=== PATIENT | female | born 1975 | race Caucasian/White ===

== ENCOUNTER 2016-12-14 14:17 | Emergency (ER) | payer BC ==
[~2016-12-14] VITALS: Ht 154.9 cm; Wt 99.8 kg
[~2016-12-14 14:17] MED LIST: ALBUTEROL INH; BACT800T OR; CHLORTHALIDONE PO; IBUP600T OR; IRON28TA OR; LISI20TA5 OR; PERC5TAB8 OR; PRENTAB8 PO
[2016-12-14 16:26] VITALS: BP 159/97
--- NOTE | 2016-12-15 07:51 | REP ---
ULTRASOUND LEFT BREAST: Real-time sonographic evaluation of the left breast is performed in the region of 3 -o'clock position to 5 -o'clock position where there is palpable abnormality with tenderness, for 1 day. At the 3 -o'clock region of the left breast is an oval hyperechoic nodule with small hypoechoic areas within it. It measures 1.1 x 0.5 x 1.1 cm. There is another adjacent cyst measuring 2 x 4 x 3 mm. This may represent a small hematoma or area of fat necrosis. No other sonographic abnormalities are seen. IMPRESSION: At 3 -o'clock position is an oval hyperechoic heterogeneous nodule 1.1 cm in maximum diameter. This may represent hematoma or an area of fat necrosis. IT is probably benign. ACR 3. Recommend followup ultrasound in 3 to 6 months. Signed by Chad Coughlin MD 12/15/2016 12:19 P
== END 2016-12-14 16:27 | disposition home or self-care (01) ==
LOC: M ED 14:39
DX: N63 Unspecified lump in breast (principal); I10 Essential (primary) hypertension; J45.909 Unspecified asthma, uncomplicated; Z79.899 Other long term (current) drug therapy; F17.210 Nicotine dependence, cigarettes, uncomplicated

== ENCOUNTER → 2017-01-21 | Outpatient (CLI) | payer BC ==
--- NOTE | 2017-01-21 15:56 | REP ---
BILATERAL MAMMOGRAM WITH DIAGNOSTIC MAMMOGRAM LEFT BREAST: HISTORY: Ultrasound 12/14/2016 showing a nodule at the 3-o'clock position of the left breast, hyperechoic and felt to be probably benign, possibly hematoma or area of fat necrosis. MLO and CC views of both breasts are performed. Spot compression views of the outer left breast are performed as well. The area of the palpable abnormality at 3-o'clock in the left breast is marked on the skin with a triangular marker. In that portion of the left breast, there is an oval 1 cm nodule which is smoothly marginated and well-defined. This appears to correspond to the sonographic abnormality. No other mass is seen bilaterally. No clustered microcalcifications are seen. IMPRESSION: ACR 3 probably benign. In the lateral left breast at the site of the reported palpable abnormality is an oval nodule measuring 1 cm in maximum diameter. Margins are smooth and well defined. This corresponds to the ultrasound finding of a hyperechoic nodule at that location. Again, this probably represents an area of fat necrosis or hematoma. Recommend followup ultrasound in 6 months. BI-RADS/ACR category 3 mammogram. Probably benign findings. Initial short-term followup (usually 6 month) examination. This mammogram was interpreted with the aid of an FDA-approved computer-aided detection system. The patient states she/he had a clinical breast exam in December 2016. The patient letter being requested is M3. Signed by Chad Coughlin MD 01/22/2017 05:11 P
== END ==
LOC: M RAD 14:06
PROVIDERS: ATTEND Nurse Practitioner Family
DX: N63 Unspecified lump in breast (principal)

== ENCOUNTER 2017-04-05 11:44 | Emergency (ER) | payer BC ==
[~2017-04-05] VITALS: Ht 154.9 cm; Wt 97.7 kg
[2017-04-05 11:52] VITALS: BP 145/85
[2017-04-05] MEDS ORDERED: LISI-538 PO (11:54)
[2017-04-05] MEDS ORDERED: IBUP-1022 PO (11:54)
[2017-04-05] MEDS ORDERED: PHEN200T22 PO (13:03)
[2017-04-05] MEDS ORDERED: NITR100C39 PO (13:03)
== END 2017-04-05 13:10 | disposition home or self-care (01) ==
LOC: M ED 11:44
DX: N39.0 Urinary tract infection, site not specified (principal); Z72.0 Tobacco use

== ENCOUNTER 2017-04-18 17:54 | Emergency (ER) | payer BC ==
[~2017-04-18] VITALS: Ht 154.9 cm; Wt 100.0 kg
[~2017-04-18 17:54] MED LIST changes: +IBUP-1022 PO; +LISI-538 PO; +NITR100C39 PO; +PHEN200T22 PO
[2017-04-18 17:55] VITALS: BP 149/82
[2017-04-18] MEDS ORDERED: CIPR-249 PO (18:20)
[2017-04-18] MEDS ORDERED: DIFL150T PO (18:20)
== END 2017-04-18 18:35 | disposition home or self-care (01) ==
LOC: M ED 17:54
DX: N10 Acute pyelonephritis (principal); Z79.899 Other long term (current) drug therapy

== ENCOUNTER → 2017-07-29 | Outpatient (CLI) | payer BC ==
[~2017-07-29] MED LIST changes: +CIPR-249 PO; +DIFL150T PO
[2017-07-29 08:51] LABS: BASO % 0.5 % (0.0-1.0); EOS # 0.2 10^3/uL (0.0-0.50); EOS % 2.5 % (0.0-3.0); IMMATURE GRANULOCYTE % 0.4 % (0-0); LYMPH % 40.6 % (24.0-44.0); MEAN CORPUSCULAR HGB CONC 33.6 g/dl (32.0-36.5); MEAN CORPUSCULAR VOLUME 92.3 fl (80.0-96.0); MONO # 0.4 10^3/uL (0.0-0.8); MONO % 4.8 % (0.0-5.0); NEUTROPHILS # 3.8 10^3/uL (1.8-7.7); NEUTROPHILS % 51.2 % (36.0-66.0); PLATELET COUNT, AUTOMATED 348 10^3/uL (150-450); RED CELL DISTRIBUTION WIDTH 13.2 % (11.5-14.5); WHITE BLOOD COUNT 7.3 10^3/uL (4.0-10.0)
[2017-07-29 09:33] LABS: ALBUMIN 3.8 GM/DL (3.2-5.2); ALBUMIN/GLOBULIN RATIO 1.15 (1.00-1.93); ALKALINE PHOSPHATASE 75 U/L (45-117); ALT/SGPT 23 U/L (12-78); ANION GAP 6 MEQ/L (8-16); AST/SGOT 13 U/L (7-37); BILIRUBIN,TOTAL 0.3 MG/DL (0.2-1.0); BLOOD UREA NITROGEN 12 MG/DL (7-18); CALCIUM LEVEL 8.6 MG/DL (8.5-10.1); CARBON DIOXIDE LEVEL 28 MEQ/L (21-32); CHLORIDE LEVEL 107 MEQ/L (98-107); CHOLESTEROL LEVEL 176 MG/DL (<200); CREATININE FOR GFR 0.68 MG/DL (0.55-1.02); GLOMERULAR FILTRATION RATE > 60.0 (>60); GLUCOSE, FASTING 86 MG/DL (70-105); POTASSIUM SERUM 4.6 MEQ/L (3.5-5.1); SODIUM LEVEL 141 MEQ/L (136-145); TOTAL PROTEIN 7.1 GM/DL (6.4-8.2); TRIGLYCERIDES LEVEL 146 MG/DL (<150)
--- NOTE | 2017-07-29 11:06 | REP ---
DIGITAL DIAGNOSTIC UNILATERAL LEFT BREAST MAMMOGRAPHY WITH CAD AND FOCUSED LEFT BREAST SONOGRAPHY: HISTORY: 6-month follow-up mammography and sonography for palpable nodule left breast upper outer quadrant. Comparison mammography January 21, 2017. Comparison sonography December 14, 2016 FINDINGS: Today's craniocaudad view again demonstrates a mixed density, oval-shaped, well-circumscribed 8 mm nodule projecting in the lateral aspect of the left breast. This is not well seen on either MLO or true ML views of the left breast. Focal spot compression CC view shows this nodule which appears to contain intralesional low fat. No other significant mammographic finding. SONOGRAPHIC FINDINGS: The left breast is scanned and 3-o'clock position. A slightly hyperechoic mixed echogenicity nodule is again seen measuring 8 mm x 4 x 6 mm located between 5 and 6 cm from the nipple. It is slightly less heterogeneous than previously. No suspicious features. IMPRESSION: The nodule is consistent with a small area of fat necrosis. It has intralesional fat on the focal spot compression images. BI-RADS/ACR category 2 mammogram. Benign finding(s). Routine annual screening mammography (for women over age 40). This mammogram was interpreted with the aid of an FDA-approved computer-aided detection system. The patient states she/he had a clinical breast exam in July 2017. The patient letter being requested is M2. Signed by Akil Guevara MD 07/29/2017 11:42 A
== END ==
LOC: M RAD 07:52
PROVIDERS: ATTEND Nurse Practitioner Family
DX: R92.2 Inconclusive mammogram (principal); I10 Essential (primary) hypertension; E56.9 Vitamin deficiency, unspecified; Z13.220 Encounter for screening for lipoid disorders; N63.21 Unspecified lump in the left breast, upper outer quadrant
CPT/HCPCS: 36415; 76642; 80053; 80061; 82306; 85025; G0206

== ENCOUNTER → 2018-02-12 | Outpatient (CLI) | payer BC ==
[2018-02-12 09:29] LABS: BASO % 0.7 % (0.0-1.0); EOS # 0.1 10^3/uL (0.0-0.50); EOS % 2.1 % (0.0-3.0); HEMATOCRIT 41.2 % (36.0-47.0); HEMOGLOBIN 14.2 g/dl (12.0-15.5); IMMATURE GRANULOCYTE % 0.2 % (0-3.0); LYMPH # 2.3 10^3/uL (1.5-4.5); LYMPH % 38.6 % (24.0-44.0); MEAN CORPUSCULAR HEMOGLOBIN 31.1 pg (27.0-33.0); MEAN CORPUSCULAR HGB CONC 34.5 g/dl (32.0-36.5); MEAN CORPUSCULAR VOLUME 90.4 fl (80.0-96.0); MONO # 0.5 10^3/uL (0.0-0.8); MONO % 7.6 % (0.0-5.0); NEUTROPHILS # 3.1 10^3/uL (1.8-7.7); NEUTROPHILS % 50.8 % (36.0-66.0); PLATELET COUNT, AUTOMATED 330 10^3/uL (150-450); RED BLOOD COUNT 4.56 10^6/uL (4.00-5.40); RED CELL DISTRIBUTION WIDTH 13.3 % (11.5-14.5); WHITE BLOOD COUNT 6.1 10^3/uL (4.0-10.0)
[2018-02-12 09:39] LABS: ALBUMIN 3.7 GM/DL (3.2-5.2); ALBUMIN/GLOBULIN RATIO 1.06 (1.00-1.93); ALKALINE PHOSPHATASE 90 U/L (45-117); ALT/SGPT 25 U/L (12-78); ANION GAP 9 MEQ/L (8-16); AST/SGOT 12 U/L (7-37); BILIRUBIN,TOTAL 0.3 MG/DL (0.2-1.0); BLOOD UREA NITROGEN 10 MG/DL (7-18); CALCIUM LEVEL 9.1 MG/DL (8.5-10.1); CARBON DIOXIDE LEVEL 26 MEQ/L (21-32); CHLORIDE LEVEL 106 MEQ/L (98-107); CREATININE FOR GFR 0.75 MG/DL (0.55-1.30); GLOMERULAR FILTRATION RATE > 60.0 (>58); GLUCOSE, FASTING 82 MG/DL (70-100); POTASSIUM SERUM 4.8 MEQ/L (3.5-5.1); SODIUM LEVEL 141 MEQ/L (136-145); TOTAL PROTEIN 7.2 GM/DL (6.4-8.2)
[2018-02-12 09:44] LABS: TOTAL 25(OH) VITAMIN D 39.1 NG/ML (30.0-100.0)
== END ==
LOC: M LAB 07:39
DX: K21.9 Gastro-esophageal reflux disease without esophagitis (principal); E55.9 Vitamin D deficiency, unspecified
CPT/HCPCS: 80053

== ENCOUNTER 2018-08-17 16:35 | Emergency (ER) | payer BC ==
[~2018-08-17] VITALS: Ht 154.9 cm; Wt 86.4 kg
[2018-08-17 16:36] VITALS: BP 134/86
[2018-08-17] MEDS ORDERED: PHEN-239 (16:40)
[2018-08-17] MEDS ORDERED: MACR100C43 PO (17:26)
[2018-08-17] MEDS ORDERED: PYRI1TAB5 PO (17:26)
[2018-08-17] MEDS ORDERED: DIFL150T PO (17:26)
[2018-08-17] MEDS ORDERED: NITROFURANTOIN (MACROBID) 100 MG CAP PO ONE (17:30)
== END 2018-08-17 17:40 | disposition home or self-care (01) ==
LOC: M ED 16:35
DX: R30.0 Dysuria (principal); Z79.899 Other long term (current) drug therapy

== ENCOUNTER → 2018-09-26 | Outpatient (CLI) | payer BC ==
[~2018-09-26] MED LIST changes: +MACR100C43 PO; +PHEN-239; +PYRI1TAB5 PO
[2018-09-26 08:32] LABS: BASO % 0.5 % (0.0-1.0); EOS # 0.1 10^3/uL (0.0-0.50); EOS % 1.6 % (0.0-3.0); HEMATOCRIT 40.9 % (36.0-47.0); HEMOGLOBIN 13.5 g/dl (12.0-15.5); LYMPH # 2.4 10^3/uL (1.5-4.5); LYMPH % 43.3 % (24.0-44.0); MEAN CORPUSCULAR HEMOGLOBIN 31.3 pg (27.0-33.0); MEAN CORPUSCULAR VOLUME 94.9 fl (80.0-96.0); MONO # 0.3 10^3/uL (0.0-0.8); MONO % 5.8 % (0.0-5.0); NEUTROPHILS # 2.7 10^3/uL (1.8-7.7); NEUTROPHILS % 48.4 % (36.0-66.0); PLATELET COUNT, AUTOMATED 329 10^3/uL (150-450); RED BLOOD COUNT 4.31 10^6/uL (4.00-5.40); WHITE BLOOD COUNT 5.6 10^3/uL (4.0-10.0)
[2018-09-26 08:58] LABS: ALBUMIN 3.6 GM/DL (3.2-5.2); ALT/SGPT 26 U/L (12-78); BILIRUBIN,TOTAL 0.3 MG/DL (0.2-1.0); BLOOD UREA NITROGEN 14 MG/DL (7-18); CALCIUM LEVEL 8.6 MG/DL (8.5-10.1); CARBON DIOXIDE LEVEL 28 MEQ/L (21-32); CHLORIDE LEVEL 108 MEQ/L (98-107); CHOLESTEROL LEVEL 160 MG/DL (<200); CHOLESTEROL RISK RATIO 3.636 (<5); CREATININE FOR GFR 0.62 MG/DL (0.55-1.30); GLOMERULAR FILTRATION RATE > 60.0 (>58); GLUCOSE, FASTING 84 MG/DL (70-100); HDL CHOLESTEROL 44 MG/DL (>40); LDL CHOLESTEROL 96 MG/DL (<100); NON-HDL-C 116 MG/DL; POTASSIUM SERUM 4.4 MEQ/L (3.5-5.1); SODIUM LEVEL 143 MEQ/L (136-145); TOTAL PROTEIN 6.8 GM/DL (6.4-8.2); TRIGLYCERIDES LEVEL 100 MG/DL (<150)
== END ==
LOC: M LAB 08:08
PROVIDERS: ATTEND Nurse Practitioner Family
DX: I10 Essential (primary) hypertension (principal)

== ENCOUNTER 2019-01-24 15:36 | Emergency (ER) | payer BC ==
[~2019-01-24] VITALS: Ht 154.9 cm; Wt 89.1 kg
[2019-01-24] MEDS ORDERED: IBUP-1114 PO (15:50)
--- NOTE | 2019-01-24 16:16 | REP ---
Clinical: Trauma. Comparison: None . Findings: The ventricles, sulci, and cisterns are normal in position and appearance. Coughlin-white differentiation is maintained. No acute intracranial hemorrhage, mass/mass effect, pathology or trauma/injury. No evidence for acute infarction. No extra-axial fluid collection. Calvarium is intact. Paranasal sinuses and mastoid air cells are clear. Impression: No evidence for acute intracranial pathology or trauma/injury. Electronically Signed by Murali Bajwa MD 01/24/2019 04:07 P
--- NOTE | 2019-01-24 16:17 | REP ---
Clinical: Trauma. Technique: Axial noncontrast images from the skull base to the thoracic inlet with coronal and sagittal re-formations. Findings: Straightening of normal lordosis is nonspecific. Vertebral bodies are intact and there is no evidence for acute fracture / compression injury or subluxation. Posterior elements and spinous processes are intact. Spinal canal is patent. Surrounding soft tissues are unremarkable. Impression: 1. Essentially normal age-appropriate cervical spine CT. 2. No evidence for acute trauma/injury or significant pathology. 3. Straightening of normal lordosis is nonspecific and may be secondary to positioning versus pain/spasm. Electronically Signed by Murali Bajwa MD 01/24/2019 04:08 P
[2019-01-24] MEDS ORDERED: REGL10TA6 PO (17:43)
[2019-01-24] MEDS ORDERED: METOCLOPRAMIDE 10 MG TAB PO ONE (17:45)
[2019-01-24 18:00] VITALS: BP 132/88
== END 2019-01-24 18:01 | disposition home or self-care (01) ==
LOC: M ED 15:36
DX: S06.0X0A Concussion without loss of consciousness, initial encounter (principal); S00.03XA Contusion of scalp, initial encounter; S16.1XXA Strain of muscle, fascia and tendon at neck level, initial encounter; W22.8XXA Striking against or struck by other objects, initial encounter; Y92.098 Other place in other non-institutional residence as the place of occurrence of the external cause; I10 Essential (primary) hypertension; Z79.899 Other long term (current) drug therapy

== ENCOUNTER → 2019-04-15 | Outpatient (CLI) | payer BC ==
[~2019-04-15] MED LIST changes: +IBUP-1114 PO; +REGL10TA6 PO
--- NOTE | 2019-04-15 15:32 | REP ---
BILATERAL MAMMOGRAM WITH 3D TOMOSYNTHESIS, DIAGNOSTIC MAMMOGRAM RIGHT BREAST AND RIGHT BREAST ULTRASOUND: The patient reports a palpable lump far posterior in the upper outer quadrant of the right breast. The area is marked on the skin with a triangular marker. There is no family history of breast cancer. [facility] lifetime risk of breast cancer 12.1%. MLO and CC views of both breasts performed with 3D tomosynthesis. Additional spot compression views performed of the upper outer quadrant of the right breast. There is mild scattered fibroglandular tissue again seen bilaterally. Stable intramammary lymph node is again seen in the outer left breast. There is no mammographic abnormality at the site of the palpable lump. There is no mass or clustered microcalcifications bilaterally. Normal sized lymph nodes are seen in both axillary regions. Real-time sonographic evaluation of the right breast performed at the site of the palpable lump far posterior in the upper outer quadrant. There is a focal hyperechoic area at that location measuring approximately 9 x 4 x 8 mm with echotexture consistent with a small focal fat lobule, benign. IMPRESSION: ACR 2 benign. No suspicious mass or clustered microcalcifications. No mammographic abnormality is seen at the site of the palpable lump in the upper outer quadrant of the right breast posteriorly. By ultrasound there appears to be a small fat lobule at that location with no suspicious mass sonographically. There is an intramammary lymph node in the outer left breast which is stable compared to the prior study in 2017. Recommend followup mammogram in one year. BIRADS 2: BI-RADS/ACR category 2 mammogram. Benign Findings. This mammogram was interpreted with the aid of an FDA-approved computer-aided detection system. The patient states she/he had a clinical breast exam in 07/2018. The patient letter being requested is M2. Electronically Signed by Chad Coughlin MD 04/15/2019 04:45 P
== END ==
LOC: M RAD 13:46
PROVIDERS: ATTEND Physician Assistant
DX: N63.10 Unspecified lump in the right breast, unspecified quadrant (principal); N64.4 Mastodynia
CPT/HCPCS: 76642; 77066; G0279

== ENCOUNTER → 2020-01-09 | Outpatient (CLI) | payer BC ==
[2020-01-09 14:44] LABS: BASO % 0.6 % (0.0-1.0); EOS # 0.1 10^3/uL (0.0-0.5); EOS % 0.8 % (0.0-3.0); HEMATOCRIT 39.7 % (36.0-47.0); HEMOGLOBIN 13.4 g/dl (12.0-15.5); LYMPH # 2.7 10^3/uL (1.5-5.0); LYMPH % 37.6 % (24.0-44.0); MEAN CORPUSCULAR HEMOGLOBIN 30.7 pg (27.0-33.0); MEAN CORPUSCULAR HGB CONC 33.8 g/dl (32.0-36.5); MEAN CORPUSCULAR VOLUME 91.1 fl (80.0-96.0); MONO # 0.5 10^3/uL (0.0-0.8); MONO % 6.9 % (0.0-5.0); NEUTROPHILS # 3.9 10^3/uL (1.5-8.5); PLATELET COUNT, AUTOMATED 317 10^3/uL (150-450); RED BLOOD COUNT 4.36 10^6/uL (4.00-5.40); WHITE BLOOD COUNT 7.2 10^3/uL (4.0-10.0)
[2020-01-09 15:03] LABS: ERYTHROCYTE SEDIMENTATION RATE 14 mm/hr (0-20)
[2020-01-09 15:18] LABS: ALBUMIN 3.7 GM/DL (3.2-5.2); ALT/SGPT 18 U/L (12-78); BILIRUBIN,TOTAL 0.2 MG/DL (0.2-1.0); BLOOD UREA NITROGEN 7 MG/DL (7-18); CALCIUM LEVEL 8.5 MG/DL (8.5-10.1); CARBON DIOXIDE LEVEL 23 MEQ/L (21-32); CHLORIDE LEVEL 108 MEQ/L (98-107); CREATININE FOR GFR 0.65 MG/DL (0.55-1.30); GLOMERULAR FILTRATION RATE > 60.0 (>58); GLUCOSE, FASTING 77 MG/DL (70-100); POTASSIUM SERUM 4.1 MEQ/L (3.5-5.1); RHEUMATOID FACTOR QUANT < 10.0 IU/ML (<15.0); SODIUM LEVEL 137 MEQ/L (136-145); TOTAL PROTEIN 7.1 GM/DL (6.4-8.2)
[2020-01-10 13:33] LABS: ANTINUCLEAR ANTIBODIES DIRECT Negative (Negative); SJOGREN'S ANTI SS-A <0.2 AI (0.0-0.9); SJOGREN'S ANTI SS-B <0.2 AI (0.0-0.9)
== END ==
LOC: M LAB 13:44
PROVIDERS: ATTEND Nurse Practitioner Family
DX: R21 Rash and other nonspecific skin eruption (principal)

== ENCOUNTER → 2020-01-19 | Outpatient (CLI) | payer BC ==
[2020-01-19 10:28] LABS: BASO % 0.5 % (0.0-1.0); EOS # 0.1 10^3/uL (0.0-0.5); EOS % 2.1 % (0.0-3.0); LYMPH # 2.1 10^3/uL (1.5-5.0); LYMPH % 35.9 % (24.0-44.0); MEAN CORPUSCULAR HEMOGLOBIN 30.7 pg (27.0-33.0); MEAN CORPUSCULAR HGB CONC 33.3 g/dl (32.0-36.5); MEAN CORPUSCULAR VOLUME 92.2 fl (80.0-96.0); MONO # 0.4 10^3/uL (0.0-0.8); MONO % 7.2 % (0.0-5.0); NEUTROPHILS # 3.1 10^3/uL (1.5-8.5); PLATELET COUNT, AUTOMATED 358 10^3/uL (150-450); RED BLOOD COUNT 4.23 10^6/uL (4.00-5.40); WHITE BLOOD COUNT 5.8 10^3/uL (4.0-10.0)
[2020-01-19 10:52] LABS: ALBUMIN 3.5 GM/DL (3.2-5.2); ALT/SGPT 18 U/L (12-78); BILIRUBIN,DIRECT < 0.1 MG/DL (0.0-0.2); BILIRUBIN,TOTAL 0.2 MG/DL (0.2-1.0); BLOOD UREA NITROGEN 10 MG/DL (7-18); CALCIUM LEVEL 8.6 MG/DL (8.5-10.1); CARBON DIOXIDE LEVEL 25 MEQ/L (21-32); CHLORIDE LEVEL 110 MEQ/L (98-107); CHOLESTEROL LEVEL 182 MG/DL (<200); CHOLESTEROL RISK RATIO 4.918 (<5); CREATININE FOR GFR 0.75 MG/DL (0.55-1.30); GLOMERULAR FILTRATION RATE > 60.0 (>58); GLUCOSE, FASTING 96 MG/DL (70-100); HCG, SERUM QUANTITATIVE < 1.0 MIU/ML; HDL CHOLESTEROL 37 MG/DL (>40); LDL CHOLESTEROL 109 MG/DL (<100); NON-HDL-C 145 MG/DL; POTASSIUM SERUM 4.3 MEQ/L (3.5-5.1); SODIUM LEVEL 141 MEQ/L (136-145); TOTAL PROTEIN 6.5 GM/DL (6.4-8.2); TRIGLYCERIDES LEVEL 180 MG/DL (<150)
== END ==
LOC: M LAB 08:55
PROVIDERS: ATTEND Nurse Practitioner Family
DX: Z51.81 Encounter for therapeutic drug level monitoring (principal); Z79.899 Other long term (current) drug therapy; L70.0 Acne vulgaris

== ENCOUNTER → 2020-02-21 | Outpatient (CLI) | payer BC ==
[~2020-02-21] MED LIST changes: +BIMA01SOL OP
[2020-02-21 06:46] LABS: BASO % 0.3 % (0.0-1.0); EOS # 0.1 10^3/uL (0.0-0.5); EOS % 1.4 % (0.0-3.0); HEMATOCRIT 39.6 % (36.0-47.0); LYMPH # 1.9 10^3/uL (1.5-5.0); LYMPH % 29.8 % (24.0-44.0); MEAN CORPUSCULAR HEMOGLOBIN 30.8 pg (27.0-33.0); MEAN CORPUSCULAR HGB CONC 32.8 g/dl (32.0-36.5); MEAN CORPUSCULAR VOLUME 93.8 fl (80.0-96.0); MONO # 0.4 10^3/uL (0.0-0.8); MONO % 5.7 % (0.0-5.0); NEUTROPHILS % 62.5 % (36.0-66.0); PLATELET COUNT, AUTOMATED 279 10^3/uL (150-450); RED BLOOD COUNT 4.22 10^6/uL (4.00-5.40); WHITE BLOOD COUNT 6.4 10^3/uL (4.0-10.0)
[2020-02-21 07:15] LABS: ALBUMIN 3.4 GM/DL (3.2-5.2); ALT/SGPT 17 U/L (12-78); BILIRUBIN,DIRECT < 0.1 MG/DL (0.0-0.2); BILIRUBIN,TOTAL 0.3 MG/DL (0.2-1.0); BLOOD UREA NITROGEN 9 MG/DL (7-18); CALCIUM LEVEL 8.5 MG/DL (8.5-10.1); CARBON DIOXIDE LEVEL 25 MEQ/L (21-32); CHLORIDE LEVEL 111 MEQ/L (98-107); CHOLESTEROL LEVEL 172 MG/DL (<200); CHOLESTEROL RISK RATIO 4.648 (<5); CREATININE FOR GFR 0.77 MG/DL (0.55-1.30); GLOMERULAR FILTRATION RATE > 60.0 (>58); GLUCOSE, FASTING 114 MG/DL (70-100); HCG, SERUM QUANTITATIVE < 1.0 MIU/ML; HDL CHOLESTEROL 37 MG/DL (>40); LDL CHOLESTEROL 98 MG/DL (<100); NON-HDL-C 135 MG/DL; POTASSIUM SERUM 3.8 MEQ/L (3.5-5.1); SODIUM LEVEL 139 MEQ/L (136-145); TOTAL PROTEIN 6.5 GM/DL (6.4-8.2); TRIGLYCERIDES LEVEL 187 MG/DL (<150)
== END ==
LOC: M LAB 06:16
PROVIDERS: ATTEND Nurse Practitioner Family
DX: L70.0 Acne vulgaris (principal); Z79.899 Other long term (current) drug therapy

== ENCOUNTER 2020-04-20 22:13 | Emergency (ER) | payer BC ==
[~2020-04-20] VITALS: Ht 154.9 cm; Wt 107.1 kg
[~2020-04-20 22:13] MED LIST changes: -BIMA01SOL OP
[2020-04-20] MEDS ORDERED: BIMA01SOL OP (22:25)
[2020-04-20 23:17] LABS: BASO % 0.5 % (0.0-1.0); EOS # 0.1 10^3/uL (0.0-0.5); EOS % 1.7 % (0.0-3.0); HEMOGLOBIN 12.7 g/dl (12.0-15.5); LYMPH # 2.4 10^3/uL (1.5-5.0); LYMPH % 41.7 % (24.0-44.0); MEAN CORPUSCULAR HEMOGLOBIN 30.5 pg (27.0-33.0); MEAN CORPUSCULAR HGB CONC 33.4 g/dl (32.0-36.5); MEAN CORPUSCULAR VOLUME 91.1 fl (80.0-96.0); MONO # 0.4 10^3/uL (0.0-0.8); MONO % 6.3 % (0.0-5.0); NEUTROPHILS # 2.9 10^3/uL (1.5-8.5); NEUTROPHILS % 49.6 % (36.0-66.0); PLATELET COUNT, AUTOMATED 328 10^3/uL (150-450); RED BLOOD COUNT 4.17 10^6/uL (4.00-5.40); WHITE BLOOD COUNT 5.9 10^3/uL (4.0-10.0)
[2020-04-20] MEDS ORDERED: ACETAMINOPHEN TAB 650MG DOSE (2X325MG) PO ONE (23:30)
[2020-04-20] MEDS ORDERED: ASPIRIN 81 MG CHEW TABLET PO ONE (23:30)
[2020-04-20] MEDS ORDERED: NITROGLYCERIN 0.4 MG SUBL TABLET SL PRN (23:30)
--- NOTE | 2020-04-20 23:30 | REPVR ---
PROCEDURE INFORMATION: Exam: XR Chest, 1 View Exam date and time: 04/20/2020 10:26 PM Age: 44 years old Clinical indication: Chest pain; Type not specified TECHNIQUE: Imaging protocol: XR of the chest Views: 1 view. COMPARISON: CR Chest, 2 view PA, Lat 01/28/2015 4:47 PM FINDINGS: Lungs: The lungs appear clear. Pleural space: There is no evidence of pneumothorax or pleural effusion. Heart/Mediastinum: The heart is normal in size. Bones/joints: There is no evidence of bony abnormality. IMPRESSION: Clear appearing lungs. Electronically signed by: Osei Cali On 04/20/2020 23:30:36 PM
[2020-04-20 23:44] LABS: CALCIUM LEVEL 8.4 MG/DL (8.5-10.1); CREATININE FOR GFR 1.08 MG/DL (0.55-1.30); GLOMERULAR FILTRATION RATE 59.2 (>58)
[2020-04-21 01:20] VITALS: BP 112/71
--- NOTE | 2020-04-21 12:18 | ECGEPIP ---
[facility] - ED Test Date: 2020-04-21 Pat Name: JENARO VALIENTE Department: Room: - Gender: Female Sales Operations Consultant: : 1975 Requested By: ALE Turner Order Number: [id number] Reading MD: Domenic Ren Measurements Intervals [place] Rate: 62 P: 5 [place]: 126 QRS: 14 QRSD: 86 T: 11 QT: 416 QTc: 424 Interpretive Statements SINUS RHYTHM LOW QRS VOLTAGE IN PRECORDIAL LEADS POOR R WAVE PROGRESSION NSTTW ABNORMALITIES SIMILAR TO 01/28/15 Electronically Signed on 04-21-2020 12:18:10 EDT by Domenic Ren
--- NOTE | 2020-04-21 12:19 | ECGEPIP ---
[facility] - ED Test Date: 2020-04-20 Pat Name: JENARO VALIENTE Department: Room: - Gender: Female Service Desk Manager: : 1975 Requested By: ALE Turner Order Number: [id number] Reading MD: Domenic Ren Measurements Intervals [place] Rate: 69 P: 13 [place]: 128 QRS: 5 QRSD: 73 T: 14 QT: 377 QTc: 405 Interpretive Statements SINUS RHYTHM NSTTW ABNORMALITIES SIMILAR TO 01/28/15 Electronically Signed on 04-21-2020 12:18:47 EDT by Domenic Ren
== END 2020-04-21 03:44 | disposition home or self-care (01) ==
LOC: M ED 22:13
DX: R07.9 Chest pain, unspecified (principal); I11.9 Hypertensive heart disease without heart failure; F17.200 Nicotine dependence, unspecified, uncomplicated

== ENCOUNTER → 2020-04-25 | Outpatient (CLI) | payer BC ==
[~2020-04-25] MED LIST changes: +BIMA01SOL OP
== END ==
LOC: M LABSMTC 11:54
PROVIDERS: ATTEND Family Medicine
DX: Z20.828 Contact with and (suspected) exposure to other viral communicable diseases (principal)
CPT/HCPCS: C9803; U0003

== ENCOUNTER → 2020-09-20 | Outpatient (CLI) | payer BC ==
[~2020-09-20] MED LIST changes: -LISI-538 PO; +LISI20TA33 PO
--- NOTE | 2020-09-20 07:52 | REP ---
INDICATION: PAIN IN RIGHT HIP. COMPARISON: None. TECHNIQUE: Single AP view of the pelvis FINDINGS: Osseous structures, joint spaces, and surrounding soft tissues are normal and age-appropriate. Very minimal relatively symmetric increased sclerosis to the acetabular roof with age-related changes. No acute or healed injury. Surrounding soft tissues are normal. IMPRESSION: Relatively normal age-appropriate examination. <Electronically signed by Murali Bajwa > 09/20/20 0725
--- NOTE | 2020-09-20 07:55 | REP ---
INDICATION: PAIN IN RIGHT HIP COMPARISON: None. TECHNIQUE: AP and frog-lateral views of the right hip FINDINGS: Generalized age-related changes include subtle increased sclerosis to the acetabulum with minimal joint space narrowing. No further overt osteoarthritic or significant degenerative changes are appreciated. No evidence for acute or healed injury. Surrounding soft tissues are normal. IMPRESSION: Mild generalized age-related changes. <Electronically signed by Murali Bajwa > 09/20/20 0758
== END ==
LOC: M RAD 06:10
PROVIDERS: ATTEND Physician Assistant
DX: M25.551 Pain in right hip (principal)

== ENCOUNTER 2020-10-06 19:48 | Emergency (ER) | payer BC ==
[~2020-10-06] VITALS: Ht 154.9 cm; Wt 111.2 kg
[~2020-10-06 19:48] MED LIST changes: -BIMA01SOL OP; +BIMA01SOL OU
[2020-10-06] MEDS ORDERED: METOCLOPRAMIDE INJ 10MG/2ML VIAL (J2765 PER 1) IV ONE (20:50)
[2020-10-06] MEDS ORDERED: diphenhydrAMINE 50MG/ML VIAL (J1200) IV ONE (20:50)
[2020-10-06] MEDS ORDERED: NS 1,000 ML IV ONE (20:50)
[2020-10-06] MEDS ORDERED: KETOROLAC 30 MG/ML 1ML VIAL IV ONE (20:50)
--- NOTE | 2020-10-06 21:15 | REPVR ---
PROCEDURE INFORMATION: Exam: CT Head Without Contrast Exam date and time: 10/06/2020 8:58 PM Age: 44 years old Clinical indication: Numbness / parasthesia; Left; Additional info: Left sided parethesia TECHNIQUE: Imaging protocol: Computed tomography of the head without contrast. Radiation optimization: All CT scans at this facility use at least one of these dose optimization techniques: automated exposure control; mA and/or kV adjustment per patient size (includes targeted exams where dose is matched to clinical indication); or iterative reconstruction. COMPARISON: CT Head without contrast 01/24/2019 3:50 PM FINDINGS: Brain: Normal. No hemorrhage. Unremarkable white matter. No mass effect. Cerebral ventricles: No ventriculomegaly. Bones/joints: Unremarkable. No acute fracture. Paranasal sinuses: Minimal paranasal sinus disease. Mastoid air cells: Visualized mastoid air cells are well aerated. Soft tissues: Unremarkable. IMPRESSION: No acute intracranial abnormality. Electronically signed by: Triston Natarajan On 10/06/2020 21:16:05 PM
[2020-10-06 22:01] LABS: BASO % 0.5 % (0.0-1.0); EOS # 0.2 10^3/uL (0.0-0.5); EOS % 2.1 % (0.0-3.0); HEMATOCRIT 37.7 % (36.0-47.0); HEMOGLOBIN 12.4 g/dl (12.0-15.5); LYMPH # 2.9 10^3/uL (1.5-5.0); LYMPH % 36.2 % (24.0-44.0); MEAN CORPUSCULAR HGB CONC 32.9 g/dl (32.0-36.5); MEAN CORPUSCULAR VOLUME 91.3 fl (80.0-96.0); MONO # 0.5 10^3/uL (0.0-0.8); MONO % 5.8 % (2.0-8.0); NEUTROPHILS # 4.4 10^3/uL (1.5-8.5); PLATELET COUNT, AUTOMATED 314 10^3/uL (150-450); RED BLOOD COUNT 4.13 10^6/uL (4.00-5.40); WHITE BLOOD COUNT 7.9 10^3/uL (4.0-10.0)
[2020-10-06 22:34] LABS: BLOOD UREA NITROGEN 12 MG/DL (7-18); CALCIUM LEVEL 8.9 MG/DL (8.5-10.1); CARBON DIOXIDE LEVEL 27 MEQ/L (21-32); CHLORIDE LEVEL 111 MEQ/L (98-107); CREATININE FOR GFR 0.68 MG/DL (0.55-1.30); GLOMERULAR FILTRATION RATE > 60.0 (>58); GLUCOSE, FASTING 106 MG/DL (70-100); POTASSIUM SERUM 3.9 MEQ/L (3.5-5.1); SODIUM LEVEL 143 MEQ/L (136-145)
[2020-10-06 22:54] VITALS: BP 132/77
== END 2020-10-06 23:04 | disposition home or self-care (01) ==
LOC: M ED 19:48
DX: G43.909 Migraine, unspecified, not intractable, without status migrainosus (principal); I10 Essential (primary) hypertension; Z79.899 Other long term (current) drug therapy; F17.210 Nicotine dependence, cigarettes, uncomplicated
CPT/HCPCS: 70450; 80048; 85025; 96361; 96374; 96375; 99284; J1200; J1885; J2765

== ENCOUNTER 2020-10-09 08:00 | Observation (INO) | payer BC ==
[~2020-10-09] VITALS: Ht 152.4 cm; Wt 113.2 kg
--- NOTE | 2020-10-09 08:47 | REP ---
INDICATION: CVA - Nursing interventions must not delay CT. COMPARISON: Comparison CT study of the brain is from October 06, 2020.. TECHNIQUE: Helical scanning is acquired. 5 mm axial images were reformatted. Coronal MPR images were generated. FINDINGS: Bone window settings demonstrate an intact bony calvarium. There is no evidence of skull fracture or incidental bony calvarial lesion. The visualized paranasal sinuses appear clear. No intraorbital abnormality is seen. On soft tissue window setting images; the lateral, third, and fourth ventricles are normal in size and position. Coughlin-white differentiation pattern is normal above and below the tentorium. There are is no evidence of intracranial hemorrhage. No mass, edema, infarction, or midline shift is seen. No extra-axial fluid collection is appreciated. IMPRESSION: Negative noncontrast head CT. <Electronically signed by Lorenzo Guevara > 10/09/20 [id number]
--- NOTE | 2020-10-09 09:15 | REP ---
INDICATION: CVA COMPARISON: 04/20/2020 TECHNIQUE: Portable AP view of the chest FINDINGS: The mediastinum and cardiac silhouette are stable and within normal limits for portable technique. The lung cobos are clear without acute consolidation, effusion, or pneumothorax. Skeletal structures are intact. IMPRESSION: No acute cardiopulmonary process appreciated. <Electronically signed by Murali Bajwa > 10/09/20 0901
[2020-10-09] MEDS ORDERED: METOCLOPRAMIDE INJ 10MG/2ML VIAL (J2765 PER 1) IV ONE (09:30)
[2020-10-09 09:38] LABS: BASO % 0.4 % (0.0-1.0); EOS # 0.1 10^3/uL (0.0-0.5); EOS % 1.8 % (0.0-3.0); HEMATOCRIT 39.2 % (36.0-47.0); HEMOGLOBIN 12.9 g/dl (12.0-15.5); LYMPH % 28.7 % (24.0-44.0); MEAN CORPUSCULAR HGB CONC 32.9 g/dl (32.0-36.5); MEAN CORPUSCULAR VOLUME 91.2 fl (80.0-96.0); MONO # 0.4 10^3/uL (0.0-0.8); MONO % 5.9 % (2.0-8.0); NEUTROPHILS # 4.3 10^3/uL (1.5-8.5); NEUTROPHILS % 62.8 % (36.0-66.0); PLATELET COUNT, AUTOMATED 311 10^3/uL (150-450); WHITE BLOOD COUNT 6.8 10^3/uL (4.0-10.0)
[2020-10-09 09:58] LABS: HCG, SERUM QUALITATIVE NEGATIVE (NEGATIVE)
[2020-10-09 10:01] LABS: ALBUMIN 3.5 GM/DL (3.2-5.2); ALT/SGPT 23 U/L (12-78); BILIRUBIN,DIRECT < 0.1 MG/DL (0.0-0.2); BILIRUBIN,TOTAL 0.2 MG/DL (0.2-1.0); BLOOD UREA NITROGEN 9 MG/DL (7-18); CALCIUM LEVEL 8.5 MG/DL (8.5-10.1); CARBON DIOXIDE LEVEL 25 MEQ/L (21-32); CHLORIDE LEVEL 111 MEQ/L (98-107); CK-MB VALUE MASS < 1.0 NG/ML (<3.6); CPK CREATINE PHOSPHOKINASE 56 U/L (26-192); CREATININE FOR GFR 0.65 MG/DL (0.55-1.30); GLOMERULAR FILTRATION RATE > 60.0 (>58); GLUCOSE, FASTING 90 MG/DL (70-100); MB/CK RELATIVE INDEX 1.79 (< OR =4); POTASSIUM SERUM 4.1 MEQ/L (3.5-5.1); SODIUM LEVEL 141 MEQ/L (136-145); TOTAL PROTEIN 6.8 GM/DL (6.4-8.2); TROPONIN I < 0.02 NG/ML (< 0.10)
[2020-10-09] MEDS ORDERED: ACETAMINOPHEN 500 MG TAB PO ONE (10:20)
[2020-10-09 10:39] LABS: INR 0.95; PROTHROMBIN TIME 12.9 SECONDS (12.5-14.3)
[2020-10-09 10:40] LABS: PARTIAL THROMBOPLASTIN TIME 28.3 SECONDS (24.2-38.5)
[2020-10-09] MEDS ORDERED: KETOROLAC 30 MG/ML 1ML VIAL IV ONE (11:00)
[2020-10-09] MEDS ORDERED: ASPIRIN 325 MG TAB PO ONE (11:20)
--- NOTE | 2020-10-09 12:06 | ECGEPIP ---
[facility] - ED Test Date: 2020-10-09 Pat Name: JENARO VALIENTE Department: Room: - Gender: Female Electronic Equipment Installer: renato : 1975 Requested By: JOON Mcdonald Order Number: [id number] Reading MD: Domenic Ren Measurements Intervals [place] Rate: 77 P: 10 [place]: 120 QRS: 9 QRSD: 70 T: 9 QT: 380 QTc: 430 Interpretive Statements Normal sinus rhythm Low voltage in precordial leads POOR R WAVE PROGRESSION NONSPECIFIC T WAVE ABNORMALITY(S) SIMILAR TO 04/21/20 Electronically Signed on 10-09-2020 12:06:09 EST by Domenic Ren
--- NOTE | 2020-10-09 14:01 | REP ---
INDICATION: parasthesia/ vertigo. COMPARISON: Comparison is made with CT study of the brain from earlier this date.. TECHNIQUE: Axial and sagittal imaging planes are utilized for T1 and T2-weighted scans. Sequences include spin-echo, fast spin echo, FLAIR, and diffusion weighted sequences. FINDINGS: No bony calvarial lesion is seen. Craniocervical junction and upper cervical cord are normal in appearance. There is no MR evidence of significant paranasal sinus disease. No intraorbital abnormality is seen. The lateral, third, and fourth ventricles are normal in size and position. Coughlin-white differentiation pattern is intact above and below the tentorium. There is no evidence of intracranial hemorrhage. No mass, infarction, extra-axial fluid collection or midline shift is seen. No abnormal white matter lesion is seen. IMPRESSION: Negative brain MRI study. <Electronically signed by Lorenzo Guevara > 10/09/20 [id number]
[2020-10-09 15:39] LABS: RSV AMPLIFICATION NEGATIVE (NEGATIVE)
[2020-10-09] MEDS ORDERED: IBUP-1764 PO (15:44)
--- NOTE | 2020-10-09 15:44 | HPEPDOC ---
General Date of Admission 10/09/20 Date of Service: Oct 09, 2020 Chief Complaint The patient is a 44-year-old female admitted with a reason for visit of Left Arm Pain/ Numbness On Face. Source: Patient Exam Limitations: No limitations Timing/Duration: Week(s) Severity: Mild History of Present Illness Patient is 44 years old female with past medical history of hypertension, obesity, cardiomyopathy which is resolved presented to the hospital with left-sided headache, left-sided facial numbness and left-sided body paresthesias. Patient stated that around 5-6 days she started having left-sided headache 7 out of 10, associated with left sided facial numbness and paresthesia in her left arm and left leg. Patient states that she has never had these symptoms before. She went to urgent care, CT head was done, it was negative for stroke. On the next day tingling, paresthesias resolved completely, however she continued having left-sided headache, constant, partially alleviated with pain medications. After few days headache completely resolved until today morning. In the morning patient was having the same symptoms as left-sided headache, left- sided body paresthesias, completely resolved after pain medications given in ER. Patient denied any fever, chills, nausea, diarrhea or dysuria. She denied any limbs weakness or difficulties in articulation. In ER patient was found to have elevated systolic blood pressure of 180, labs pertinent for no leukocytosis, normal hemoglobin, negative troponin. CT head and brain MRI negative for stroke or acute bleed. I talked to neurologist Dr Pablo, he recommended to admit patient for observation and hypercoagulable workup. Home Medications Scheduled Bimatoprost (Lumigan) 0.01% 2.5ML Drops, 1 DROP OU QHS, (Reported) Lisinopril (Lisinopril) 20 Mg Tab, 20 MG PO QHS, (Reported) Scheduled PRN Ibuprofen (Ibuprofen) 200 Mg Tablet, 400 MG PO QID PRN for PAIN, (Reported) Allergies Coded Allergies: No Known Allergies (Verified , 02/25/12) Past Medical History Medical History hypertension, obesity, cardiomyopathy, seasonal asthma Family History Mother from cardiomyopathy Social History * Smoker: current smoker Alcohol: Denies Drugs: denies A-FIB/CHADSVASC A-FIB History Current/History of A-Fib/PAF?: No Current PO Anticoag Therapy: No Review of Systems Constitutional: Denies: Chills, Fever Eyes: Denies: Pain ENT: Reports: Head Aches Skin: Denies: Rash, Lesions Pulmonary: Denies: Dyspnea, Cough Cardiovascular: Denies: Chest Pain Gastrointestinal: Denies: Nausea, Vomiting Genitourinary: Denies: Dysuria, Frequency Hematologic: Denies: Bruising, Bleeding Excessively Endocrine: Denies: Polydipsia Musculoskeletal: Denies: Neck Pain, Back Pain Neurological: Reports: Numbness (left facial numbness, paresthesia and tingling of left arm and left leg) Psych: Reports: Mood Normal Physical Examination General Exam: Positive: Alert, Cooperative Eye Exam: Positive: PERRLA ENT Exam: Positive: Atraumatic Neck Exam: Positive: Supple; Negative: JVD Chest Exam: Positive: Clear to auscultation Heart Exam: Positive: Rate Normal; Negative: Tachycardic Telemetry: Positive: No significant arrhythmia Abdomen Exam: Positive: Normal bowel sounds Extremity Exam: Negative: Clubbing, Cyanosis Skin Exam: Positive: Nl turgor and temperature Neuro Exam: Positive: Strength at 5/5 X4 ext Psych Exam: Positive: Mental status NL, Oriented x 3 Vital Signs Vital Signs Date Time Temp Pulse Resp B/P (MAP) Pulse Ox O2 Delivery O2 Flow Rate FiO2 10/09/20 13:44 98.0 10/09/20 10:30 79 153/95 (114) 97 10/09/20 08:01 22 Room Air Laboratory Data Labs 24H Laboratory Tests 2 10/09/20 09:22: Immature Granulocyte % (Auto) 0.4, Neutrophils (%) (Auto) 62.8, Lymphocytes (%) (Auto) 28.7, Monocytes (%) (Auto) 5.9, Eosinophils (%) (Auto) 1.8, Basophils (%) (Auto) 0.4, Neutrophils # (Auto) 4.3, Lymphocytes # (Auto) 2.0, Monocytes # (Auto) 0.4, Eosinophils # (Auto) 0.1, Basophils # (Auto) 0.0, Nucleated Red Blood Cells % (auto) 0.0, Prothrombin Time 12.9, Prothromb Time International Ratio 0.95, Activated Partial Thromboplast Time 28.3, Anion Gap 5L, Glomerular Filtration Rate > 60.0, Calcium Level 8.5, Total Bilirubin 0.2, Direct Bilirubin < 0.1, Aspartate Amino Transf (AST/SGOT) 10, Alanine Aminotransferase (ALT/SGPT) 23, Alkaline Phosphatase 73, Total Creatine Kinase 56, Creatine Kinase MB < 1.0, Creatine Kinase MB Relative Index 1.79, Troponin I < 0.02, Total Protein 6.8, Albumin 3.5, Albumin/Globulin Ratio 1.1L, Human Chorionic Gonadotropin, Qual NEGATIVE 10/09/20 14:41: CBC/BMP Laboratory Tests 10/09/20 09:22 Assessment/Plan Patient is 44 years old female with past medical history of hypertension, obesity, cardiomyopathy which is resolved presented to the hospital with left-sided headache, left-sided facial numbness and left-sided body paresthesias. Patient stated that around 5-6 days she started having left-sided headache 7 out of 10, associated with left sided facial numbness and paresthesia in her left arm and left leg. Patient states that she has never had these symptoms before. She went to urgent care, CT head was done, it was negative for stroke. On the next day tingling, paresthesias resolved completely, however she continued having left-sided headache, constant, partially alleviated with pain medications. After few days headache completely resolved until today morning. In the morning patient was having the same symptoms as left-sided headache, left- sided body paresthesias, completely resolved after pain medications given in ER. Patient denied any fever, chills, nausea, diarrhea or dysuria. She denied any limbs weakness or difficulties in articulation. In ER patient was found to have elevated systolic blood pressure of 180, labs pertinent for no leukocytosis, normal hemoglobin, negative troponin. CT head and brain MRI negative for stroke or acute bleed. I talked to neurologist Dr Pablo, he recommended to admit patient for observation and hypercoagulable workup. Problems (1) Headache Status: Acute Problem Text: Differential diagnosis includes TIA, complex migraine, hypertensive urgency. Patient has multiple risk factors for stroke including hypertension, obesity, smoking. Patient will be admitted for observation MRA brain negative, CT negative. Unlikely CVA Dr Pablo recommended hypercoagulable workup Telemetry Pain management Aspirin, statin Will check lipid profile (2) Hypertensive urgency Status: Acute Problem Text: Patient stated that she took 20 mg of lisinopril in the morning In emergency blood pressure 180/95 I will add additional 20 mg lisinopril Continue to monitor vital signs (3) Obesity Status: Chronic Problem Text: BMI 47.9 Local Delivery Driver consult in the outpatient settings Complicated care Plan / VTE VTE Prophylaxis Ordered?: Yes DAMON BAR DO Oct 09, 2020 15:44
[2020-10-09] MEDS ORDERED: ACETAMINOPHEN TAB 650MG DOSE (2X325MG) PO PRN (16:00)
[2020-10-09 16:32] LABS: INR 1.01; PROTHROMBIN TIME 13.5 SECONDS (12.5-14.3)
[2020-10-09 16:33] LABS: PARTIAL THROMBOPLASTIN TIME 22.6 SECONDS (24.2-38.5)
[2020-10-09 17:50] VITALS: BP 168/102
[2020-10-09] MEDS: ATORVASTATIN 20 MG TAB PO SCH (18:16)
[2020-10-09 18:59] VITALS: BP 170/89
[2020-10-09 20:06] VITALS: BP 136/82
[2020-10-09] MEDS ORDERED: ENOXAPARIN 40MG/0.4ML SYRINGE (J1650 PER 10MG) SC SCH (21:00)
[2020-10-09 22:00] VITALS: BP 123/68
--- NOTE | 2020-10-09 22:42 | REPVR ---
PROCEDURE INFORMATION: Exam: US Duplex Bilateral Extracranial Arteries Exam date and time: 10/09/2020 10:16 PM Age: 44 years old Clinical indication: Other: Atypical migrane; Additional info: TIA TECHNIQUE: Imaging protocol: Real-time Duplex ultrasound scan of the bilateral carotid and vertebral arteries combining khan scale, color Doppler and spectral waveform analysis. Bilateral exam. COMPARISON: CT Head without contrast 10/06/2020 8:58 PM FINDINGS: Right side: The right ICA/CCA ratio is point .7 with peak velocity of the right internal carotid artery of 70 cm/s. The right vertebral artery is antegrade. The amount of narrowing would be less than 50% Left side: The left ICA/CCA ratio is 0.8 with peak velocity of the left internal carotid artery of 104 cm/s. The left vertebral artery is antegrade. The amount of narrowing would be less than 50% IMPRESSION: No evidence of significant stenosis right or left internal carotid artery. REFERENCES: SRU CRITERIA. The degree of internal carotid artery stenosis is based on criteria defined by the Society of Radiologists in Ultrasound (SRU). Normal is no stenosis. Mild is less than 50% stenosis. Moderate is 50-69% stenosis. Severe is greater than 69% stenosis to near occlusion. Near occlusion is a markedly narrowed lumen. Total occlusion is no detectable patent lumen. Electronically signed by: Osei Cali On 10/09/2020 22:42:54 PM
[2020-10-10 06:00] VITALS: BP 126/78
[2020-10-10 06:20] LABS: HEMATOCRIT 37.9 % (36.0-47.0); HEMOGLOBIN 12.4 g/dl (12.0-15.5); MEAN CORPUSCULAR HEMOGLOBIN 29.8 pg (27.0-33.0); MEAN CORPUSCULAR HGB CONC 32.7 g/dl (32.0-36.5); MEAN CORPUSCULAR VOLUME 91.1 fl (80.0-96.0); PLATELET COUNT, AUTOMATED 285 10^3/uL (150-450); RED BLOOD COUNT 4.16 10^6/uL (4.00-5.40); WHITE BLOOD COUNT 6.5 10^3/uL (4.0-10.0)
[2020-10-10 06:45] LABS: BLOOD UREA NITROGEN 11 MG/DL (7-18); CALCIUM LEVEL 8.8 MG/DL (8.5-10.1); CARBON DIOXIDE LEVEL 25 MEQ/L (21-32); CHLORIDE LEVEL 111 MEQ/L (98-107); CREATININE FOR GFR 0.67 MG/DL (0.55-1.30); GLOMERULAR FILTRATION RATE > 60.0 (>58); GLUCOSE, FASTING 86 MG/DL (70-100); POTASSIUM SERUM 4.1 MEQ/L (3.5-5.1); SODIUM LEVEL 141 MEQ/L (136-145)
[2020-10-10] MEDS: ATORVASTATIN 20 MG TAB PO SCH (10:22)
--- NOTE | 2020-10-10 13:28 | DS.PDOC ---
Discharge Summary General Date of Admission Oct 09, 2020 at 08:01 Date of Discharge 10/10/20 Discharge Summary PROCEDURES PERFORMED DURING STAY: [None]. ADMITTING DIAGNOSES: Headache Hypertensive urgency Obesity Hypertension DISCHARGE DIAGNOSES: Headache Hypertensive urgency Obesity Hypertension COMPLICATIONS/CHIEF COMPLAINT: Atypical Migraine. HISTORY OF PRESENT ILLNESS: Patient is 44 years old female with past medical history of hypertension, obesity, cardiomyopathy which is resolved presented to the hospital with left-sided headache, left-sided facial numbness and left-sided body paresthesias. Patient stated that around 5-6 days she started having left-sided headache 7 out of 10, associated with left sided facial numbness and paresthesia in her left arm and left leg. Patient states that she has never had these symptoms before. She went to urgent care, CT head was done, it was negative for stroke. On the next day tingling, paresthesias resolved completely, however she continued having left-sided headache, constant, partially alleviated with pain medications. After few days headache completely resolved until today morning. In the morning patient was having the same symptoms as left-sided headache, left- sided body paresthesias, completely resolved after pain medications given in ER. Patient denied any fever, chills, nausea, diarrhea or dysuria. She denied any limbs weakness or difficulties in articulation. In ER patient was found to have elevated systolic blood pressure of 180, labs pertinent for no leukocytosis, normal hemoglobin, negative troponin. CT head and brain MRI negative for stroke or acute bleed. I talked to neurologist Dr Pablo, he recommended to admit patient for observation and hypercoagulable workup. HOSPITAL COURSE: During hospital stay the following issues addressed (1) Headache Differential diagnosis includes TIA, complex migraine, hypertensive urgency. Khurram barnett has multiple risk factors for stroke including hypertension, obesity, smoking. Patient will be admitted for observation MRA brain negative, CT negative. Unlikely CVA Dr Pablo recommended hypercoagulable workup Telemetry Pain management Patient received Aspirin, statin Follow-up with neurologist in the outpatient settings (2) Hypertensive urgency Patient stated that she took 20 mg of lisinopril in the morning In emergency blood pressure 180/95 After additional 20 mg lisinopril blood pressure was stabilized (3) Obesity Status: Chronic Problem Text: BMI 47.9 Tipple Supervisor consult in the outpatient settings Complicated care DISCHARGE MEDICATIONS: Please see below. ALLERGIES: Please see below. PHYSICAL EXAMINATION ON DISCHARGE: VITAL SIGNS: Please see below. Objective: GENERAL APPEARANCE: Obese female HEENT: no scleral icterus, no JVD, EOMI CARDIOVASCULAR: S1S2 LUNGS: CTA ABDOMEN: soft & not tender w palpitation MUSCULOSKELETAL: no cyanosis, no swelling INTEGUMENT: no generalized pallor NEUROLOGICAL: cranial nerve function from 2-12 intact intact, follows commands, speech not dysarthric LABORATORY DATA: Please see below. IMAGING: [facility] NAME: JEANRO VALIENTE DATE OF : 1975 AGE: 44 SEX: F REPORT #: [id number] ROOM: ED TECHNOLOGIST: [place] [id number] DOCTOR: JOON JOSE MD Ordered for Date&Time: 10/09/201311 cc: [~ rep ct ivnm] Service Date&Time: 10/09/201311 This report is in Signed status. If this report is in a DRAFT status it has not yet been reviewed by the radiologist for accuracy. Thank you for having your radiology procedures performed at [facility] RADIOLOGY REPORT Date&Time printed: [~ rep prt dt last] [~ rep prt tm last] Page 2 of [address] [id number] RADIOLOGY REPORT This report is in Signed status. If this report is in a DRAFT status it has not yet been reviewed by the radiologist for accuracy. Thank you for having your radiology procedures performed at [facility] RADIOLOGY REPORT Date&Time printed: [~ rep prt dt last] [~ rep prt tm last] Page 1 of 1 INDICATION: parasthesia/ vertigo. COMPARISON: Comparison is made with CT study of the brain from earlier this date.. TECHNIQUE: Axial and sagittal imaging planes are utilized for T1 and T2-weighted scans. Sequences include spin-echo, fast spin echo, FLAIR, and diffusion weighted sequences. FINDINGS: No bony calvarial lesion is seen. Craniocervical junction and upper cervical cord are normal in appearance. There is no MR evidence of significant paranasal sinus disease. No intraorbital abnormality is seen. The lateral, third, and fourth ventricles are normal in size and position. Coughlin-white differentiation pattern is intact above and below the tentorium. There is no evidence of intracranial hemorrhage. No mass, infarction, extra-axial fluid collection or midline shift is seen. No abnormal white matter lesion is seen. IMPRESSION: Negative brain MRI study. <Electronically signed by Lorenzo Guevara > 10/09/20 1357 DD: Akil Guevara MD 10/09/20 1355 DT: SONYA 10/09/20 1357 DS: LUCINDA 10/09/20 1355 10/09/20 1355 [~ rep ct labl] PROGNOSIS: Fair ACTIVITY: [As tolerated]. DIET: Cardiac DISPOSITION: 01 Home, Self-Care. ITEMS TO FOLLOWUP ON ON OUTPATIENT: Follow-up with neurologist in the outpatient settings DISCHARGE CONDITION: [Stable]. TIME SPENT ON DISCHARGE: 30minutes. Vital Signs/I&Os Vital Signs Date Time Temp Pulse Resp B/P (MAP) Pulse Ox O2 Delivery O2 Flow Rate FiO2 10/10/20 06:00 97.3 76 18 126/78 (94) 96 Room Air I&O- Last 24 Hours up to 6 AM 10/10/20 06:00 Intake Total 500 ml Output Total 0 ml Balance 500 ml Laboratory Data Labs 24H Laboratory Tests 2 10/09/20 14:41: Coronavirus (COVID-19)(PCR) NEGATIVE, Influenza Type A (RT-PCR) NEGATIVE, Influenza Type B (RT-PCR) NEGATIVE, Respiratory Syncytial Virus (PCR) NEGATIVE 10/09/20 15:56: Prothrombin Time 13.5, Prothromb Time International Ratio 1.01, Activated Partial Thromboplast Time 22.6L 10/10/20 05:57: Nucleated Red Blood Cells % (auto) 0.0, Anion Gap 5L, Glomerular Filtration Rate > 60.0, Calcium Level 8.8, Magnesium Level 2.0 CBC/BMP Laboratory Tests 10/10/20 05:57 Discharge Medications Scheduled Bimatoprost (Lumigan) 0.01% 2.5ML Drops, 1 DROP OU QHS, (Reported) Lisinopril (Lisinopril) 20 Mg Tab, 20 MG PO QHS, (Reported) Scheduled PRN Ibuprofen (Ibuprofen) 200 Mg Tablet, 400 MG PO QID PRN for PAIN, (Reported) Allergies Coded Allergies: No Known Allergies (Verified , 02/25/12) DAMON BAR DO Oct 10, 2020 13:27
[2020-10-11 11:03] LABS: DRVV SCREEN 35.6 SEC
[2020-10-11 11:06] LABS: PTT LUPUS TYPE ANTICOAG SCREEN 0.9 (0-1.2)
[2020-10-15 13:11] LABS: ANTINUCLEAR ANTIBODIES DIRECT Negative (Negative); CARDIOLIPIN IGA ANTIBODY <9 APL U/mL (0-11); CARDIOLIPIN IGG ANTIBODY <9 GPL U/mL (0-14); CARDIOLIPIN IGM ANTIBODY <9 MPL U/mL (0-12); HOMOCYST(E)INE SERUM 11.1 umol/L (0.0-14.5); PROTEIN C ANTIGEN 131 % (60-150); PROTEIN S ANTIGEN FREE 94 % (57-157); PROTEIN S ANTIGEN TOTAL 89 % (60-150)
== END 2020-10-10 10:50 | disposition home or self-care (01) ==
LOC: M ED 08:00 → M ED INP 08:01 → M MSPAV 17:52
PROVIDERS: ADMIT Internal Medicine; ATTEND Internal Medicine
DX: R51.9 Headache, unspecified (principal); I16.0 Hypertensive urgency; E66.9 Obesity, unspecified; I10 Essential (primary) hypertension; Z79.899 Other long term (current) drug therapy; F17.218 Nicotine dependence, cigarettes, with other nicotine-induced disorders
CPT/HCPCS: 36415; 70450; 70551; 71045; 80048; 80076; 82550; 82553; 83090; 83735; 84484; 84703; 85025; 85027; 85302; 85305; 85306; 85610; 85730; 86038; 86147; 87631; 93005; 93041; 93880; 94760; 96372; 96374; 96375; 99285; J1650; J1885; J2765

== ENCOUNTER → 2020-10-23 | Outpatient (CLI) | payer BC ==
[~2020-10-23] MED LIST changes: +ALPR0.5T3 PO; +ASPI81TA26 PO; +ATOR1TAB21 PO; +BUTA-198 PO; +IBUP-1764 PO; +IMIT50TA PO
--- NOTE | 2020-10-24 10:34 | ECHO ---
DATE OF PROCEDURE: 10/23/2020 Age: 44 Gender: Female Height: 155 cm Weight: 108 kg REFERRING PHYSICIAN: Irwin Barth PA-C INDICATION: Hypertension and dyspnea on exertion. MEASUREMENTS: IVS 0.9 cm LV 5.2 cm LVPW 0.8 cm LA 3.7 cm Aorta 2.8 cm RV 2.9 cm IVC 1.3 cm Mitral E wave velocity 108 Mitral A wave 70 E prime septal 7.7 E prime lateral 10.0 FINDINGS: This study is of good technical quality. The patient is in sinus rhythm. Normal LV size with normal LV systolic function, estimated LVEF approximately 60% to 65%. Right ventricle also appears to have normal contractility. Both atria appear normal. The aortic, mitral, and tricuspid valves were all reasonably well seen and appear normal. No pericardial effusion is noted. Inferior vena cava is normal size and appropriately collapses with inspiration. Aortic root, aortic arch, and visualized segment of the abdominal aorta all appear normal. Doppler interrogation of the aortic valve reveals no stenosis or insufficiency. There is mild mitral and mild tricuspid insufficiency. Calculated pulmonary artery pressure is within normal limits. Mitral inflow pattern and tissue Doppler imaging of the mitral annulus revealed likely normal diastolic function, even though septal tissue Doppler velocity of the mitral annulus is mildly reduced. CONCLUSIONS: 1. Study is of acceptable technical quality, underlying sinus rhythm. 2. Normal left ventricle (LV) size, systolic, and diastolic function. 3. No significant valvular disease. 4. Normal central venous pressure and likely normal pulmonary artery pressure. 5. Essentially normal echocardiogram. [facility]
== END ==
LOC: M CARPUL 08:58
PROVIDERS: ATTEND Physician Assistant
DX: I10 Essential (primary) hypertension (principal)

== ENCOUNTER 2020-10-26 18:30 | Emergency (ER) | payer BC ==
[~2020-10-26] VITALS: Ht 154.9 cm; Wt 109.1 kg
[~2020-10-26 18:30] MED LIST changes: -ALPR0.5T3 PO; -ASPI81TA26 PO; -ATOR1TAB21 PO; -BUTA-198 PO; -IMIT50TA PO
[2020-10-26] MEDS ORDERED: BUTA-198 PO (19:01)
[2020-10-26] MEDS ORDERED: ALPR0.5T3 PO (19:01)
[2020-10-26] MEDS ORDERED: ASPI81TA26 PO (19:01)
[2020-10-26] MEDS ORDERED: ATOR1TAB21 PO (19:01)
[2020-10-26] MEDS ORDERED: diphenhydrAMINE 50MG/ML VIAL (J1200) IV STA (19:16)
[2020-10-26] MEDS ORDERED: PROCHLORPERAZINE 10MG/2ML VIAL (J0780 PER 1) IV STA (19:16)
[2020-10-26] MEDS ORDERED: KETOROLAC 30 MG/ML 1ML VIAL IV ONE (19:20)
[2020-10-26] MEDS ORDERED: NS 1,000 ML IV ONE (19:20)
--- NOTE | 2020-10-26 19:38 | REPVR ---
PROCEDURE INFORMATION: Exam: CT Head Without Contrast Exam date and time: 10/26/2020 6:40 PM Age: 44 years old Clinical indication: Weakness, facial; Additional info: Facial numbness TECHNIQUE: Imaging protocol: Computed tomography of the head without contrast. Radiation optimization: All CT scans at this facility use at least one of these dose optimization techniques: automated exposure control; mA and/or kV adjustment per patient size (includes targeted exams where dose is matched to clinical indication); or iterative reconstruction. COMPARISON: CT Head without contrast 10/09/2020 8:36 AM FINDINGS: Brain: No acute intracerebral abnormality or injury. No acute infarct or intracerebral bleed. Normal brain. No significant interval change since the previous head CT from 10/09/2020. [place] Stroke Program Early CT Score (ASPECTS score) = 10. Cerebral ventricles: No ventriculomegaly. Bones/joints: Unremarkable. No acute fracture. Paranasal sinuses: Mild mucosal thickening is present in the right sphenoid sinus. Mastoid air cells: Visualized mastoid air cells are well aerated. Soft tissues: Unremarkable. IMPRESSION: 1. No acute intracerebral abnormality or injury. No acute infarct or intracerebral bleed. 2. Normal brain. No significant interval change since the previous head CT from 10/09/2020. 3. [place] Stroke Program Early CT Score (ASPECTS score) = 10. 4. Mild mucosal thickening is present in the right sphenoid sinus. Electronically signed by: Freddy Del Toro On 10/26/2020 19:38:08 PM
[2020-10-26] MEDS ORDERED: IMIT50TA PO (21:06)
[2020-10-26 21:37] VITALS: BP 136/77
== END 2020-10-26 21:39 | disposition home or self-care (01) ==
LOC: M ED 18:30
DX: G43.909 Migraine, unspecified, not intractable, without status migrainosus (principal); I10 Essential (primary) hypertension; Z79.899 Other long term (current) drug therapy; Z79.82 Long term (current) use of aspirin
CPT/HCPCS: 70450; 96361; 96374; 96375; 99284; J0780; J1200; J1885

== ENCOUNTER → 2020-10-31 | Outpatient (REF) | payer BC ==
[~2020-10-31] MED LIST changes: +ALPR0.5T3 PO; +ASPI81TA26 PO; +ATOR1TAB21 PO; +BUTA-198 PO; +IMIT50TA PO; +KETO10TAB; +NEXI20CA PO; +RIME75TA PO; +VERA40TA PO
== END ==
LOC: M LAB REF 16:50
PROVIDERS: ATTEND Physician Assistant
DX: R10.32 Left lower quadrant pain (principal)

== ENCOUNTER 2020-11-01 09:51 | Emergency (ER) | payer BC ==
[~2020-11-01] VITALS: Ht 154.9 cm; Wt 112.8 kg
[~2020-11-01 09:51] MED LIST changes: -KETO10TAB; -NEXI20CA PO; -RIME75TA PO; -VERA40TA PO
[2020-11-01] MEDS ORDERED: NEXI20CA PO (10:03)
[2020-11-01] MEDS ORDERED: RIME75TA PO (10:03)
[2020-11-01] MEDS ORDERED: NS 1,000 ML IV ONE (10:40)
--- NOTE | 2020-11-01 11:04 | REP ---
INDICATION: l cva/flank pain, also LLQ pain COMPARISON: 03/27/2012 TECHNIQUE: Axial noncontrast images from the lung bases to the pubic symphysis with coronal and sagittal reformations. This CT examination was performed using the following dose reduction techniques: Automated exposure control, adjustment of mA and/or kv according to the patient's size, and use of iterative reconstruction technique. FINDINGS: Trace right basilar atelectasis suggested. Liver, spleen, pancreas, gallbladder, bilateral adrenal glands and kidneys are normal. No evidence for perinephric stranding, hydroureteronephrosis, intrarenal or obstructing ureteral calculi. The enteric system is unremarkable and without obstruction or acute inflammatory process. Normal terminal ileum and appendix identified in the right lower quadrant. Pelvis demonstrates normal bladder and age-appropriate uterus/adnexa. Calcifications in the pelvis consistent with phleboliths. No ascites. No free air. No adenopathy. No focal inflammatory stranding. Abdominal aorta without aneurysm. Musculoskeletal structures are intact and without acute osseous abnormality. IMPRESSION: No acute abdominopelvic pathology appreciated. Normal urinary tract system. No ascites, focal inflammatory stranding, adenopathy, or free air. <Electronically signed by Murali Bajwa > 11/01/20 1100
[2020-11-01 12:14] LABS: BASO % 0.2 % (0.0-1.0); EOS # 0.2 10^3/uL (0.0-0.5); EOS % 1.5 % (0.0-3.0); HEMATOCRIT 41.2 % (36.0-47.0); HEMOGLOBIN 13.1 g/dl (12.0-15.5); LYMPH % 19.1 % (24.0-44.0); MEAN CORPUSCULAR HGB CONC 31.8 g/dl (32.0-36.5); MEAN CORPUSCULAR VOLUME 94.5 fl (80.0-96.0); MONO # 0.6 10^3/uL (0.0-0.8); NEUTROPHILS # 7.6 10^3/uL (1.5-8.5); NEUTROPHILS % 72.9 % (36.0-66.0); PLATELET COUNT, AUTOMATED 313 10^3/uL (150-450); RED BLOOD COUNT 4.36 10^6/uL (4.00-5.40); WHITE BLOOD COUNT 10.4 10^3/uL (4.0-10.0)
[2020-11-01 12:45] LABS: ALBUMIN 3.5 GM/DL (3.2-5.2); ALT/SGPT 24 U/L (12-78); BILIRUBIN,DIRECT < 0.1 MG/DL (0.0-0.2); BILIRUBIN,TOTAL 0.2 MG/DL (0.2-1.0); LIPASE 121 U/L (73-393); TOTAL PROTEIN 6.7 GM/DL (6.4-8.2)
[2020-11-01 13:05] VITALS: BP 147/88
== END 2020-11-01 13:07 | disposition home or self-care (01) ==
LOC: M ED 09:51
DX: R10.9 Unspecified abdominal pain (principal); R30.0 Dysuria; I11.9 Hypertensive heart disease without heart failure; K21.9 Gastro-esophageal reflux disease without esophagitis; F17.200 Nicotine dependence, unspecified, uncomplicated; J45.909 Unspecified asthma, uncomplicated; Z79.82 Long term (current) use of aspirin; Z79.899 Other long term (current) drug therapy

== ENCOUNTER 2020-11-01 22:05 | Emergency (ER) | payer BC ==
[~2020-11-01] VITALS: Ht 154.9 cm; Wt 112.9 kg
[~2020-11-01 22:05] MED LIST changes: +NEXI20CA PO; +RIME75TA PO
[2020-11-01] MEDS ORDERED: KETOROLAC 30 MG/ML 1ML VIAL IV ONE (23:00)
--- NOTE | 2020-11-02 00:09 | REPVR ---
PROCEDURE INFORMATION: Exam: US Retroperitoneal; Complete; Kidneys and Bladder Exam date and time: 11/01/2020 11:51 PM Age: 44 years old Clinical indication: Abdominal pain; Flank; Other: Bilat, left>right; Additional info: R/O left hn/hu TECHNIQUE: Imaging protocol: Real-time ultrasound of the retroperitoneum with image documentation. Complete exam focused on the kidneys and bladder. COMPARISON: CT ABD PELVIS W/O CONTRAST 11/01/2020 10:49 AM FINDINGS: Right kidney: 12 cm in length. No stones. No hydronephrosis. Left kidney: 11.1 cm in length. No stones. No hydronephrosis. Urinary bladder: Grossly unremarkable. IMPRESSION: No acute sonographic findings. Electronically signed by: Irwin Juarez On 11/02/2020 00:09:39 AM
[2020-11-02] MEDS ORDERED: NORCO 5/325MG TABLET (BULK FOR ED) PO ONE (01:10)
[2020-11-02 01:29] VITALS: BP 132/72
== END 2020-11-02 01:34 | disposition home or self-care (01) ==
LOC: M ED 22:05
DX: S76.211A Strain of adductor muscle, fascia and tendon of right thigh, initial encounter (principal); I10 Essential (primary) hypertension; Y92.9 Unspecified place or not applicable; Y93.9 Activity, unspecified; Y99.9 Unspecified external cause status; Z87.442 Personal history of urinary calculi
CPT/HCPCS: 76775; 96374; 99284; J1885

== ENCOUNTER 2020-11-05 09:20 | Emergency (ER) | payer BC ==
[~2020-11-05] VITALS: Ht 154.9 cm; Wt 109.1 kg
[2020-11-05] MEDS ORDERED: VERA40TA PO (09:30)
[2020-11-05] MEDS ORDERED: KETO10TAB (09:30)
[2020-11-05 10:00] VITALS: BP 125/69
[2020-11-05] MEDS ORDERED: METOCLOPRAMIDE INJ 10MG/2ML VIAL (J2765 PER 1) IV ONE (10:05)
[2020-11-05] MEDS ORDERED: KETOROLAC 30 MG/ML 1ML VIAL IV ONE (10:05)
== END 2020-11-05 11:23 | disposition home or self-care (01) ==
LOC: M ED 09:20
DX: G43.109 Migraine with aura, not intractable, without status migrainosus (principal); E66.9 Obesity, unspecified; F41.9 Anxiety disorder, unspecified; Z87.442 Personal history of urinary calculi; Z79.82 Long term (current) use of aspirin; Z79.899 Other long term (current) drug therapy
CPT/HCPCS: 96374; 96375; 99284; J1885; J2765

== ENCOUNTER → 2020-12-12 | Outpatient (CLI) | payer BC ==
[~2020-12-12] MED LIST changes: +KETO10TAB; +VERA40TA PO
--- NOTE | 2020-12-12 11:29 | REPMRS ---
Patient History The patient states she has not had a clinical breast exam in over a year. No known family history of cancer. Patient states no breast complaints today. Patient has signed MRS History Sheet. Digital Woman Screen Mammo: December 12, 2020 - Exam #: [id number] Bilateral CC and MLO view(s) were taken. Technologist: Kathe France, [employer] Prior study comparison: April 15, 2019, digital mammo diagnostic bilateral, performed at [facility]. July 29, 2017, left breast digital mammo diagnostic unilateral, performed at [facility]. FINDINGS: There are scattered fibroglandular densities. Screening. Digital screening (2D) mammography was performed bilaterally in the CC and MLO projections. Additionally, breast tomosynthesis (3D mammography) was performed bilaterally in the CC and MLO projections. Todays exam was compared to the prior exams. By history, the patient has no complaints of a palpable breast abnormality or other significant breast complaints. The breasts are unchanged in size and shape. There are no amalia-soft tissue densities or spiculated masses. There is no internal architectural distortion. Once again, stable benign appearing calcifications are seen.There are no suspicious amalia-calcific clusters. Skin thickening or nipple retraction is not present. IMPRESSION: BI-RADS Category 2- Benign Findings. There is no evidence of malignant alteration of the breasts. Followup examination recommended in one year. The Volpara volumetric breast density category is B, there are scattered areas of fibroglandular density. This mammogram was read with the assistance of Kiwi,an FDA approved computer aided detection system for mammography. The lifetime Tyrer-Cuzick score is 12 % Negative x-ray reports should not delay surgical consultation if a dominant or clinically suspicious mass is present. Not all breast cancers can be identified by mammography. Therefore, we recommend that you continue to perform regular breast self-examination and physical examination and then promptly contact your physician of any concerns or changes. Adenosis and dense breasts may obscure an underlying neoplasm. Assessment: BI-RADS/ACR category 2 mammogram. Benign Findings. Recommendation Routine screening mammogram of both breasts in 1 year. Electronically Signed By: Kael Rene DO 12/12/20 1126
== END ==
LOC: M WHC 07:42
PROVIDERS: ATTEND Physician Assistant
DX: Z12.31 Encounter for screening mammogram for malignant neoplasm of breast (principal); R92.1 Mammographic calcification found on diagnostic imaging of breast

== ENCOUNTER → 2021-03-02 | Outpatient (CLI) | payer BC ==
[2021-03-02 09:16] LABS: BASO % 0.5 % (0.0-1.0); EOS # 0.1 10^3/uL (0.0-0.5); EOS % 2.3 % (0.0-3.0); HEMATOCRIT 39.5 % (36.0-47.0); HEMOGLOBIN 13.3 g/dl (12.0-15.5); LYMPH # 2.4 10^3/uL (1.5-5.0); LYMPH % 39.4 % (24.0-44.0); MEAN CORPUSCULAR HEMOGLOBIN 30.7 pg (27.0-33.0); MEAN CORPUSCULAR HGB CONC 33.7 g/dl (32.0-36.5); MEAN CORPUSCULAR VOLUME 91.2 fl (80.0-96.0); MONO # 0.3 10^3/uL (0.0-0.8); MONO % 4.9 % (2.0-8.0); NEUTROPHILS # 3.2 10^3/uL (1.5-8.5); NEUTROPHILS % 52.6 % (36.0-66.0); PLATELET COUNT, AUTOMATED 332 10^3/uL (150-450); RED BLOOD COUNT 4.33 10^6/uL (4.00-5.40); WHITE BLOOD COUNT 6.1 10^3/uL (4.0-10.0)
[2021-03-02 09:34] LABS: ALBUMIN 3.5 GM/DL (3.2-5.2); ALT/SGPT 22 U/L (12-78); BILIRUBIN,TOTAL 0.4 MG/DL (0.2-1.0); BLOOD UREA NITROGEN 9 MG/DL (7-18); CALCIUM LEVEL 8.7 MG/DL (8.5-10.1); CARBON DIOXIDE LEVEL 29 MEQ/L (21-32); CHLORIDE LEVEL 112 MEQ/L (98-107); CHOLESTEROL LEVEL 103 MG/DL (<200); CHOLESTEROL RISK RATIO 2.641 (<5); CREATININE FOR GFR 0.69 MG/DL (0.55-1.30); FREE T4 0.99 NG/DL (0.76-1.46); GLOMERULAR FILTRATION RATE > 60.0 (>58); GLUCOSE, FASTING 83 MG/DL (70-100); HDL CHOLESTEROL 39 MG/DL (>40); LDL CHOLESTEROL 42 MG/DL (<100); NON-HDL-C 64 MG/DL; POTASSIUM SERUM 4.4 MEQ/L (3.5-5.1); SODIUM LEVEL 143 MEQ/L (136-145); TOTAL PROTEIN 6.7 GM/DL (6.4-8.2); TRIGLYCERIDES LEVEL 112 MG/DL (<150)
== END ==
LOC: M LAB 08:22
PROVIDERS: ATTEND Family Medicine
DX: J45.20 Mild intermittent asthma, uncomplicated (principal); I10 Essential (primary) hypertension; E78.5 Hyperlipidemia, unspecified

== ENCOUNTER → 2021-04-20 | Outpatient (CLI) | payer BC ==
[2021-04-20 10:42] LABS: HEMOGLOBIN A1c 5.9 %
[2021-04-20 10:44] LABS: ALBUMIN 3.6 GM/DL (3.2-5.2); ALT/SGPT 20 U/L (12-78); BILIRUBIN,TOTAL 0.4 MG/DL (0.2-1.0); BLOOD UREA NITROGEN 13 MG/DL (7-18); CALCIUM LEVEL 9.1 MG/DL (8.5-10.1); CARBON DIOXIDE LEVEL 28 MEQ/L (21-32); CHLORIDE LEVEL 105 MEQ/L (98-107); CHOLESTEROL LEVEL 107 MG/DL (<200); CHOLESTEROL RISK RATIO 2.609 (<5); CREATININE FOR GFR 0.63 MG/DL (0.55-1.30); GLOMERULAR FILTRATION RATE > 60.0 (>58); GLUCOSE, FASTING 80 MG/DL (70-100); HDL CHOLESTEROL 41 MG/DL (>40); LDL CHOLESTEROL 48 MG/DL (<100); NON-HDL-C 66 MG/DL; SODIUM LEVEL 140 MEQ/L (136-145); TOTAL PROTEIN 6.9 GM/DL (6.4-8.2); TRIGLYCERIDES LEVEL 90 MG/DL (<150)
== END ==
LOC: M LAB 08:26
PROVIDERS: ATTEND Family Medicine
DX: E88.81 Metabolic syndrome and other insulin resistance (principal)

== ENCOUNTER 2021-06-01 13:04 | Emergency (ER) | payer BC ==
[~2021-06-01] VITALS: Ht 154.9 cm; Wt 106.8 kg
[2021-06-01 13:04] VITALS: BP 153/89
--- OUTSIDE RECORDS SUMMARY | 2021-06-01 13:11 | CCD | Continuity of Care Document ---
Author Author Rossi MATHEWS D.O. Organization Unknown Address [address] [place] [address] Phone [phone] Care Team Providers Care Slitter Scorer Name Role Phone Leena Mathews D.O. AUTM Dominic Thornton MD AUTM [phone] Niharika Quiles NP AUTM [phone] [facility] AUTM [phone] Theodore Dorsey M.D. AUTM [phone] Problems Active Problems Provider Date Essential hypertension VADIM Cabrera Onset: 04/12/2019 Mild intermittent asthma VADIM Cabrera Onset: 04/12/20 19 Low tension glaucoma VADIM Cabrera Onset: 04/12/2019 Hyperlipidemia Leena Mathews D.O. Onset: 2020 Social History Type Date Description Comments Sex Unknown Tobacco Use Start: Unknown Light tobacco smoker (10 or fewe r cigarettes/day) Smoking Status Reviewed: 05/06/21 Light tobacco smoker (10 or fewer cigarettes/day) ETOH Use Denies alcohol use Tobacco Use Start: Unknown Light tobacco smoker (10 or fewe r cigarettes/day) Recreational Drug Use Denies Drug Use Exercise Type/Frequency Walks 3 times a week Sun Exposure Uses sunscreen Seat Belt/Car Seat Always uses seat belt Allergies, Adverse Reactions, Alerts Description No Known Drug Allergies Medications Active Medications SIG Qnty Indications Ordering Provide r Date Vitamin B-12 Natural 500mcg Tablets 1 by mouth every day 90tabs Leena Mathews D.O. 05/06/2021 Naproxen 500mg Tablets Take One Tablet By Mouth Twice A Day With Food as Needed 180tabs Jun LiOSolomon 03/24/2021 Aspirin 81mg Chewtabs 1 by mouth every day 90units G43.409 Jun TenaOSolomon 03/12 Metformin HCL ER 500mg Tablets ER 24HR 2 tablets by mouth twice daily with meals 180tabs E88.81 Jun TenaOSolomon 02/07/2021 Verapamil HCL 40mg Tablets 1/2 tablets by mouth every 12 hours 90tabs G43.409 Jun TenaOSolomon 12/03/2020 Esomeprazole Magnesium 20mg Capsul es DR 1 by mouth every day 90caps Jun TenaOSolomon Lisinopril 40mg Tablets 1 by mouth every day 90tabs I10 Jun TenaOSolomon 11/19 Nurtec 75mg Tablets Dispers one tablet by mouth once every 24 hours as needed 8tabs Jun MaysOSolomon 10/31/2020 Atorvastatin Calcium 20mg Tablets 1 by mouth every night 90tabs G43.409 Jun TenaOSolomon Alprazolam 0.5mg Tablets take one tablet by mouth every 12 hours as needed istop: [id number] 45tabs Jun SilvaOSolomon 10/11/2020 Albuterol Sulfate HFA 108(90Base) mcg/Act Aerosol 1-2 puffs every 4-6 hours as needed for shortness of breath Unknown Lumigan 0.01% Solution instill 1 drop in each eye once at night Unknown 0 Multi Vitamin Daily Tablets 1 by mouth every day Unknown History Medications Hydrochlorothiazide 12.5mg Capsule s 1 by mouth as needed for swelling 90caps R60.0 Jun HernandezO. 02/07/2021 - 03/12/2021 Medications Administered in Office Medication SIG Qnty Indications Ordering Provider Date Injection Ketorolac Tromethamine Per 15 MG (Toradol) Injection VADIM Wilson 10/31/2020 Injection Ketorolac Tromethamine Per 15 MG (Toradol) Injection VADIM Wilson 09/19/2020 Immunizations Description No Information Available Vital Signs Date Vital Result Comment 05/06/2021 8:26am BP Systolic 126 mmHg BP Diastolic 76 mmHg Height 60 inches 5'0" Weight 237.12 lb BMI (Body Mass Index) 46.3 kg/m2 Heart Rate 93 /min Respiratory Rate 18 /min Body Temperature 98.9 F O2 % BldC Oximetry 98 % [place] Body Weight 100 lb 03/12/2021 8:14am BP Systolic 132 mmHg BP Diastolic 88 mmHg Height 60 inches 5'0" Weight 244.00 lb BMI (Body Mass Index) 47.6 kg/m2 Heart Rate 90 /min Respiratory Rate 18 /min Body Temperature 98.6 F O2 % BldC Oximetry 96 % [place] Body Weight 100 lb Results Test Acquired Date Facility Test Result H/L Range Note Laboratory test finding 04/20/[address] [id number] [phone] Insulin Level 0.8 uIU/mL Low 2.6-24.9 1 Hemoglobin A1c 04/20/2021 [facility] [address] [address] [place] [address] [phone] Hemoglobin A1c 5.9 % Normal 2 Estimated Average Glucose 123 mg/dL High 60-110 Comprehensive Metabolic Profil 04/20/[address] [id number] [phone] Glucose, Fasting 80 mg/dL Normal 70-100 Blood Urea Nitrogen 13 mg/dL Normal 7-18 Creatinine For GFR 0.63 mg/dL Normal 0.55-1.30 Glomerular Filtration Rate > 60.0 Normal >58 3 Sodium Level 140 mEq/L Normal 136-145 Potassium Serum 4.0 mEq/L Normal 3.5-5.1 Chloride Level 105 mEq/L Normal 98-107 Carbon Dioxide Level 28 mEq/L Normal 21-32 Anion Gap 7 mEq/L Low 8-16 Calcium Level 9.1 mg/dL Normal 8.5-10.1 Ast/Sgot 12 U/L Normal 7-37 Alt/SGPT 20 U/L Normal 12-78 Alkaline Phosphatase 82 U/L Normal 45-117 Bilirubin,Total 0.4 mg/dL Normal 0.2-1.0 Total Protein 6.9 GM/DL Normal 6.4-8.2 Albumin 3.6 GM/DL Normal 3.2-5.2 Albumin/Globulin Ratio 1.1 Low 1.2-2.2 Lipid Panel 04/20/2021 [facility] [address] [address] [place] [phone] Triglycerides Level 90 mg/dL Normal <150 Cholesterol Level 107 mg/dL Normal <200 HDL Cholesterol 41 mg/dL Normal >40 LDL Cholesterol 48 mg/dL Normal <100 Non-HDL-C 66 mg/dL Normal Cholesterol Risk Ratio 2.609 Normal <5 Comprehensive Metabolic Profil 03/02/[address] [address] [phone] Glucose, Fasting 83 mg/dL Normal 70-100 Blood Urea Nitrogen 9 mg/dL Normal 7-18 Creatinine For GFR 0.69 mg/dL Normal 0.55-1.30 Glomerular Filtration Rate > 60.0 Normal >58 4 Sodium Level 143 mEq/L Normal 136-145 Potassium Serum 4.4 mEq/L Normal 3.5-5.1 Chloride Level 112 mEq/L High 98-107 Carbon Dioxide Level 29 mEq/L Normal 21-32 Anion Gap 2 mEq/L Low 8-16 Calcium Level 8.7 mg/dL Normal 8.5-10.1 Ast/Sgot 11 U/L Normal 7-37 Alt/SGPT 22 U/L Normal 12-78 Alkaline Phosphatase 83 U/L Normal 45-117 Bilirubin,Total 0.4 mg/dL Normal 0.2-1.0 Total Protein 6.7 GM/DL Normal 6.4-8.2 Albumin 3.5 GM/DL Normal 3.2-5.2 Albumin/Globulin Ratio 1.1 Low 1.2-2.2 CBC With Differential 03/02/[address] [address] [phone] White Blood Count 6.1 10 Normal 4.0-10.0 Red Blood Count 4.33 10 Normal 4.00-5.40 Hemoglobin 13.3 g/dL Normal 12.0-15.5 Hematocrit 39.5 % Normal 36.0-47.0 Mean Corpuscular Volume 91.2 fl Normal 80.0-96.0 Mean Corpuscular Hemoglobin 30.7 pg Normal 27.0-33.0 Mean Corpuscular HGB Conc 33.7 g/dL Normal 32.0-36.5 Red Cell Distribution Width 13.4 % Normal 11.5-14.5 Platelet Count, Automated 332 10 Normal 150-450 Neutrophils % 52.6 % Normal 36.0-66.0 Lymph % 39.4 % Normal 24.0-44.0 Scurry % 4.9 % Normal 2.0-8.0 Eos % 2.3 % Normal 0.0-3.0 Baso % 0.5 % Normal 0.0-1.0 Immature Granulocyte % 0.3 % Normal 0-3.0 Nucleated Red Blood Cell % 0.0 % Normal 0-0 Neutrophils # 3.2 10 Normal 1.5-8.5 Lymph # 2.4 10 Normal 1.5-5.0 Scurry # 0.3 10 Normal 0.0-0.8 Eos # 0.1 10 Normal 0.0-0.5 Baso # 0.0 10 Normal 0.0-0.2 Lipid Panel 03/02/[address] [address] [phone] Triglycerides Level 112 mg/dL Normal <150 Cholesterol Level 103 mg/dL Normal <200 HDL Cholesterol 39 mg/dL Low >40 LDL Cholesterol 42 mg/dL Normal <100 Non-HDL-C 64 mg/dL Normal Cholesterol Risk Ratio 2.641 Normal <5 FT4&TSH Panel 03/02/[address] [address] [phone] Thyroid Stimulating Hormone 2.040 uIU/ML Normal 0. 358-3.740 Free T4 0.99 ng/dL Normal 0.76-1.46 1 Performed at: [facility] [address] [id number] [employer] Designer: Angeles Torres MD, Phone: [phone] REFERENCE RANGES: <=5.6% NORMAL 5.7-6.4% SUGGESTS IMPAIRED GLUCOSE META BOLISM/PREDIABETIC >= 6.5% ABNORMAL 3 Units are mL/min/1.73 m2 Chronic Kidney Disease Staging per NKF: Stage I & II GFR >=60 Normal to Mildly Decreased Stage III GFR 30-59 Moderately Decreased Stage IV GFR 15-29 Severely Decreased Stage V GFR <15 Very Little GFR Left ESRD GFR <15 on [employer] 4 Units are mL/min/1.73 m2 Chronic Kidney Disease Staging per NKF: Stage I & II GFR >=60 Normal to Mildly Decreased Stage III GFR 30-59 Moderately Decreased Stage IV GFR 15-29 Severely Decreased Stage V GFR <15 Very Little GFR Left ESRD GFR <15 on [employer] Procedures Date Code Description Status 05/06/2021 23384 Office/Outpatient Established Mo d MDM 30-39 Min Completed 03/12/2021 62650 Office/Outpatient Established Mo d MDM 30-39 Min Completed 02/07/2021 71448 Preventive Visit Est 40-64 Yrs C ompleted 02/07/2021 56841 Office/Outpatient Established Lo w MDM 20-29 Min Completed 12/12/2020 [id number] Mammogram Completed 12/03/2020 97575 Office/Outpatient Established Mo d MDM 30-39 Min Completed 11/19/2020 69700 Office/Outpatient Established Mo d MDM 30-39 Min Completed Medical Devices Description No Information Available Encounters Type Date Location Provider Dx Diagnosis Office Visit 05/06/2021 8:30a [facility] Leena Mathews, D.O. E88.81 Metabolic syndrome I10 Essential (primary) hyperten sergio J45.20 Mild intermittent asthma, un complicated F17.210 Nicotine dependence, cigaret [place], uncomplicated E78.5 Hyperlipidemia, unspecified H40.1231 Low-tension glaucoma, bilate ral, mild stage Z79.899 Other longwall foreman (current) dr heath therapy R60.0 Localized edema F41.1 Generalized anxiety disorder K21.9 Gastro-esophageal reflux dis ease without esophagitis Office Visit 03/12/2021 8:20a [facility] Leena Mathews D.O. E88.81 Metabolic syndrome I10 Essential (primary) hyperten sergio J45.20 Mild intermittent asthma, un complicated F17.210 Nicotine dependence, cigaret [place], uncomplicated E78.5 Hyperlipidemia, unspecified Office Visit 02/07/2021 9:40a [facility] Leena Mathews D.OSolomon 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 Low-tension glaucoma, bilate ral, mild stage Z79.899 Other care home (current) dr kumar therapy E78.5 Hyperlipidemia, unspecified R60.0 Localized edema E88.81 Metabolic syndrome Office Visit 12/03/2020 10:20a [facility] VADIM Cabrera I10 Essential (primary) hyperten sergio G43.409 Hemiplegic migraine, not int ractable, w/o status migrainosus J45.20 Mild intermittent asthma, un complicated F41.1 Generalized anxiety disorder Z12.31 Encntr screen mammogram for malignant neoplasm of breast Office Visit 11/19/2020 1:00p [facility] VADIM Cabrera I10 Essential (primary) hyperten sergio G43.409 Hemiplegic migraine, not int ractable, 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 05/06/2021 I10 Essential (primary) hypertension Leena Mathews, D.O. 05/06/2021 J45.20 Mild intermittent asthma, uncomp licated Leena Mathews, D.O. 05/06/2021 F17.210 Nicotine dependence, cigarettes, uncomplicated Leena Yarbrough, D.O. 05/06/2021 E78.5 Hyperlipidemia, unspecified Leena Mathews, D.O. 05/06/2021 H40.1231 Low-tension glaucoma, bilateral, mild stage Leena Yarbrough D.O. 05/06/2021 Z79.899 Other longwall foreman (current) drug t herapy Leena Danny-Zenon, D.O. 05/06/2021 R60.0 Localized edema Leena Danny-Moe rber, D.O. 05/06/2021 F41.1 Generalized anxiety disorder Yeny l Danny-Zenon, D.O. 05/06/2021 K21.9 Gastro-esophageal reflux disease without esophagitis Leena Danny-Zenon, D.O. 03/12/2021 E88.81 Metabolic syndrome Leena Danny -Zenon, D.O. 03/12/2021 I10 Essential (primary) hypertension Leena Danny-Zenon, D.O. 03/12/2021 J45.20 Mild intermittent asthma, uncomp licated Leena Danny-Zenon, D.O. 03/12/2021 F17.210 Nicotine dependence, cigarettes, uncomplicated Leena Danny- Zenon, D.O. 03/12/2021 E78.5 Hyperlipidemia, unspecified Leena Danny-Zenon, D.O. 02/07/2021 Z00.01 Encounter for genera l adult medical examination with abnormal findings Leena Buttseano-Zenon, D.O. 02/07/2021 I10 Essential (primary) hypertension Leena Danny-Zenon, D.O. 02/07/2021 J45.20 Mild intermittent asthma, uncomp licated Leena Danny-Zenon, D.O. 02/07/2021 F17.210 Nicotine dependence, cigarettes, uncomplicated Leena Danny- Zenon, D.O. 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 02/07/2021 Z79.899 Other care home (current) drug t herapy Leena Danny-Zenon, D.O. 02/07/2021 E78.5 Hyperlipidemia, unspecified Leena Danny-Zenon, D.O. 02/07/2021 R60.0 Localized edema Leena Danny-Moe rber, D.O. 02/07/2021 E88.81 Metabolic syndrome Leena Danny -Zenon, D.O. 12/03/2020 I10 Essential (primary) hypertension VADIM Cabrera 12/03/2020 G43.409 Hemiplegic migraine, not intractable, without status migrainosus VADIM Cabrera 12/03/2020 J45.20 Mild intermittent asthma, uncomp licated VADIM Cabrera 12/03/2020 F41.1 Generalized anxiety disorder VADIM Mcgovern 12/03/2020 Z12.31 Encounter for screen ing mammogram for malignant neoplasm of breast VADIM Cabrera 11/19/2020 I10 Essential (primary) hypertension VADIM Cabrera 11/19/2020 G43.409 Hemiplegic migraine, not intractable, without status migrainosus VADIM Cabrera 11/19/2020 J45.20 Mild intermittent asthma, uncomp licated VADIM Cabrera 11/19/2020 F41.1 Generalized anxiety disorder VADIM Mcgovern Plan of Treatment Future Appointment(s):* 08/06/2021 8:30 am - VADIM Cabrera at [facility] Functional Status Description No Information Available Mental Status Description No Information Available Referrals Refer to Reason for Referral Status Appt Date Caleb Rowland MD This is a 45 year old female with breakthrough reflux despite daily nexium. She is making diet changes and losing weight but the reflux persists. Please evaluate and treat. Created [address] [place] [address] [phone]
--- OUTSIDE RECORDS SUMMARY | 2021-06-01 13:11 | CCD | Continuity of Care Document ---
Author Author Rossi EDWARDS Organization Unknown Address [address] [place] [address] Phone [phone] Care Team Providers Care Shoe Laster Name Role Phone [facility] AUTM [phone] Tommy Reyes MD AUTM [phone] Problems Active Problems Provider Date Low back pain Nabil Og, P.ASolomon Onset: 2010 Social History Type Date Description Comments Sex Unknown ETOH Use Denies alcohol use Tobacco Use Start: Unknown Patient is a current smoker, smo kes every day 1/2 ppd Allergies, Adverse Reactions, Alerts Description No Known Drug Allergies Medications Active Medications SIG Qnty Indications Ordering Provide r Date Astelin 137mcg/[place] Solution 2 spray twice a day as needed 1units Yan Atkinson JR. 08/28/2014 Lisinopril 20mg Tablets 1 po qd 90tabs Unknown Immunizations Description No Information Available Vital Signs Date Vital Result Comment 08/28/2014 12:36pm BP Systolic 136 mmHg standing BP Diastolic 92 mmHg standing Heart Rate 92 /min 08/28/2014 12:31pm BP Systolic 138 mmHg laying BP Diastolic 87 mmHg laying Heart Rate 83 /min Results Description No Information Available Procedures Description No Information Available Medical Devices Description No Information Available Encounters Description No Information Available Assessments Date Code Description Provider 03/18/2021 Z20.828 Contact with and (baeza spected) exposure to other viral communicable diseases VADIM Beck Plan of Treatment No Information Available Functional Status Description No Information Available Mental Status Description No Information Available Referrals Description No Information Available
--- OUTSIDE RECORDS SUMMARY | 2021-06-01 13:11 | CCD ---
Continuity of Care Document (CCD) Created on: 03/13/2021 Holger Rossi External Reference #: [id number] : 1975 Sex: Female Author Author Rossi MATHEWS D.O. Organization Unknown Address [address] [place] [address] Phone [phone] Care Team Providers Care Graduation Coach Name Role Phone Leena Mathews D.O. AUTM Dominic Thornton MD AUTM [phone] Niharika Quiles NP AUTM [phone] [facility] AUTM [phone] Theodore Dorsey M.D. AUTM [phone] Problems Active Problems Provider Date Essential hypertension VADIM Cabrera Onset: 04/12/2019 Mild intermittent asthma VADIM Cabrera Onset: 04/12/20 19 Low tension glaucoma VADIM Cabrera Onset: 04/12/2019 Hyperlipidemia Leena Mathews D.O. Onset: 2020 Social History Type Date Description Comments Sex Unknown Tobacco Use Start: Unknown Light tobacco smoker (10 or fewe r cigarettes/day) Smoking Status Reviewed: 03/12/21 Light tobacco smoker (10 or fewer cigarettes/day) [...] SIG Qnty Indications Ordering Provide r Date Aspirin 81mg Chewtabs 1 by mouth every day 90units G43.409 Leena Mathews D.O. 03/12 Metformin HCL ER 500mg Tablets ER 24HR 2 tablets by mouth twice daily with meals 180tabs E88.81 Leena Mathews D.O. 02/07/2021 Verapamil HCL 40mg Tablets 1/2 tablets by mouth every 12 hours 90tabs G43.409 Jun TenaOSolomon 12/03/2020 Esomeprazole Magnesium 20mg Capsul es DR 1 by mouth every day 90caps Jun TenaOSolomon Lisinopril 40mg Tablets 1 by mouth every day 90tabs I10 Jun TenaOSolomon 11/19 Nurtec 75mg Tablets Dispers one tablet by mouth once every 24 hours as needed 8tabs Leena Shaffer D.O. 10/31/2020 Atorvastatin Calcium 20mg Tablets 1 by mouth every night 90tabs G43.409 Jun TenaOSolomon Alprazolam 0.5mg Tablets take one tablet by mouth every 12 hours as needed istop: [id number] 45tabs Leena Yarbrough D.O. 10/11/2020 Albuterol Sulfate HFA 108(90Base) mcg/Act Aerosol 1-2 puffs every 4-6 hours as needed for shortness of breath Unknown Lumigan 0.01% Solution instill 1 drop in each eye once at night Unknown 0000 0 Multi Vitamin Daily Tablets 1 by mouth every day Unknown History Medications Hydrochlorothiazide 12.5mg Capsule s 1 by mouth as needed for swelling 90caps R60.0 Jun HernandezO. 02/07/2021 - 03/12/2021 Ketorolac Tromethamine 10mg Tablet s take one tablet by mouth every 8 hours with food by mouth. for max of five days. 15tabs R10.32 Jun TenaO. 10/31/2020 - 11/19/2020 Nicotine Step 2 14mg/24HR Patches 24HR apply one patch on skin once a day, alternate sites 30units Jun SilvaOSolomon 10/15/2020 - 10/15/2020 Nicotine 14mg/24HR Patches 24HR apply one patch on skin once a day, alternate sites 30units Jun EcheverriaOSolomon 10/15/2020 - 02/07/2021 Butalbital/Acetaminophen/Caffeine 50-325-40mg Tablets take one tablet every 8 hours as needed for headaches. 60tab s G43.409 Jun TenaOSolomon 10/15/2020 - 10/31/[address] 1 by mouth every day 90tabs G43.409 Leena Mathews D.O. 10/15 - 03/12/2021 Echocardiogram Symptom: dyspnea on exertion, hx of HTN 1units I10 Leena Yarbrough D.O. 10/15/2020 - 10/31/[address] take one tab with food twice a day as needed 180tabs M25.551 Jun ArangoOSolomon 09/19/2020 - 09/19/2020 Prednisone 20mg Tablets take two tablets once a day by mouth for five days 10tabs M25.551 Jun SilvaOSolomon 09/19/2020 - 10/15/2020 Hydrocodone-Acetaminophen 5-325mg Tablets 1 tablet by mouth every 6 hours as needed for pain 28tabs M25.551 Leena Yarbrough D.O. 09/19/2020 - 10/15/2020 Naproxen 500mg Tablets take one tab with food twice a day as needed 180tabs M25.551 Jun TenaOSolomon 09/19/2020 - 10/15/2020 Medications Administered in Office Medication SIG Qnty Indications Ordering Provider Date Injection Ketorolac Tromethamine Per 15 MG (Toradol) Injection VADIM Wilson 10/31/2020 Injection Ketorolac Tromethamine Per 15 MG (Toradol) Injection VADIM Wilson 09/19/2020 Immunizations Description No Information Available Vital Signs Date Vital Result Comment 03/12/2021 8:14am BP Systolic 132 mmHg BP Diastolic 88 mmHg Height 60 inches 5'0" Weight 244.00 lb BMI (Body Mass Index) 47.6 kg/m2 Heart Rate 90 /min Respiratory Rate 18 /min Body Temperature 98.6 F O2 % BldC Oximetry 96 % [place] Body Weight 100 lb 02/07/2021 9:22am BP Systolic 148 mmHg BP Diastolic 86 mmHg Height 60 inches 5'0" Weight 246.00 lb BMI (Body Mass Index) 48.0 kg/m2 Heart Rate 74 /min Respiratory Rate 18 /min Body Temperature 97.9 F O2 % BldC Oximetry 97 % [place] Body Weight 100 lb Results Test Acquired Date Facility Test Result H/L Range Note CBC With Differential 03/02/[address] [address] [phone] White Blood Count 6.1 10 Normal 4.0-10.0 [...] 36.0-66.0 Lymph % 39.4 % Normal 24.0-44.0 Kerr % 4.9 % Normal 2.0-8.0 Eos % 2.3 % Normal 0.0-3.0 Baso % 0.5 % Normal 0.0-1.0 Immature Granulocyte % 0.3 % Normal 0-3.0 Nucleated Red Blood Cell % 0.0 % Normal 0-0 Neutrophils # 3.2 10 Normal 1.5-8.5 Lymph # 2.4 10 Normal 1.5-5.0 Kerr # 0.3 10 Normal 0.0-0.8 Eos # 0.1 10 Normal 0.0-0.5 Baso # 0.0 10 Normal 0.0-0.2 Lipid Panel 03/02/2021 [facility] [address] [place] [address] [phone] Triglycerides Level 112 mg/dL Normal <150 Cholesterol Level 103 mg/dL Normal <200 HDL Cholesterol 39 mg/dL Low >40 LDL Cholesterol 42 mg/dL Normal <100 Non-HDL-C 64 mg/dL Normal Cholesterol Risk Ratio 2.641 Normal <5 FT4&TSH Panel 03/02/2021 [facility] nter [address] [place] [address] [phone] Thyroid Stimulating Hormone 2.040 uIU/ML Normal 0. 358-3.740 Free T4 0.99 ng/dL Normal 0.76-1.46 Comprehensive Metabolic Profil 03/02/[address] [address] [phone] Glucose, Fasting 83 mg/dL Normal 70-100 Blood Urea Nitrogen 9 mg/dL Normal 7-18 Creatinine For GFR 0.69 mg/dL Normal 0.55-1.30 Glomerular Filtration Rate > 60.0 Normal >58 1 Sodium Level 143 mEq/L Normal 136-145 Potassium [...] Normal 3.2-5.2 Albumin/Globulin Ratio 1.1 Low 1.2-2.2 Istat Chem8+ Panel 11/01/2020 [facility] Outpatient Testi ng (Registration) [address] [place] [address] [phone] iSTAT HCT 39.0 % Normal 38.0-51.0 iSTAT Glucose 71 mg/dL Normal 70-105 iSTAT Sodium 141 mEq/L Normal 136-145 iSTAT Potassium 4.5 mEq/L Normal 3.5-5.1 iSTAT CA++ 4.7 mg/dL Normal 4.5-5.3 iSTAT Chloride 109 mEq/L Normal 98-109 iSTAT Co2 27.0 MM/L Normal 23.0-27.0 iSTAT BUN 7 mg/dL Low 8-26 iSTAT Creatinine 0.6 mg/dL Normal 0.6-1.3 CBC With Differential 11/01/2020 [facility] Outpatient [place] ting (Registration) [address] [place] [address] [phone] White Blood Count 10.4 10 High 4.0-10.0 Red Blood Count 4.36 10 Normal 4.00-5.40 Hemoglobin 13.1 g/dL Normal 12.0-15.5 Hematocrit 41.2 % Normal 36.0-47.0 Mean Corpuscular Volume 94.5 fl Normal 80.0-96.0 Mean Corpuscular Hemoglobin 30.0 pg Normal 27.0-33.0 Mean Corpuscular HGB Conc 31.8 g/dL Low 32.0-36.5 Red Cell Distribution Width 13.7 % Normal 11.5-14.5 Platelet Count, Automated 313 10 Normal 150-450 Neutrophils % 72.9 % High 36.0-66.0 Lymph % 19.1 % Low 24.0-44.0 Kerr % 6.0 % Normal 2.0-8.0 Eos % 1.5 % Normal 0.0-3.0 Baso % 0.2 % Normal 0.0-1.0 Immature Granulocyte % 0.3 % Normal 0-3.0 Nucleated Red Blood Cell % 0.0 % Normal 0-0 Neutrophils # 7.6 10 Normal 1.5-8.5 Lymph # 2.0 10 Normal 1.5-5.0 Kerr # 0.6 10 Normal 0.0-0.8 Eos # 0.2 10 Normal 0.0-0.5 Baso # 0.0 10 Normal 0.0-0.2 Liver Profile 11/01/2020 [facility] Outpatient Testi ng (Registration) [address] [place] [address] [phone] Ast/Sgot 29 U/L Normal 7-37 Alt/SGPT 24 U/L Normal 12-78 Alkaline Phosphatase 83 U/L Normal 45-117 Bilirubin,Total 0.2 mg/dL Normal 0.2-1.0 Bilirubin,Direct < 0.1 mg/dL Normal 0.0-0.2 Total Protein 6.7 GM/DL Normal 6.4-8.2 Albumin 3.5 GM/DL Normal 3.2-5.2 Albumin/Globulin Ratio 1.1 Low 1.2-2.2 Laboratory test finding 11/01/2020 [facility] Outpatient T elvia (Registration) [address] [place] [address] [phone] Lipase 121 U/L Normal 73-393 Inhouse Ua 10/31/2020 Inhouse Inhouse Leukocytes trace Inhouse Nitrite neg Inhouse Urobilinogen neg Inhouse Protein neg Inhouse PH 7 Inhouse Hemoglobin neg Inhouse Specific [place] 1.010 Inhouse Ketones neg Inhouse Bilirubin neg Inhouse Glucose neg Laboratory test finding 10/31/[address] [address] [phone] Urine Culture FULL REPORT IN L <SEE NOTE> Normal 2 CBC With Differential 10/09/2020 [facility] Outpatient [place] pre[place] (Registration) [address] [place] [address] [phone] White Blood Count 6.8 10 Normal 4.0-10.0 Red Blood Count 4.30 10 Normal 4.00-5.40 Hemoglobin 12.9 g/dL Normal 12.0-15.5 Hematocrit 39.2 % Normal 36.0-47.0 Mean Corpuscular Volume 91.2 fl Normal 80.0-96.0 Mean Corpuscular Hemoglobin 30.0 pg Normal 27.0-33.0 Mean Corpuscular HGB Conc 32.9 g/dL Normal 32.0-36.5 Red Cell Distribution Width 13.4 % Normal 11.5-14.5 Platelet Count, Automated 311 10 Normal 150-450 Neutrophils % 62.8 % Normal 36.0-66.0 Lymph % 28.7 % Normal 24.0-44.0 Kerr % 5.9 % Normal 2.0-8.0 Eos % 1.8 % Normal 0.0-3.0 Baso % 0.4 % Normal 0.0-1.0 Immature Granulocyte % 0.4 % Normal 0-3.0 Nucleated Red Blood Cell % 0.0 % Normal 0-0 Neutrophils # 4.3 10 Normal 1.5-8.5 Lymph # 2.0 10 Normal 1.5-5.0 Kerr # 0.4 10 Normal 0.0-0.8 Eos # 0.1 10 Normal 0.0-0.5 Baso # 0.0 10 Normal 0.0-0.2 Laboratory test finding 10/09/2020 [facility] Outpatient T esting (Registration) [address] [place] [address] [phone] Partial Thromboplastin Time 28.3 seconds Normal 24 .2-38.5 Prothrombin Time/Inr 10/09/2020 [facility] Outpatient Test ing (Registration) [address] [place], [place] [address] [phone] Prothrombin Time 12.9 seconds Normal 12.5-14.3 Inr 0.95 Normal 3 Laboratory test finding 10/09/2020 [facility] Outpatient T esting (Registration) [address] [place] [address] [phone] HCG Serum Qualitative NEGATIVE Normal Negative Basic Metabolic Profile 10/09/2020 [facility] Outpatient T esting (Registration) [address] [place] [address] [phone] Glucose, Fasting 90 mg/dL Normal 70-100 Blood Urea Nitrogen 9 mg/dL Normal 7-18 Creatinine For GFR 0.65 mg/dL Normal 0.55-1.30 Glomerular Filtration Rate > 60.0 Normal >58 4 Sodium Level 141 mEq/L Normal 136-145 Potassium Serum 4.1 mEq/L Normal 3.5-5.1 Chloride Level 111 mEq/L High 98-107 Carbon Dioxide Level 25 mEq/L Normal 21-32 Anion Gap 5 mEq/L Low 8-16 Calcium Level 8.5 mg/dL Normal 8.5-10.1 Liver Profile 10/09/2020 [facility] Outpatient Testi ng (Registration) [address] [place] [address] [phone] Ast/Sgot 10 U/L Normal 7-37 Alt/SGPT 23 U/L Normal 12-78 Alkaline Phosphatase 73 U/L Normal 45-117 Bilirubin,Total 0.2 mg/dL Normal 0.2-1.0 Bilirubin,Direct < 0.1 mg/dL Normal 0.0-0.2 Total Protein 6.8 GM/DL Normal 6.4-8.2 Albumin 3.5 GM/DL Normal 3.2-5.2 Albumin/Globulin Ratio 1.1 Low 1.2-2.2 Cardiac Marker Panel 10/09/2020 [facility] Outpatient Test ing (Registration) [address] [place] [address] [phone] CPK Creatine Phosphokinase 56 U/L Normal 26-19 2 CK-MB Value Mass < 1.0 NG/ML Normal <3.6 MB/CK Relative Index 1.79 Normal < Or =4 5 Troponin I < 0.02 NG/ML Normal < 0.10 6 CBC With Differential 10/06/2020 [facility] Outpatient [place] ting (Registration) [address] [place] [address] [phone] White Blood Count 7.9 10 Normal 4.0-10.0 Red Blood Count 4.13 10 Normal 4.00-5.40 Hemoglobin 12.4 g/dL Normal 12.0-15.5 Hematocrit 37.7 % Normal 36.0-47.0 Mean Corpuscular Volume 91.3 fl Normal 80.0-96.0 Mean Corpuscular Hemoglobin 30.0 pg Normal 27.0-33.0 Mean Corpuscular HGB Conc 32.9 g/dL Normal 32.0-36.5 Red Cell Distribution Width 13.6 % Normal 11.5-14.5 Platelet Count, Automated 314 10 Normal 150-450 Neutrophils % 55.0 % Normal 36.0-66.0 Lymph % 36.2 % Normal 24.0-44.0 Kerr % 5.8 % Normal 2.0-8.0 Eos % 2.1 % Normal 0.0-3.0 Baso % 0.5 % Normal 0.0-1.0 Immature Granulocyte % 0.4 % Normal 0-3.0 Nucleated Red Blood Cell % 0.0 % Normal 0-0 Neutrophils # 4.4 10 Normal 1.5-8.5 Lymph # 2.9 10 Normal 1.5-5.0 Kerr # 0.5 10 Normal 0.0-0.8 Eos # 0.2 10 Normal 0.0-0.5 Baso # 0.0 10 Normal 0.0-0.2 Basic Metabolic Profile 10/06/2020 [facility] Outpatient T elvia (Registration) [address] [place] [address] [phone] Glucose, Fasting 106 mg/dL High 70-100 Blood Urea Nitrogen 12 mg/dL Normal 7-18 Creatinine For GFR 0.68 mg/dL Normal 0.55-1.30 Glomerular Filtration Rate > 60.0 Normal >58 7 Sodium Level 143 mEq/L Normal 136-145 Potassium Serum 3.9 mEq/L Normal 3.5-5.1 Chloride Level 111 mEq/L High 98-107 Carbon Dioxide Level 27 mEq/L Normal 21-32 Anion Gap 5 mEq/L Low 8-16 Calcium Level 8.9 mg/dL Normal 8.5-10.1 1 Units are mL/min/1.73 m2 Chronic Kidney Disease Staging per NKF: Stage I & II GFR >=60 Normal to Mildly Decreased Stage III GFR 30-59 Moderately Decreased Stage IV GFR 15-29 Severely Decreased Stage V GFR <15 Very Little GFR Left ESRD GFR <15 on ONLINE EDUCATION MANAGER 2 FULL REPORT IN LAB NOTES (eC W and Med[facility]). SPECIMEN APPEARS CONTAMINATED 3 THERAPUTIC HUMAN INR VALUES INDICATIONS NORMAL RANGES PROPHYLAXIS/TREATMENT OF: VENOUS THROMBOSIS 2.0-3.0 PULMONARY EMBOLISM 2.0-3.0 PREVENTION OF SYSTEMIC EMBOLISM FROM: TISSUE HEART VALVES 2.0-3.0 ACUTE MYOCARDIAL INFARCTION 2.0-3.0 VALVULAR HEART DISEASE 2.0-3.0 ATRIAL FIBRILLATION 2.0-3.0 MECHANICAL VALVES(HIGH RISK) 2.5-3.5 RECURRENT MYOCARDIAL INFARCTION 2.5-3.5 4 Units are mL/min/1.73 m2 Chronic Kidney Disease Staging per NKF: Stage I & II GFR >=60 Normal to Mildly Decreased Stage III GFR 30-59 Moderately Decreased Stage IV GFR 15-29 Severely Decreased Stage V GFR <15 Very Little GFR Left ESRD GFR <15 on ONLINE EDUCATION MANAGER 5 DIAGNOSIS CRITERIA MMB ng/ml Relative Index (RI) NON-AMI < or = 5 N/A ADAMS ZONE > 5 < or = 4 AMI > 5 > 4 6 Troponin I Reference Interva l for [employer] LOCI: 99th Percentile= 0.00-0.045 ng/ml Risk Stratification: <= 0.10 ng/ml Decreased Risk for Adverse Clinical Events. 0.10-1.50 ng/ml Increased Risk for Adv erse Clinical Events. Evaluation of additional criterion and/or repeat testing in 2-6 hours is suggested to rule out myocardial damage. >= 1.50 ng/ml Indicative of Myocardial Injury. 7 Units are mL/min/1.73 m2 Chronic Kidney Disease Staging per NKF: Stage I & II GFR >=60 Normal to Mildly Decreased Stage III GFR 30-59 Moderately Decreased Stage IV GFR 15-29 Severely Decreased Stage V GFR <15 Very Little GFR Left ESRD GFR <15 on ONLINE EDUCATION MANAGER Procedures Date Code Description Status 03/12/2021 06470 Office/Outpatient Established Mo d MDM 30-39 Min Completed 02/07/2021 14728 Preventive Visit Est 40-64 Yrs C ompleted 02/07/2021 23873 Office/Outpatient Established Lo w MDM 20-29 Min Completed 12/12/2020 [id number] Mammogram Completed 12/03/2020 33129 Office/Outpatient Established Mo d MDM 30-39 Min Completed 11/19/2020 30587 Office/Outpatient Established Mo d MDM 30-39 Min Completed 10/31/2020 42627 Office/Outpatient Established Mo d MDM 30-39 Min Completed 10/15/2020 48389 Garza Cre W/I 7 Days Of DC, Comm W/I 2 Dys Completed 10/15/2020 66047 Smoking & Tobacco Ce ssation Counseling Visit Intermediate 3-10Min Completed 09/19/2020 42715 Office/Outpatient Established Lo w MDM 20-29 Min Completed Medical Devices Description No Information Available Encounters Type Date Location Provider Dx Diagnosis Office Visit 03/12/2021 8:20a [facility] Johnny Jeffery.O. E88.81 Metabolic syndrome I10 Essential (primary) hyperten sergio J45.20 Mild intermittent asthma, un complicated F17.210 Nicotine dependence, cigaret [place], uncomplicated E78.5 Hyperlipidemia, unspecified Office Visit 02/07/2021 9:40a [facility] Jun JefferyO. 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 Low-tension glaucoma, bilate ral, mild stage Z79.899 Other assisted (current) dr kumar england E78.5 Hyperlipidemia, unspecified R60.0 Localized edema E88.81 Metabolic syndrome Office Visit 12/03/2020 10:20a [facility] VADIM Richards I10 Essential (primary) hyperten sergio G43.409 Hemiplegic migraine, not int ractable, w/o status migrainosus J45.20 Mild intermittent asthma, un complicated F41.1 Generalized anxiety disorder Z12.31 Encntr screen mammogram for malignant neoplasm of breast Office Visit 11/19/2020 1:00p [facility] VADIM Cabrera I10 Essential (primary) hyperten sergio G43.409 Hemiplegic migraine, not int ractable, w/o status migrainosus J45.20 Mild intermittent asthma, un complicated F41.1 Generalized anxiety disorder Office Visit 10/31/2020 9:40a [facility] VADIM Cabrera G43.409 Hemiplegic migraine, not int ractable, w/o status migrainosus I10 Essential (primary) hyperten sergio R10.32 Left lower quadrant pain Office Visit 10/15/2020 8:45a [facility] VADIM Cabrera G43.409 Hemiplegic migraine, not int ractable, w/o status migrainosus I10 Essential (primary) hyperten sergio F17.210 Nicotine dependence, cigaret [place], uncomplicated Office Visit 09/19/2020 1:00p [facility] VADIM Cabrera M25.551 Pain in right hip Assessments Date Code Description Provider 03/12/2021 E88.81 Metabolic syndrome Johnny Brock.OSolomon 03/12/2021 I10 Essential (primary) hypertension Johnny Tena.OSolomon 03/12/2021 J45.20 Mild intermittent asthma, uncomp licated Johnny Tena.OSolomon 03/12/2021 F17.210 Nicotine dependence, cigarettes, uncomplicated Leena Yarbrough D.OSolomon 03/12/2021 E78.5 Hyperlipidemia, unspecified Leena Danny-Zenon, D.O. 02/07/2021 Z00.01 Encounter for genera l adult medical examination with abnormal findings Leena Mathews D.O. 02/07/2021 I10 Essential (primary) hypertension Leena Mathews, D.O. 02/07/2021 J45.20 Mild intermittent asthma, uncomp licated Leena Mathews, D.O. 02/07/2021 F17.210 Nicotine dependence, cigarettes, uncomplicated Leena Yarbrough, D.O. 02/07/2021 H40.1231 Low-tension glaucoma, bilateral, mild stage Leena Yarbrough, D.O. 02/07/2021 Z79.899 Other assisted (current) drug t herapy Leena Mathews, D.O. 02/07/2021 E78.5 Hyperlipidemia, unspecified Leena Mathews, D.O. 02/07/2021 R60.0 Localized edema Leena echeverria, D.O. 02/07/2021 E88.81 Metabolic syndrome Leena Cabrera, D.O. 12/03/2020 I10 Essential (primary) hypertension VADIM [...] 11/19/2020 F41.1 Generalized anxiety disorder VADIM Mcgovern 10/31/2020 G43.409 Hemiplegic migraine, not intractable, without status migrainosus VADIM Cabrera 10/31/2020 I10 Essential (primary) hypertension VADIM Cabrera 10/31/2020 R10.32 Left lower quadrant pain VADIM Cabrera 10/15/2020 G43.409 Hemiplegic migraine, not intractable, without status migrainosus VADIM Cabrera 10/15/2020 I10 Essential (primary) hypertension VADIM Cabrera 10/15/2020 F17.210 Nicotine dependence, cigarettes, uncomplicated VADIM Cabrera 09/19/2020 M25.551 Pain in right hip VADIM Christianson Plan of Treatment Future Appointment(s):* 05/06/2021 8:30 am - Leena Mathews D.O. at [facility] Functional Status Description No Information Available Mental Status Description No Information Available Referrals Refer to Dr Reason for Referral Status Appt Theodore Cross M.D. Hemiplegic migraines which r equired observation admission in the hospital due to concern about possible TIA. Please evaluate and treat. has a history of HTN which we are currently treating. Closed 09/2020 [facility] [address] [place], [place] [address] [phone] [facility] right hip and groin pain wit h pain radiating down right lower extremity [address] [place] [address] [phone]
--- OUTSIDE RECORDS SUMMARY | 2021-06-01 13:11 | CCD ---
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 s Both Eyes 05/31/2020 - 12:00AM Dominic Thornton MD, SARI Active Borderline Glaucoma Ocular Hypertension Both Eyes 01/11/2019 - 1 2:00AM Dominic Thornton MD, SARI Inactive Blepharitis Squamous 01/11/2019 - 12:00AM Dominic Drummond MD, SARI Active Squamous blepharitis right lower eyelid 01/11/2019 - 12:00AM Dominic Mcdowell MD, SARI Active Squamous blepharitis left upper eyelid 01/11/2019 - 12:00AM Dominic Mcdowell MD, SARI Active Squamous blepharitis left lower eyelid 01/11/2019 - 12:00AM Dominic Mcdowell MD, SARI Active Vitreous Disorders Degeneration 01/11/2019 - 12:00AM Dominic Thornton MD, FACS Active Plan of Treatment Findings Encounter Date Ordered intervention and counseling on cessation of to bacco use, 3-10 minutes IOP CHECK with Dominic Thornton MD, FACS 02/18/2019 Ordered intervention and counseling on cessation of to bacco use, 3-10 minutes NEW PATIENT WITH REFERRAL with Dominic Thornton MD, FACS 01/11/2019 Assessments Includes: Assessments for all patient encounters Findings Encounter Date Open angle borderline glaucoma in both eyes TESTING - VISUAL FIELD & OCT with Dominic Thornton MD, FACS 05/23/2020 Borderline glaucoma ocular hypertension in both eyes I OP CHECK with Dominic Thornton MD, FACS 09/01/2019 Borderline glaucoma ocular hypertension in both eyes I OP CHECK with Dominic Thornton MD, FACS 04/18/2019 Borderline glaucoma ocular hypertension in both eyes I OP CHECK with Dominic Thornton MD, FACS 02/18/2019 Borderline glaucoma ocular hypertension in both eyes T ESTING - VISUAL FIELD & OCT with Dominic Thornton MD, FACS 01/24/2019 Borderline glaucoma ocular hypertension in both eyes N EW PATIENT WITH REFERRAL with Dominic Thornton MD, FACS 01/11/2019 Squamous blepharitis right upper eyelid , right lower eyelid, left upper eyelid, left lower eyelid NEW PATIENT WITH REFERRAL with Dominic Thornton MD, [facility] 01/11/2019 Vitreous degeneration NEW PATIENT WITH REFERRAL [facility] Dominic Thornton MD, [facility] 01/11/2019 Instructions Instructions not supported for this document typeNo Instructions Recorded Medical Equipment - Implanted Devices Includes: Current and historical DevicesNo Medical Equipment Recorded Medications Includes: Current and historical Medications Current Medications (continue as prescribed) Lumigan 0.01% Ophthalmic Solution 02/18/2019 Provid er: Dominic Thornton MD, [facility] Diagnosis: Ocular hypertension, bilateral One drop in each eye at night time. Lisinopril 20MG Oral Tablet 01/11/2019 Provider: Diagnosis: Vitamin D Oral Tablet 01/11/2019 Provider: Diagnosis: Phentermine HCl 37.5MG Oral Tablet 01/11/2019 Provi leigh: Diagnosis: Medications Administered Includes: Administered Medications in patient's chartNo Administered Medications Recorded Vital Signs Includes: Vital Signs from 05/02/2020 through 05/02/2021No Vital Signs Recorded For Specified Dates Results Includes: Results from 05/02/2020 through 05/02/2021No Results Recorded For Specified Dates History of Present Illness History of Present Illness not supported for this document typeNo History of Present Illness Recorded Social History Description Last Updated Current smoker 09/01/2019 Current every day smoker 09/01/2019 Not using alcohol 09/01/2019 Not using drugs 09/01/2019 Smoking status : Current everyday smoker 09/01/2019 Tobacco use 09/01/2019 Procedures and Surgical History Includes: Procedures from 05/02/2020 through 05/02/2021 Procedures Code Diagnosis Performing Provider Service Location Service Date Scodi, optic nerve with interpretation and report 05975 Open angle with borderline findings, low risk, bilateral Dominic Thornton MD, SARI Thornton MD [facility] 05/23/2020 Visual Field 27618 Open angle with borderline findi ngs, low risk, bilateral Dominic Thornton MD, SARI Thornton MD [facility] 05/23/2020 Surgical History Last Updated Surgical / procedural history C- Section 2011, 2019 Medical History Includes: Medical History in patient's chart Description Last Updated Currently wearing eyeglasses 09/01/2019 History of asthma 09/01/2019 History of hypertension 09/01/2019 No recent change in medical history 09/01/2019 Family History Includes: Family History in patient's chartNo Family History Recorded Review of Systems Review of Systems not supported for this document typeNo Review of Systems Recorded Mental Status Mental Status not supported for this document typeNo Mental Status Recorded Functional Status Functional Status not supported for this document typeNo Functional Status Recorded Physical Exam Physical Exam not supported for this document typeNo Physical Exam Recorded Immunizations Includes: Immunizations in patient's chartNo Immunizations Recorded Allergies Includes: Active, inactive, and resolved AllergiesNo Known Allergies Encounters Includes: Encounters from 05/02/2020 through 05/02/2021 Encounter Provider Location Date Check-In Time Check-Out Time D iagnosis TESTING - VISUAL FIELD & OCT Dominic Thornton MD, FACS Yoel Thornton MD [facility] 05/23/2020 7:39AM 8:20AM Borderline Glauc dontae Open Angle with Borderline Findings Both Eyes Insurance Includes: Active Insurance Policies Plan Name Member ID Group # Subscriber Relationship Effective [place] 1 - [employer] BC/BS [id number] Rossi Wren Self Advance Directives Includes: Current Advance DirectivesNo Advance Directives Recorded Health Concerns Includes: Active Health ConcernsNo Active Health Concerns Recorded Goals Includes: Active GoalsNo Active Goals Recorded Interventions Includes: Interventions for active GoalsNo Interventions Recorded Evaluations & Outcomes Includes: Evaluations & Outcomes for active GoalsNo Outcomes Recorded
--- OUTSIDE RECORDS SUMMARY | 2021-06-01 13:11 | CCD ---
Author Author Dominic Thornton MD [facility] Organization Dominic Thornton MD [facility] Address [address] [address] Phone Care Team Providers Care Drafter Geological Name Role Phone Norberto DAVE, Dominic GUO Unavailable [phone] Reason for Referral No Reason for Referral [...] PATIENT WITH REFERRAL with Dominic Thornton MD, [facility] 01/11/2019 Vitreous degeneration NEW PATIENT WITH REFERRAL [facility] Dominic Thornton MD, [facility] 01/11/2019 Instructions Instructions not supported for this document typeNo Instructions Recorded Medical Equipment - Implanted Devices Includes: Current and historical DevicesNo Medical Equipment Recorded Medications Includes: Current and historical Medications Current Medications (continue as prescribed) Lumigan 0.01% Ophthalmic Solution 02/18/2019 Provid er: Dominic Thornton MD, [facility] Diagnosis: Ocular hypertension, bilateral One drop in each eye at night time. Lisinopril 20MG Oral Tablet 01/11/2019 Provider: Diagnosis: Vitamin D Oral Tablet 01/11/2019 Provider: Diagnosis: Phentermine HCl 37.5MG Oral Tablet 01/11/2019 Provi leigh: Diagnosis: Medications Administered Includes: Administered Medications in patient's chartNo Administered Medications Recorded Vital Signs Includes: Vital Signs from 03/25/2020 through 03/25/2021No Vital Signs Recorded For Specified Dates Results Includes: Results from 03/25/2020 through 03/25/2021No Results Recorded For Specified Dates History of Present Illness History of Present Illness not supported for this document typeNo History of Present Illness Recorded Social History Description Last Updated Current smoker 09/01/2019 Current every day smoker 09/01/2019 Not using alcohol 09/01/2019 Not using drugs 09/01/2019 Smoking status : Current everyday smoker 09/01/2019 Tobacco use 09/01/2019 Procedures and Surgical History Includes: Procedures from 03/25/2020 through 03/25/2021 Procedures Code Diagnosis Performing Provider Service Location Service Date Scodi, optic nerve with interpretation and report 69361 Open angle with borderline findings, low risk, bilateral Dominic Thornton MD, SARI Thornton MD [facility] 05/23/2020 Visual Field 40410 Open angle with borderline findi ngs, low risk, bilateral Dominic Thornton MD, SARI Thornton MD [facility] 05/23/2020 Surgical History Last Updated Surgical / [...] AllergiesNo Known Allergies Encounters Includes: Encounters from 03/25/2020 through 03/25/2021 Encounter Provider Location Date Check-In Time Check-Out Time D iagnosis TESTING - VISUAL FIELD & OCT Dominic Thornton MD, FACS Yoel Thornton MD [facility] 05/23/2020 7:39AM 8:20AM Borderline Glauc dontae Open Angle with Borderline Findings Both Eyes Insurance Includes: Active Insurance Policies Plan Name Member ID Group # Subscriber Relationship Effective [place] 1 - [employer] BC/BS [id number] Rossi Wren Self Advance Directives Includes: Current Advance DirectivesNo Advance Directives Recorded Health Concerns Includes: Active Health ConcernsNo Active Health Concerns Recorded Goals Includes: Active GoalsNo Active Goals Recorded Interventions Includes: Interventions for active GoalsNo Interventions Recorded Evaluations & Outcomes Includes: Evaluations & Outcomes for active GoalsNo Outcomes Recorded
--- OUTSIDE RECORDS SUMMARY | 2021-06-01 13:11 | CCD | Continuity of Care Document ---
Author Author Rossi MATHEWS D.O. Organization Unknown Address [address] [place] [address] Phone [phone] Care Team Providers Care Borderer Name Role Phone Leena Mathews D.O. AUTM Dominic Thornton MD [facility] [phone] Niharika Quiles NP [facility] [phone] [facility] [phone] Theodore Dorsey M.D. AUTM [phone] Problems Active Problems Provider Date Essential hypertension [...] SIG Qnty Indications Ordering Provide r Date Naproxen 500mg Tablets Take One Tablet By Mouth Twice A Day With Food as Needed 180tabs Jun LiO. 03/24/2021 Aspirin 81mg Chewtabs 1 by mouth every day 90units G43.409 Leena Mathews D.O. 03/12 Metformin HCL ER 500mg Tablets ER 24HR 2 tablets by mouth twice daily with meals 180tabs E88.81 Jun TenaOSolomon 02/07/2021 Verapamil HCL 40mg Tablets 1/2 tablets by mouth every 12 hours 90tabs G43.409 Jun TenaO. 12/03/2020 Esomeprazole Magnesium 20mg Capsul es DR 1 by mouth every day 90caps Leena Mathews D.O. Lisinopril 40mg Tablets 1 by mouth every day 90tabs I10 Leena Mathews D.O. 11/19 Nurtec 75mg Tablets Dispers one tablet by mouth once every 24 hours as needed 8tabs Leena Shaffer D.O. 10/31/2020 Atorvastatin Calcium 20mg Tablets 1 by mouth every night 90tabs G43.409 Leena Mathews D.O. Alprazolam 0.5mg Tablets take one tablet by mouth every 12 hours as needed istop: [id number] 45tabs Leena Yarbrough D.O. 10/11/2020 Albuterol Sulfate [...] 15tabs R10.32 Jun TenaO. 10/31/2020 - 11/19/2020 Medications Administered in Office Medication SIG Qnty [...] F O2 % BldC Oximetry 96 % [place] Body Weight 100 lb 02/07/2021 9:22am BP Systolic 148 mmHg BP Diastolic 86 mmHg Height 60 inches 5'0" Weight 246.00 lb BMI (Body Mass Index) 48.0 kg/m2 Heart Rate 74 /min Respiratory Rate 18 /min Body Temperature 97.9 F O2 % BldC Oximetry 97 % [place] Body Weight 100 lb Results Test Acquired Date Facility Test Result H/L Range Note Laboratory test finding 04/20/[address] [address] [phone] Insulin Level 0.8 uIU/mL Low 2.6-24.9 1 Hemoglobin A1c 04/20/2021 [facility] [address] [place] [address] [phone] Hemoglobin A1c 5.9 % Normal 2 Estimated Average Glucose 123 mg/dL High 60-110 Comprehensive Metabolic Profil 04/20/[address] [id number] [phone] Glucose, Fasting 80 mg/dL Normal 70-100 Blood [...] Ratio 1.1 Low 1.2-2.2 Lipid Panel 04/20/2021 [facility] [address] [place] [address] [phone] Triglycerides Level 90 mg/dL Normal <150 Cholesterol Level 107 mg/dL Normal <200 HDL Cholesterol 41 mg/dL Normal >40 LDL Cholesterol 48 mg/dL Normal <100 Non-HDL-C 66 mg/dL Normal Cholesterol Risk Ratio 2.609 Normal <5 Comprehensive Metabolic Profil 03/02/[address] [address] [phone] Glucose, Fasting 83 mg/dL Normal 70-100 Blood [...] 1.1 Low 1.2-2.2 CBC With Differential 03/02/[address] [address] [phone] White Blood Count 6.1 10 Normal 4.0-10.0 [...] 36.0-66.0 Lymph % 39.4 % Normal 24.0-44.0 [place] % 4.9 % Normal 2.0-8.0 Eos % 2.3 % Normal 0.0-3.0 Baso % 0.5 % Normal 0.0-1.0 Immature Granulocyte % 0.3 % Normal 0-3.0 Nucleated Red Blood Cell % 0.0 % Normal 0-0 Neutrophils # 3.2 10 Normal 1.5-8.5 Lymph # 2.4 10 Normal 1.5-5.0 [place] # 0.3 10 Normal 0.0-0.8 Eos # 0.1 10 Normal 0.0-0.5 Baso # 0.0 10 Normal 0.0-0.2 Lipid Panel 03/02/2021 [facility] [address] [place] [address] [phone] Triglycerides Level 112 mg/dL Normal <150 Cholesterol Level 103 mg/dL Normal <200 HDL Cholesterol 39 mg/dL Low >40 LDL Cholesterol 42 mg/dL Normal <100 Non-HDL-C 64 mg/dL Normal Cholesterol Risk Ratio 2.641 Normal <5 FT4&TSH Panel 03/02/2021 [facility] [address] [place] [address] [phone] Thyroid Stimulating Hormone 2.040 uIU/ML Normal 0. 358-3.740 Free T4 0.99 ng/dL Normal 0.76-1.46 Istat Chem8+ Panel 11/01/2020 [facility] Outpatient Testi ng (Registration) [address] [place] [address] [phone] iSTAT HCT 39.0 % Normal 38.0-51.0 iSTAT Glucose 71 mg/dL Normal 70-105 iSTAT Sodium 141 mEq/L Normal 136-145 iSTAT Potassium 4.5 mEq/L Normal 3.5-5.1 iSTAT CA++ 4.7 mg/dL Normal 4.5-5.3 iSTAT Chloride 109 mEq/L Normal 98-109 iSTAT Co2 27.0 MM/L Normal 23.0-27.0 iSTAT BUN 7 mg/dL Low 8-26 iSTAT Creatinine 0.6 mg/dL Normal 0.6-1.3 CBC With Differential 11/01/2020 [facility] Outpatient [place] (Registration) [address] [place] [address] [phone] White Blood Count 10.4 10 High 4.0-10.0 [...] 36.0-66.0 Lymph % 19.1 % Low 24.0-44.0 [place] % 6.0 % Normal 2.0-8.0 Eos % 1.5 % Normal 0.0-3.0 Baso % 0.2 % Normal 0.0-1.0 Immature Granulocyte % 0.3 % Normal 0-3.0 Nucleated Red Blood Cell % 0.0 % Normal 0-0 Neutrophils # 7.6 10 Normal 1.5-8.5 Lymph # 2.0 10 Normal 1.5-5.0 [place] # 0.6 10 Normal 0.0-0.8 Eos # 0.2 10 Normal 0.0-0.5 Baso # 0.0 10 Normal 0.0-0.2 Liver Profile 11/01/2020 [facility] Outpatient Testi ng (Registration) [address] [place] [address] [phone] Ast/Sgot 29 U/L Normal 7-37 Alt/SGPT 24 U/L Normal 12-78 Alkaline Phosphatase 83 U/L Normal 45-117 Bilirubin,Total 0.2 mg/dL Normal 0.2-1.0 Bilirubin,Direct < 0.1 mg/dL Normal 0.0-0.2 Total Protein 6.7 GM/DL Normal 6.4-8.2 Albumin 3.5 GM/DL Normal 3.2-5.2 Albumin/Globulin Ratio 1.1 Low 1.2-2.2 Laboratory test finding 11/01/2020 [facility] Outpatient T esting (Registration) [address] [place] [address] [phone] Lipase 121 U/L Normal 73-393 Inhouse Ua 10/31/2020 Inhouse Inhouse Leukocytes trace Inhouse Nitrite neg Inhouse Urobilinogen neg Inhouse Protein neg Inhouse PH 7 Inhouse Hemoglobin neg Inhouse Specific Vil[place] 1.010 Inhouse Ketones neg Inhouse Bilirubin neg Inhouse Glucose neg Laboratory test finding 10/31/2020 [facility] [address] [place] [address] [phone] Urine Culture FULL REPORT IN L <SEE NOTE> Normal 5 1 Performed at: RN - [facility] [address] [id number] Pump Room Operator: Angeles Torres MD, Phone: [phone] REFERENCE RANGES: <=5.6% NORMAL 5.7-6.4% SUGGESTS IMPAIRED GLUCOSE META BOLISM/PREDIABETIC >= 6.5% ABNORMAL 3 Units are mL/min/1.73 m2 Chronic Kidney Disease Staging per NKF: Stage I & II GFR >=60 Normal to Mildly Decreased Stage III GFR 30-59 Moderately Decreased Stage IV GFR 15-29 Severely Decreased Stage V GFR <15 Very Little GFR Left ESRD GFR <15 on INSTALLATION HELPER 4 Units are mL/min/1.73 m2 Chronic Kidney Disease Staging per NKF: Stage I & II GFR >=60 Normal to Mildly Decreased Stage III GFR 30-59 Moderately Decreased Stage IV GFR 15-29 Severely Decreased Stage V GFR <15 Very Little GFR Left ESRD GFR <15 on INSTALLATION HELPER 5 FULL REPORT IN LAB NOTES (eC W and Medent). SPECIMEN APPEARS CONTAMINATED Procedures Date Code Description Status 03/12/2021 51611 Office/Outpatient Established Mo d MDM 30-39 Min Completed 02/07/2021 40120 Preventive Visit Est 40-64 Yrs C ompleted 02/07/2021 99985 Office/Outpatient Established Lo w MDM 20-29 Min Completed 12/12/2020 [id number] Mammogram Completed 12/03/2020 31354 Office/Outpatient Established Mo d MDM 30-39 Min Completed 11/19/2020 74264 Office/Outpatient Established Mo d MDM 30-39 Min Completed 10/31/2020 25081 Office/Outpatient Established Mo d MDM 30-39 Min Completed Medical Devices Description No Information Available Encounters Type Date Location Provider Dx Diagnosis Office Visit 03/12/2021 8:20a [facility] Rodolfo Mathews D.O. E88.81 Metabolic syndrome I10 Essential (primary) hyperten sergio J45.20 Mild intermittent asthma, un complicated F17.210 Nicotine dependence, cigaret [place], uncomplicated E78.5 Hyperlipidemia, unspecified Office Visit 02/07/2021 9:40a [facility] Leena Mathews D.O. 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 Low-tension glaucoma, bilate ral, mild stage Z79.899 Other manager terminal (current) dr heath therapy E78.5 Hyperlipidemia, unspecified R60.0 Localized edema E88.81 Metabolic syndrome Office Visit 12/03/2020 10:20a [facility] VADIM Richards I10 Essential (primary) hyperten sergio G43.409 Hemiplegic migraine, not int ractable, w/o status migrainosus J45.20 Mild intermittent asthma, un complicated F41.1 Generalized anxiety disorder Z12.31 Encntr screen mammogram for malignant neoplasm of breast Office Visit 11/19/2020 1:00p [facility] VADIM Richards I10 Essential (primary) hyperten sergio G43.409 Hemiplegic migraine, not int ractable, w/o status migrainosus J45.20 Mild intermittent asthma, un complicated F41.1 Generalized anxiety disorder Office Visit 10/31/2020 9:40a [facility] VADIM Richards G43.409 Hemiplegic migraine, not int ractable, w/o status migrainosus I10 Essential (primary) hyperten sergio R10.32 Left lower quadrant pain Assessments Date Code Description Provider 03/12/2021 E88.81 Metabolic syndrome Leena Velazquezno -Zenon, D.O. 03/12/2021 I10 Essential (primary) hypertension Leena Delgado-Zenon, D.O. 03/12/2021 J45.20 Mild intermittent asthma, uncomp licated Leena Danny-Zenon, D.O. 03/12/2021 F17.210 Nicotine dependence, cigarettes, uncomplicated Leena Danny- Zenon, D.O. 03/12/2021 E78.5 Hyperlipidemia, unspecified Leena Danny-Zenon, D.O. 02/07/2021 Z00.01 Encounter for genera l adult medical examination with abnormal findings Leena Delgado-Zenon, D.O. 02/07/2021 I10 Essential (primary) hypertension Leena Buttseano-Zenon, D.O. 02/07/2021 J45.20 Mild intermittent asthma, uncomp licated Leena Danny-Zenon, D.O. 02/07/2021 F17.210 Nicotine dependence, cigarettes, uncomplicated Leena Danny- Zenon, D.O. 02/07/2021 H40.1231 Low-tension glaucoma, bilateral, mild stage Leena Velazquezno- Zenon, D.O. 02/07/2021 Z79.899 Other manager terminal (current) drug t herapy Leena Delgado-Zenon, D.O. 02/07/2021 E78.5 Hyperlipidemia, unspecified Leena Buttseano-Zenon, D.O. 02/07/2021 R60.0 Localized edema Leena echeverria, D.O. 02/07/2021 E88.81 Metabolic syndrome Leena Cabrera D.O. 12/03/2020 I10 Essential (primary) hypertension VADIM Cabrera 12/03/2020 G43.409 Hemiplegic migraine, not intractable, without status migrainosus VADIM Cabrera 12/03/2020 J45.20 Mild intermittent asthma, uncomp licated VADIM Cabrera 12/03/2020 F41.1 Generalized anxiety disorder [facility] VADIM Gaona 12/03/2020 Z12.31 Encounter for screen ing mammogram for malignant neoplasm of breast VADIM Cabrera 11/19/2020 I10 Essential (primary) hypertension VADIM Cabrera 11/19/2020 G43.409 Hemiplegic migraine, not intractable, without status migrainosus VADIM Cabrera 11/19/2020 J45.20 Mild intermittent asthma, uncomp licated VADIM Cabrera 11/19/2020 F41.1 Generalized anxiety disorder [facility] VADIM Gaona 10/31/2020 G43.409 Hemiplegic migraine, not intractable, without status migrainosus VADIM Cabrera 10/31/2020 I10 Essential (primary) hypertension VADIM Cabrera 10/31/2020 R10.32 Left lower quadrant pain VADIM Cabrera Plan of Treatment Future Appointment(s):* 05/06/2021 8:30 am - Leena Mathews D.O. at [facility] Functional Status Description No Information Available Mental Status Description No Information Available Referrals Refer to Reason for Referral Status Appt Theodore Cross M.D. Hemiplegic migraines which r equired observation admission in the hospital due to concern about possible TIA. Please evaluate and treat. has a history of HTN which we are currently treating. Closed 09/2020 [facility] Neurology [address] [place] [address] [phone]
--- OUTSIDE RECORDS SUMMARY | 2021-06-01 13:11 | CCD | Continuity of Care Document ---
Author Author Rossi LAZAR M.D. Organization Unknown Address [address] [place] [address] Phone [phone] Care Team Providers Care Double Bottom Driver Name Role Phone Leena Mathews DO AUTM Problems Active Problems Provider Date Complicated migraine Shireen Lazar M.D. Onset: 11/02/2020 Numbness Shireen Lazar M.D. Onset: 11/02/2020 Social History Type Date Description Comments Sex Unknown Tobacco Use Start: Unknown Patient is a current smoker, smo kes every day Allergies, Adverse Reactions, Alerts Active Allergies Criticality Reaction | Severity Comments Date NKDA Unable to assess criticality 11/02/2020 Triptans Unable to assess criticality Hemiplegic m igraine/TIA 11/02/2020 Medications Active Medications SIG Qnty Indications Ordering Provide r Date Verapamil HCL 40mg Tablets Take by mouth 1/2 tab twice a day for 1 week then take 1 tab by mouth bid. 60tabs Shireen Lazar M.D. 11/02/2020 Nicotine 14mg/24HR Patches 24HR apply one patch on skin once a day, alternate sites 30units Leena Sullivan DO 10/15/2020 Atorvastatin Calcium 20mg Tablets 1 by mouth every night 90tabs G43.409 Leena Mathews DO 10/01 [address] 1 by mouth every day 90tabs G43.409 Leena Mathews DO 2020 Alprazolam 0.5mg Tablets take one tablet by mouth every 12 hours as needed 45tabs Leena Ron DO 10/11/2020 Lisinopril 20mg Tablets Take One Tablet By Mouth Every Day 90tabs Leena Mathews DO Albuterol Sulfate HFA 108(90Base) mcg/Act Aerosol 1-2 puffs every 4-6 hours as needed for shortness of breath Unknown Lumigan 0.01% Solution instill 1 drop in each eye once at night Unknown 0 Nurtec 75mg Tablets Dispers take at the immediate onset of migraine. Unknown Immunizations Description No Information Available Vital Signs Date Vital Result Comment 04/23/2021 1:52pm Respiratory Rate 12 /min Height 61 inches 5'1" Weight 233.00 lb BMI (Body Mass Index) 44.0 kg/m2 [place] Body Weight 105 lb 01/09/2021 11:39am Respiratory Rate 12 /min Height 61 inches 5'1" Weight 240.00 lb BMI (Body Mass Index) 45.3 kg/m2 [place] Body Weight 105 lb Results Description No Information Available Procedures Date Code Description Status 04/23/2021 39395 Office/Outpatient Established Mo d MDM 30-39 Min Completed 01/09/2021 56109 Office/Outpatient Established Mo d MDM 30-39 Min Completed 12/17/2020 08266 EEG Recording Awake & Asleep Com pleted 12/17/2020 97363 EEG Recording Awake & Asleep Com pleted 11/10/2020 56076 Sympathetic Skin Responses Compl eted 11/10/2020 03460 Test Autonomic Nervous System, C ardiovagal Innervation Completed 11/10/2020 09055 Artery Study Extremity Mult Leve ls Bilateral Completed 11/10/2020 86368 Artery Study Extremity Mult Leve ls Bilateral Completed 11/02/2020 51258 Office/Outpatient New High MDM 6 0-74 Minutes Completed Medical Devices Description No Information Available Encounters Type Date Location Provider Dx Diagnosis Office Visit 04/23/2021 1:45p [facility] [place] M.[place]. G43.009 Migraine w/o aura, not intractable, w/o status migrainosus Office Visit 01/09/2021 11:30a Main office - [place] M.[place]. G43.009 Migraine w/o aura, not intractable, w/o status migrainosus R20.2 Paresthesia of skin Office Visit 11/02/2020 8:00a [facility] office - [place] Shireen murry M.D. G43.009 Migraine w/o aura, not intractable, w/o status migrainosus R20.2 Paresthesia of skin G45.8 Oth transient cerebral ische yolanda attacks and related synd Assessments Date Code Description Provider 04/23/2021 G43.009 Migraine without aur a, not intractable, without status migrainosus Shireen Lazar M.D. 01/09/2021 G43.009 Migraine without aur a, not intractable, without status migrainosus Shireen Lazar M.D. 01/09/2021 R20.2 Paresthesia of skin Shireen murry M.D. 12/17/2020 R41.82 Altered mental status, unspecifi ed Anjali DaAsael kline 12/17/2020 R41.82 Altered mental status, unspecifi ed EEG 11/10/2020 I95.1 Orthostatic hypotension Shireen byrnes M.D. 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 11/10/2020 G45.8 Other transient cere bral ischemic attacks and related syndromes Ans/VS 11/02/2020 G43.009 Migraine without aur a, not intractable, without status migrainosus Shireen Lazar M.D. 11/02/2020 R20.2 Paresthesia of skin Shireen murry M.D. 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 Plan of Treatment Future Appointment(s):* 08/08/2021 12:00 pm - Shireen Lazar M.D. at [facility] Functional Status Description No Information Available Mental Status Description No Information Available Referrals Description No Information Available
--- OUTSIDE RECORDS SUMMARY | 2021-06-01 13:11 | CCD | Continuity of Care Document ---
Author Author Rossi EDWARDS [place] Organization Unknown Address [address] [place] [address] Phone [phone] Care Team Providers Care Assembling Fabricator Name Role Phone [facility] AUTM [phone] Tommy Reyes MD AUTM [phone] Problems Active Problems Provider Date Low back pain Nabil Og, PSolomonASolomon Onset: 2010 Social History Type Date Description Comments Sex Unknown ETOH Use Denies alcohol use Tobacco Use Start: Unknown Patient is a current smoker, smo kes every day 1/2 ppd Allergies, Adverse Reactions, Alerts Description No Known Drug Allergies Medications Active Medications SIG Qnty Indications Ordering Provide r Date Astelin 137mcg/[place] Solution 2 spray twice a day as [...] Available Encounters Description No Information Available Assessments Description No Information Available Plan of Treatment No Information Available Functional Status Description No Information Available Mental Status Description No Information Available Referrals Description No Information Available
--- OUTSIDE RECORDS SUMMARY | 2021-06-01 13:11 | CCD | Continuity of Care Document ---
Author Author Rossi MATHEWS D.O. Organization Unknown Address [address] [place] [address] Phone [phone] Care Team Providers Care Reading Assistant Name Role Phone Leena Mathews D.O. AUTM Dominic Thornton MD AUTM [phone] Niharika Quiles NP AUTM [phone] [facility] AUTM [phone] Theodore Dorsey M.D. AUTM [phone] Caleb Rowland MD AUTM [phone] Problems Active Problems Provider Date Essential hypertension [...] Tablets 1 by mouth every day 90tabs Jun TenaOSolomon 05/06/2021 Naproxen 500mg Tablets Take One Tablet By Mouth Twice A Day With Food as Needed 180tabs Jun LiO. 03/24/2021 Aspirin 81mg Chewtabs 1 by mouth every day 90units G43.409 Jun TenaOSolomon 03/12 Metformin HCL ER 500mg Tablets ER 24HR 2 tablets by mouth twice daily with meals 180tabs E88.81 Johnny Tena.OSolomon 02/07/2021 Verapamil HCL 40mg Tablets 1/2 tablets by mouth every 12 hours 90tabs G43.409 Jun TenaO. 12/03/2020 Esomeprazole Magnesium 20mg Capsul es DR 1 by mouth every day 90caps Jun TenaOSolomon Lisinopril 40mg Tablets 1 by mouth every day 90tabs I10 Jun TenaOSolomon 11/19 Nurtec 75mg Tablets Dispers one tablet by mouth once every 24 hours as needed 8tabs Jun MaysO. 10/31/2020 Atorvastatin Calcium 20mg Tablets 1 by mouth every night 90tabs G43.409 Jun TenaOSolomon Alprazolam 0.5mg Tablets take one tablet by mouth every 12 hours as needed istop: [id number] 45tabs Johnny Silva.O. 10/11/2020 Albuterol Sulfate HFA 108(90Base) mcg/Act Aerosol [...] F O2 % BldC Oximetry 98 % [place] Body Weight 100 lb 03/12/2021 8:14am BP Systolic 132 mmHg BP Diastolic 88 mmHg Height 60 inches 5'0" Weight 244.00 lb BMI (Body Mass Index) 47.6 kg/m2 Heart Rate 90 /min Respiratory Rate 18 /min Body Temperature 98.6 F O2 % BldC Oximetry 96 % [place] Body Weight 100 lb Results Test Acquired Date Facility Test Result H/L Range Note Laboratory test finding 04/20/[address] [id number] [phone] Insulin Level 0.8 uIU/mL Low 2.6-24.9 1 Hemoglobin A1c 04/20/2021 [facility] [address] [place] [address] [id number] [phone] Hemoglobin A1c 5.9 % Normal 2 Estimated Average Glucose 123 mg/dL High 60-110 Comprehensive Metabolic Profil 04/20/[address] [id number] [phone] Glucose, Fasting 80 mg/dL Normal 70-100 Blood [...] Ratio 1.1 Low 1.2-2.2 Lipid Panel 04/20/2021 [facility] [address] [place] [address] [phone] Triglycerides Level 90 mg/dL Normal <150 Cholesterol Level 107 mg/dL Normal <200 HDL Cholesterol 41 mg/dL Normal >40 LDL Cholesterol 48 mg/dL Normal <100 Non-HDL-C 66 mg/dL Normal Cholesterol Risk Ratio 2.609 Normal <5 Comprehensive Metabolic Profil 03/02/[address] [address] [phone] Glucose, Fasting 83 mg/dL Normal 70-100 Blood [...] 1.1 Low 1.2-2.2 CBC With Differential 03/02/[address] [address] [phone] White Blood Count 6.1 10 Normal 4.0-10.0 [...] 36.0-66.0 Lymph % 39.4 % Normal 24.0-44.0 [place] % 4.9 % Normal 2.0-8.0 Eos % 2.3 % Normal 0.0-3.0 Baso % 0.5 % Normal 0.0-1.0 Immature Granulocyte % 0.3 % Normal 0-3.0 Nucleated Red Blood Cell % 0.0 % Normal 0-0 Neutrophils # 3.2 10 Normal 1.5-8.5 Lymph # 2.4 10 Normal 1.5-5.0 [place] # 0.3 10 Normal 0.0-0.8 Eos # 0.1 10 Normal 0.0-0.5 Baso # 0.0 10 Normal 0.0-0.2 Lipid Panel 03/02/[address] [address] [phone] Triglycerides Level 112 mg/dL Normal <150 Cholesterol Level 103 mg/dL Normal <200 HDL Cholesterol 39 mg/dL Low >40 LDL Cholesterol 42 mg/dL Normal <100 Non-HDL-C 64 mg/dL Normal Cholesterol Risk Ratio 2.641 Normal <5 FT4&TSH Panel 03/02/[address] [address] [phone] Thyroid Stimulating Hormone 2.040 uIU/ML Normal 0. 358-3.740 Free T4 0.99 ng/dL Normal 0.76-1.46 1 Performed at: RN - [facility] [address] [id number] Dance Therapist: Angeles Torres MD, Phone: [phone] REFERENCE RANGES: <=5.6% NORMAL 5.7-6.4% SUGGESTS IMPAIRED GLUCOSE META BOLISM/PREDIABETIC >= 6.5% ABNORMAL 3 Units are mL/min/1.73 m2 Chronic Kidney Disease Staging per NKF: Stage I & II GFR >=60 Normal to Mildly Decreased Stage III GFR 30-59 Moderately Decreased Stage IV GFR 15-29 Severely Decreased Stage V GFR <15 Very Little GFR Left ESRD GFR <15 on BASKET BRAIDER 4 Units are mL/min/1.73 m2 Chronic Kidney Disease Staging per NKF: Stage I & II GFR >=60 Normal to Mildly Decreased Stage III GFR 30-59 Moderately Decreased Stage IV GFR 15-29 Severely Decreased Stage V GFR <15 Very Little GFR Left ESRD GFR <15 on BASKET BRAIDER Procedures Date Code Description Status 05/06/2021 21400 Office/Outpatient Established Mo d MDM 30-39 Min Completed 03/12/2021 64890 Office/Outpatient Established Mo d MDM 30-39 Min Completed 02/07/2021 12928 Preventive Visit Est 40-64 Yrs C ompleted 02/07/2021 71936 Office/Outpatient Established Lo w MDM 20-29 Min Completed 12/12/2020 [id number] Mammogram Completed 12/03/2020 34593 Office/Outpatient Established Mo d MDM 30-39 Min Completed 11/19/2020 20399 Office/Outpatient Established Mo d MDM 30-39 Min Completed Medical Devices Description No Information Available Encounters Type Date Location Provider Dx Diagnosis Office Visit 05/06/2021 8:30a [facility] Rodolfo Mathews D.O. 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 E88.81 Metabolic syndrome I10 Essential (primary) hyperten sergio J45.20 Mild intermittent asthma, un complicated F17.210 Nicotine dependence, cigaret [place], uncomplicated E78.5 Hyperlipidemia, unspecified Office Visit 02/07/2021 9:40a [facility] Leena Mathews D.O. 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 05/06/2021 Z79.899 Other buttermaker continuous churn (current) drug t herapy Leena Danny-Zenon, D.O. [...] l adult medical examination with abnormal findings Leenajose ButtsDanny-Zenon, D.O. 02/07/2021 I10 Essential (primary) hypertension Leena Danny-Zenon, D.O. 02/07/2021 J45.20 Mild intermittent asthma, uncomp licated Leena Danny-Zenon, D.O. 02/07/2021 F17.210 Nicotine dependence, cigarettes, uncomplicated Leena Danny- Zenon, D.O. 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 02/07/2021 Z79.899 Other buttermaker continuous churn (current) drug t herapy Leena Danny-Zenon, D.O. 02/07/2021 E78.5 Hyperlipidemia, unspecified Leena Danny-Zenon, D.O. 02/07/2021 R60.0 Localized edema Leena Danny-Moe rber, D.O. 02/07/2021 E88.81 Metabolic syndrome Leena Cabrera [...] the reflux persists. Please evaluate and treat. Sent [address] [place] [address] [phone]
--- OUTSIDE RECORDS SUMMARY | 2021-06-01 13:12 | CCD | Continuity of Care Document ---
Author Author Rossi MATHEWS D.O. Organization Unknown Address [address] [place] [address] Phone [phone] Care Team Providers Care Distribution Sales Manager Name Role Phone Leena Mathews D.O. AUTM [phone] Dominic Thornton MD AUTM [phone] Niharika Quiles NP AUTM [phone] [facility] AUTM [phone] Theodore Dorsey M.D. AUTM [phone] Problems Active Problems Provider Date Essential hypertension VADIM Cabrera Onset: 04/12/2019 Mild intermittent asthma VADIM Cabrera Onset: 04/12/20 19 Low tension glaucoma VADIM Cabrera Onset: 04/12/2019 Hyperlipidemia Leena Mathews D.O. Onset: 2020 Social History Type Date Description Comments Sex Unknown Tobacco Use Start: Unknown Light tobacco smoker (10 or fewe r cigarettes/day) Smoking Status Reviewed: 02/07/21 Light tobacco smoker (10 or fewer cigarettes/day) [...] SIG Qnty Indications Ordering Provide r Date Metformin HCL ER 500mg Tablets ER 24HR 2 tablet by mouth every day with dinner 60tabs E88.81 Jun LiOSolomon 02/07/2021 Hydrochlorothiazide 12.5mg Capsule s 1 by mouth as needed for swelling 90caps R60.0 Leena cooley D.O. 02/07/2021 Verapamil HCL 40mg Tablets 1/2 tablets by mouth every 12 hours 90tabs G43.409 Jun TenaOSolomon 12/03/2020 Esomeprazole Magnesium 20mg Capsul es DR 1 by mouth every day 90caps Jun TenaO. Lisinopril 40mg Tablets 1 by mouth every day 90tabs I10 Jun TenaOSolomon 11/19 Nurtec 75mg Tablets Dispers one tablet by mouth once every 24 hours as needed 8tabs Jun MaysOSolomon 10/31/2020 Atorvastatin Calcium 20mg Tablets 1 by mouth every night 90tabs G43.409 Jun TenaO. Aspirin [address] 1 by mouth every day 90tabs G43.409 Jun TenaO. 10/15 Alprazolam 0.5mg Tablets take one tablet by mouth every 12 hours as needed istop: [id number] 45tabs Jun SilvaOSolomon 10/11/2020 Lumigan 0.01% Solution instill 1 drop in each eye once at night Unknown 0 Multi Vitamin Daily Tablets 1 by mouth every day Unknown Albuterol Sulfate HFA 108(90Base) mcg/Act Aerosol 1-2 puffs every 4-6 hours as needed for shortness of breath Unknown History Medications Ketorolac Tromethamine 10mg Tablet s take one tablet by mouth every 8 hours with food by mouth. for max of five days. 15tabs R10.32 Jun TenaOSolomon 10/31/2020 - 11/19/2020 Nicotine Step 2 14mg/24HR Patches 24HR apply one patch on skin once a day, alternate sites 30units Leena Yarbrough D.O. 10/15/2020 - 10/15/2020 Nicotine 14mg/24HR Patches 24HR apply one patch on skin once a day, alternate sites 30units Jun EcheverriaO. 10/15/2020 - 02/07/2021 Butalbital/Acetaminophen/Caffeine 50-325-40mg Tablets take one tablet every 8 hours as needed for headaches. 60tab s G43.409 Jun TenaO. 10/15/2020 - 10/31/2020 Echocardiogram Symptom: dyspnea on exertion, hx of [...] hours as needed for pain 28tabs M25.551 Jun SilvaO. 09/19/2020 - 10/15/2020 Naproxen 500mg Tablets take one tab with food twice a day as needed 180tabs M25.551 Leena Mathews D.O. 09/19/2020 - 10/15/2020 Medications Administered in Office Medication SIG Qnty Indications Ordering Provider Date Injection Ketorolac Tromethamine Per 15 MG (Toradol) Injection VADIM Wilson 10/31/2020 Injection Ketorolac Tromethamine Per 15 MG (Toradol) Injection VADIM Wilson 09/19/2020 Immunizations Description No Information Available Vital Signs Date Vital Result Comment 02/07/2021 9:22am BP Systolic 148 mmHg BP Diastolic 86 mmHg Height 60 inches 5'0" Weight 246.00 lb BMI (Body Mass Index) 48.0 kg/m2 Heart Rate 74 /min Respiratory Rate 18 /min Body Temperature 97.9 F O2 % BldC Oximetry 97 % [place] Body Weight 100 lb 12/03/2020 10:06am BP Systolic 128 mmHg BP Diastolic 82 mmHg Height 60 inches 5'0" Weight 248.38 lb BMI (Body Mass Index) 48.5 kg/m2 Heart Rate 99 /min Respiratory Rate 18 /min Body Temperature 99.4 F O2 % BldC Oximetry 97 % [place] Body Weight 100 lb Results Test Acquired Date Facility Test Result H/L Range Note CBC With Differential 03/02/[address] [address] [phone] White Blood Count 6.1 10 Normal 4.0-10.0 [...] 36.0-66.0 Lymph % 39.4 % Normal 24.0-44.0 [place] % 4.9 % Normal 2.0-8.0 Eos % 2.3 % Normal 0.0-3.0 Baso % 0.5 % Normal 0.0-1.0 Immature Granulocyte % 0.3 % Normal 0-3.0 Nucleated Red Blood Cell % 0.0 % Normal 0-0 Neutrophils # 3.2 10 Normal 1.5-8.5 Lymph # 2.4 10 Normal 1.5-5.0 [place] # 0.3 10 Normal 0.0-0.8 Eos # 0.1 10 Normal 0.0-0.5 Baso # 0.0 10 Normal 0.0-0.2 Lipid Panel 03/02/2021 [facility] [address] [place] [address] [phone] Triglycerides Level 112 mg/dL Normal <150 Cholesterol Level 103 mg/dL Normal <200 HDL Cholesterol 39 mg/dL Low >40 LDL Cholesterol 42 mg/dL Normal <100 Non-HDL-C 64 mg/dL Normal Cholesterol Risk Ratio 2.641 Normal <5 FT4&TSH Panel 03/02/2021 [facility] [address] [place] [address] [phone] Thyroid Stimulating Hormone 2.040 uIU/ML Normal 0. 358-3.740 Free T4 0.99 ng/dL Normal 0.76-1.46 Comprehensive Metabolic Profil 03/02/[address] [address] [phone] Glucose, Fasting 83 mg/dL Normal 70-100 Blood [...] 1.1 Low 1.2-2.2 Istat Chem8+ Panel 11/01/2020 [facility] Outpatient Testi ng (Registration) [address] [place] [address] [phone] iSTAT HCT 39.0 % Normal 38.0-51.0 iSTAT Glucose 71 mg/dL Normal 70-105 iSTAT Sodium 141 mEq/L Normal 136-145 iSTAT Potassium 4.5 mEq/L Normal 3.5-5.1 iSTAT CA++ 4.7 mg/dL Normal 4.5-5.3 iSTAT Chloride 109 mEq/L Normal 98-109 iSTAT Co2 27.0 MM/L Normal 23.0-27.0 iSTAT BUN 7 mg/dL Low 8-26 iSTAT Creatinine 0.6 mg/dL Normal 0.6-1.3 CBC With Differential 11/01/2020 [facility] Outpatient [place] (Registration) [address] [place] [address] [phone] White Blood Count 10.4 10 High 4.0-10.0 [...] 36.0-66.0 Lymph % 19.1 % Low 24.0-44.0 [place] % 6.0 % Normal 2.0-8.0 Eos % 1.5 % Normal 0.0-3.0 Baso % 0.2 % Normal 0.0-1.0 Immature Granulocyte % 0.3 % Normal 0-3.0 Nucleated Red Blood Cell % 0.0 % Normal 0-0 Neutrophils # 7.6 10 Normal 1.5-8.5 Lymph # 2.0 10 Normal 1.5-5.0 [place] # 0.6 10 Normal 0.0-0.8 Eos # 0.2 10 Normal 0.0-0.5 Baso # 0.0 10 Normal 0.0-0.2 Liver Profile 11/01/2020 [facility] Outpatient Testi ng (Registration) [address] [place] [address] [phone] Ast/Sgot 29 U/L Normal 7-37 Alt/SGPT 24 U/L Normal 12-78 Alkaline Phosphatase 83 U/L Normal 45-117 Bilirubin,Total 0.2 mg/dL Normal 0.2-1.0 Bilirubin,Direct < 0.1 mg/dL Normal 0.0-0.2 Total Protein 6.7 GM/DL Normal 6.4-8.2 Albumin 3.5 GM/DL Normal 3.2-5.2 Albumin/Globulin Ratio 1.1 Low 1.2-2.2 Laboratory test finding 11/01/2020 [facility] Outpatient T elvia (Registration) [address] [place] [address] [phone] Lipase 121 U/L Normal 73-393 Inhouse Ua 10/31/2020 Inhouse Inhouse Leukocytes trace Inhouse Nitrite neg Inhouse Urobilinogen neg Inhouse Protein neg Inhouse PH 7 Inhouse Hemoglobin neg Inhouse Specific [place] 1.010 Inhouse Ketones neg Inhouse Bilirubin neg Inhouse Glucose neg Laboratory test finding 10/31/2020 [facility] [address] [place] [address] [phone] Urine Culture FULL REPORT IN L <SEE NOTE> Normal 2 CBC With Differential 10/09/2020 [facility] Outpatient [place] (Registration) [address] [place] [address] [phone] White Blood Count 6.8 10 Normal 4.0-10.0 [...] 36.0-66.0 Lymph % 28.7 % Normal 24.0-44.0 [place] % 5.9 % Normal 2.0-8.0 Eos % 1.8 % Normal 0.0-3.0 Baso % 0.4 % Normal 0.0-1.0 Immature Granulocyte % 0.4 % Normal 0-3.0 Nucleated Red Blood Cell % 0.0 % Normal 0-0 Neutrophils # 4.3 10 Normal 1.5-8.5 Lymph # 2.0 10 Normal 1.5-5.0 [place] # 0.4 10 Normal 0.0-0.8 Eos # 0.1 10 Normal 0.0-0.5 Baso # 0.0 10 Normal 0.0-0.2 Laboratory test finding 10/09/2020 [facility] Outpatient T esting (Registration) [address] [place] [address] [phone] Partial Thromboplastin Time 28.3 seconds Normal 24 .2-38.5 Prothrombin Time/Inr 10/09/2020 [facility] Outpatient Test ing (Registration) [address] [place] [address] [phone] Prothrombin Time 12.9 seconds Normal 12.5-14.3 Inr 0.95 Normal 3 Laboratory test finding 10/09/2020 [facility] Outpatient T esting (Registration) [address] [place], [place] [address] [phone] HCG Serum Qualitative NEGATIVE Normal Negative Basic Metabolic Profile 10/09/2020 [facility] Outpatient T esting (Registration) [address] [place], [place] [address] [phone] Glucose, Fasting 90 mg/dL Normal 70-100 Blood [...] 8.5 mg/dL Normal 8.5-10.1 Liver Profile 10/09/2020 [facility] Outpatient Testi ng (Registration) [address] [place] [address] [phone] Ast/Sgot 10 U/L Normal 7-37 Alt/SGPT 23 U/L Normal 12-78 Alkaline Phosphatase 73 U/L Normal 45-117 Bilirubin,Total 0.2 mg/dL Normal 0.2-1.0 Bilirubin,Direct < 0.1 mg/dL Normal 0.0-0.2 Total Protein 6.8 GM/DL Normal 6.4-8.2 Albumin 3.5 GM/DL Normal 3.2-5.2 Albumin/Globulin Ratio 1.1 Low 1.2-2.2 Cardiac Marker Panel 10/09/2020 [facility] Outpatient Test ing (Registration) [address] [place] [address] [phone] CPK Creatine Phosphokinase 56 U/L Normal 26-19 2 CK-MB Value Mass < 1.0 NG/ML Normal <3.6 MB/CK Relative Index 1.79 Normal < Or =4 5 Troponin I < 0.02 NG/ML Normal < 0.10 6 CBC With Differential 10/06/2020 [facility] Outpatient [place] ting (Registration) [address] [place] [address] [phone] White Blood Count 7.9 10 Normal 4.0-10.0 [...] 36.0-66.0 Lymph % 36.2 % Normal 24.0-44.0 [place] % 5.8 % Normal 2.0-8.0 Eos % 2.1 % Normal 0.0-3.0 Baso % 0.5 % Normal 0.0-1.0 Immature Granulocyte % 0.4 % Normal 0-3.0 Nucleated Red Blood Cell % 0.0 % Normal 0-0 Neutrophils # 4.4 10 Normal 1.5-8.5 Lymph # 2.9 10 Normal 1.5-5.0 [place] # 0.5 10 Normal 0.0-0.8 Eos # 0.2 10 Normal 0.0-0.5 Baso # 0.0 10 Normal 0.0-0.2 Basic Metabolic Profile 10/06/2020 [facility] Outpatient T esting (Registration) [address] [place] [address] [phone] Glucose, Fasting 106 mg/dL High 70-100 Blood [...] Little GFR Left ESRD GFR <15 on NIP WRAPPER 2 FULL REPORT IN LAB NOTES (eC [...] Little GFR Left ESRD GFR <15 on NIP WRAPPER 5 DIAGNOSIS CRITERIA MMB ng/ml Relative Index (RI) NON-AMI < or = 5 N/A ADAMS ZONE > 5 < or = 4 AMI > 5 > 4 6 Troponin I Reference Interva l for Siemens [employer] LOCI: 99th Percentile= 0.00-0.045 ng/ml Risk Stratification: [...] Little GFR Left ESRD GFR <15 on NIP WRAPPER Procedures Date Code Description Status 02/07/2021 66011 Preventive Visit Est 40-64 Yrs C ompleted 02/07/2021 19946 Office/Outpatient Established Lo w MDM 20-29 Min Completed 12/12/2020 33101634 Mammogram Completed 12/03/2020 94868 Office/Outpatient Established Mo d MDM 30-39 Min Completed 11/19/2020 55667 Office/Outpatient Established Mo d MDM 30-39 Min Completed 10/31/2020 45479 Office/Outpatient Established Mo d MDM 30-39 Min Completed 10/15/2020 40544 Garza Cre W/I 7 Days Of DC, Comm W/I 2 Dys Completed 10/15/2020 08429 Smoking & Tobacco Ce ssation Counseling Visit Intermediate 3-10Min Completed 09/19/2020 15276 Office/Outpatient Established Lo w MDM 20-29 Min Completed Medical Devices Description No Information Available Encounters Type Date Location Provider Dx Diagnosis Office Visit 02/07/2021 9:40a [facility] Leena Mathews D.O. 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 Low-tension glaucoma, bilate ral, mild stage Z79.899 Other fdc (current) dr heath therapy E78.5 Hyperlipidemia, unspecified R60.0 Localized edema E88.81 Metabolic syndrome Office Visit 12/03/2020 10:20a [facility] VADIM Cabrera I10 Essential (primary) hyperten sergio G43.409 Hemiplegic migraine, not int ractable, w/o status migrainosus J45.20 Mild intermittent asthma, un complicated F41.1 Generalized anxiety disorder Z12.31 Encntr screen mammogram for malignant neoplasm of breast Office Visit 11/19/2020 1:00p [facility] VADIM Cabrera I10 Essential (primary) hyperten sergio G43.409 Hemiplegic migraine, not int ractable, w/o status migrainosus J45.20 Mild intermittent asthma, un complicated F41.1 Generalized anxiety disorder Office Visit 10/31/2020 9:40a [facility] VADIM Cabrera G43.409 Hemiplegic migraine, not int ractable, w/o status migrainosus I10 Essential (primary) hyperten sergio R10.32 Left lower quadrant pain Office Visit 10/15/2020 8:45a [facility] VADIM Cabrera G43.409 Hemiplegic migraine, not int ractable, w/o status migrainosus I10 Essential (primary) hyperten sergio F17.210 Nicotine dependence, cigaret [place], uncomplicated Office Visit 09/19/2020 1:00p [facility] VADIM Cabrera M25.551 Pain in right hip Assessments Date Code Description Provider 02/07/2021 Z00.01 Encounter for genera l adult medical examination with abnormal findings Leena Mathews, D.O. 02/07/2021 I10 Essential (primary) hypertension Leena Mathews, D.O. 02/07/2021 J45.20 Mild intermittent asthma, uncomp licated Leena Mathews, D.O. 02/07/2021 F17.210 Nicotine dependence, cigarettes, uncomplicated Leena Yarbrough, D.O. 02/07/2021 H40.1231 Low-tension glaucoma, bilateral, mild stage Leena Yarbrough, D.O. 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 02/07/2021 E78.5 Hyperlipidemia, unspecified Leena Mathews, D.O. 02/07/2021 R60.0 Localized edema Leena echeverria D.O. 02/07/2021 E88.81 Metabolic syndrome Leena Cabrera D.O. 12/03/2020 I10 Essential (primary) hypertension VADIM Cabrera 12/03/2020 G43.409 Hemiplegic migraine, not intractable, without status migrainosus VADIM Cabrera 12/03/2020 J45.20 Mild intermittent asthma, uncomp licated VADIM Cabrera 12/03/2020 F41.1 Generalized anxiety disorder [facility] VADIM Gaona 12/03/2020 Z12.31 Encounter for screen ing mammogram for malignant neoplasm of breast VADIM Cabrera 11/19/2020 I10 Essential (primary) hypertension VADIM Cabrera 11/19/2020 G43.409 Hemiplegic migraine, not intractable, without status migrainosus VADIM Cabrera 11/19/2020 J45.20 Mild intermittent asthma, uncomp licated VADIM Cabrera 11/19/2020 F41.1 Generalized anxiety disorder [facility] VADIM Gaona 10/31/2020 G43.409 Hemiplegic migraine, not intractable, without status migrainosus VADIM Cabrera 10/31/2020 I10 Essential (primary) hypertension VADIM Cabrera 10/31/2020 R10.32 Left lower quadrant pain VADIM Cabrera 10/15/2020 G43.409 Hemiplegic migraine, not intractable, without status migrainosus AVDIM Cabrera 10/15/2020 I10 Essential (primary) hypertension VADIM Cabrera 10/15/2020 F17.210 Nicotine dependence, cigarettes, uncomplicated VADIM Cabrera 09/19/2020 M25.551 Pain in right hip VADIM Christianson Plan of Treatment Future Appointment(s):* 03/12/2021 8:20 am - Leena Mathews D.O. at [facility] Functional Status Description No Information Available Mental Status Description No Information Available Referrals Refer to Reason for Referral Status Appt Date Theodore Dorsey M.D. Hemiplegic migraines which r equired observation admission in the hospital due to concern about possible TIA. Please evaluate and treat. has a history of HTN which we are currently treating. Closed 09/2020 [facility] [address], [place] [address] [phone] [facility] right hip and groin pain wit h pain radiating down right lower extremity Closed [address] [place] [address] [phone]
--- OUTSIDE RECORDS SUMMARY | 2021-06-01 13:12 | CCD | Continuity of Care Document ---
Author Author Rossi MTAHEWS D.O. Organization Unknown Address [address] [place] [address] Phone [phone] Care Team Providers Care Packaging Design Engineer Name Role Phone Leena Mathews D.O. AUTM Dominic Thornton MD AUTM [phone] Niharika Quiles NP AUTM [phone] [facility] AUTM [phone] Theodore Dorsey M.D. AUTM [phone] Problems Active Problems Provider Date Essential hypertension [...] mouth every 12 hours as needed istop: [id number] 45tabs Leena Yarbrough D.O. 10/11/2020 Albuterol Sulfate [...] F O2 % BldC Oximetry 96 % [place] Body Weight 100 lb 02/07/2021 9:22am BP Systolic 148 mmHg BP Diastolic 86 mmHg Height 60 inches 5'0" Weight 246.00 lb BMI (Body Mass Index) 48.0 kg/m2 Heart Rate 74 /min Respiratory Rate 18 /min Body Temperature 97.9 F O2 % BldC Oximetry 97 % [place] Body Weight 100 lb Results Test Acquired Date Facility Test Result H/L Range Note CBC With Differential 03/02/[address] [address] [phone] White Blood Count 6.1 10 Normal 4.0-10.0 [...] 36.0-66.0 Lymph % 39.4 % Normal 24.0-44.0 [place] % 4.9 % Normal 2.0-8.0 Eos % 2.3 % Normal 0.0-3.0 Baso % 0.5 % Normal 0.0-1.0 Immature Granulocyte % 0.3 % Normal 0-3.0 Nucleated Red Blood Cell % 0.0 % Normal 0-0 Neutrophils # 3.2 10 Normal 1.5-8.5 Lymph # 2.4 10 Normal 1.5-5.0 [place] # 0.3 10 Normal 0.0-0.8 Eos # 0.1 10 Normal 0.0-0.5 Baso # 0.0 10 Normal 0.0-0.2 Lipid Panel 03/02/2021 [facility] nter [address] [place] [address] [phone] Triglycerides Level 112 mg/dL Normal <150 Cholesterol Level 103 mg/dL Normal <200 HDL Cholesterol 39 mg/dL Low >40 LDL Cholesterol 42 mg/dL Normal <100 Non-HDL-C 64 mg/dL Normal Cholesterol Risk Ratio 2.641 Normal <5 FT4&TSH Panel 03/02/2021 [facility] nter [address] [place] [address] [phone] Thyroid Stimulating Hormone 2.040 uIU/ML Normal 0. 358-3.740 Free T4 0.99 ng/dL Normal 0.76-1.46 Comprehensive Metabolic Profil 03/02/[address] [address] [phone] Glucose, Fasting 83 mg/dL Normal 70-100 Blood [...] 1.1 Low 1.2-2.2 Istat Chem8+ Panel 11/01/2020 [facility] Outpatient Testi ng (Registration) [address] [place] [address] [phone] iSTAT HCT 39.0 % Normal 38.0-51.0 iSTAT Glucose 71 mg/dL Normal 70-105 iSTAT Sodium 141 mEq/L Normal 136-145 iSTAT Potassium 4.5 mEq/L Normal 3.5-5.1 iSTAT CA++ 4.7 mg/dL Normal 4.5-5.3 iSTAT Chloride 109 mEq/L Normal 98-109 iSTAT Co2 27.0 MM/L Normal 23.0-27.0 iSTAT BUN 7 mg/dL Low 8-26 iSTAT Creatinine 0.6 mg/dL Normal 0.6-1.3 CBC With Differential 11/01/2020 [facility] Outpatient [place] ting (Registration) [address] [place] [address] [phone] White Blood Count 10.4 10 High 4.0-10.0 [...] 36.0-66.0 Lymph % 19.1 % Low 24.0-44.0 [place] % 6.0 % Normal 2.0-8.0 Eos % 1.5 % Normal 0.0-3.0 Baso % 0.2 % Normal 0.0-1.0 Immature Granulocyte % 0.3 % Normal 0-3.0 Nucleated Red Blood Cell % 0.0 % Normal 0-0 Neutrophils # 7.6 10 Normal 1.5-8.5 Lymph # 2.0 10 Normal 1.5-5.0 [place] # 0.6 10 Normal 0.0-0.8 Eos # 0.2 10 Normal 0.0-0.5 Baso # 0.0 10 Normal 0.0-0.2 Liver Profile 11/01/2020 [facility] Outpatient Testi ng (Registration) [address] [place] [address] [phone] Ast/Sgot 29 U/L Normal 7-37 Alt/SGPT 24 U/L Normal 12-78 Alkaline Phosphatase 83 U/L Normal 45-117 Bilirubin,Total 0.2 mg/dL Normal 0.2-1.0 Bilirubin,Direct < 0.1 mg/dL Normal 0.0-0.2 Total Protein 6.7 GM/DL Normal 6.4-8.2 Albumin 3.5 GM/DL Normal 3.2-5.2 Albumin/Globulin Ratio 1.1 Low 1.2-2.2 Laboratory test finding 11/01/2020 [facility] Outpatient T el[place] (Registration) [address] [place] [address] [phone] Lipase 121 U/L Normal 73-393 Inhouse Ua 10/31/2020 Inhouse Inhouse Leukocytes trace Inhouse Nitrite neg Inhouse Urobilinogen neg Inhouse Protein neg Inhouse PH 7 Inhouse Hemoglobin neg Inhouse Specific [place] 1.010 Inhouse Ketones neg Inhouse Bilirubin neg Inhouse Glucose neg Laboratory test finding 10/31/[address] [address] [phone] Urine Culture FULL REPORT IN L <SEE NOTE> Normal 2 CBC With Differential 10/09/2020 [facility] Outpatient [place] (Registration) [address] [place] [address] [phone] White Blood Count 6.8 10 Normal 4.0-10.0 [...] 36.0-66.0 Lymph % 28.7 % Normal 24.0-44.0 [place] % 5.9 % Normal 2.0-8.0 Eos % 1.8 % Normal 0.0-3.0 Baso % 0.4 % Normal 0.0-1.0 Immature Granulocyte % 0.4 % Normal 0-3.0 Nucleated Red Blood Cell % 0.0 % Normal 0-0 Neutrophils # 4.3 10 Normal 1.5-8.5 Lymph # 2.0 10 Normal 1.5-5.0 [place] # 0.4 10 Normal 0.0-0.8 Eos # 0.1 10 Normal 0.0-0.5 Baso # 0.0 10 Normal 0.0-0.2 Laboratory test finding 10/09/2020 [facility] Outpatient T esting (Registration) [address] [place] [address] [phone] Partial Thromboplastin Time 28.3 seconds Normal 24 .2-38.5 Prothrombin Time/Inr 10/09/2020 [facility] Outpatient Test ing (Registration) [address] [place], [place] [address] [phone] Prothrombin Time 12.9 seconds Normal 12.5-14.3 Inr 0.95 Normal 3 Laboratory test finding 10/09/2020 [facility] Outpatient T esting (Registration) [address] [place] [address] [phone] HCG Serum Qualitative NEGATIVE Normal Negative Basic Metabolic Profile 10/09/2020 [facility] Outpatient T esting (Registration) [address] [place] [address] [phone] Glucose, Fasting 90 mg/dL Normal 70-100 Blood [...] 8.5 mg/dL Normal 8.5-10.1 Liver Profile 10/09/2020 [facility] Outpatient Testi ng (Registration) [address] [place] [address] [phone] Ast/Sgot 10 U/L Normal 7-37 Alt/SGPT 23 U/L Normal 12-78 Alkaline Phosphatase 73 U/L Normal 45-117 Bilirubin,Total 0.2 mg/dL Normal 0.2-1.0 Bilirubin,Direct < 0.1 mg/dL Normal 0.0-0.2 Total Protein 6.8 GM/DL Normal 6.4-8.2 Albumin 3.5 GM/DL Normal 3.2-5.2 Albumin/Globulin Ratio 1.1 Low 1.2-2.2 Cardiac Marker Panel 10/09/2020 [facility] Outpatient Test ing (Registration) [address] [place] [address] [phone] CPK Creatine Phosphokinase 56 U/L Normal 26-19 2 CK-MB Value Mass < 1.0 NG/ML Normal <3.6 MB/CK Relative Index 1.79 Normal < Or =4 5 Troponin I < 0.02 NG/ML Normal < 0.10 6 CBC With Differential 10/06/2020 [facility] Outpatient [place] ting (Registration) [address] [place] [address] [phone] White Blood Count 7.9 10 Normal 4.0-10.0 [...] 36.0-66.0 Lymph % 36.2 % Normal 24.0-44.0 [place] % 5.8 % Normal 2.0-8.0 Eos % 2.1 % Normal 0.0-3.0 Baso % 0.5 % Normal 0.0-1.0 Immature Granulocyte % 0.4 % Normal 0-3.0 Nucleated Red Blood Cell % 0.0 % Normal 0-0 Neutrophils # 4.4 10 Normal 1.5-8.5 Lymph # 2.9 10 Normal 1.5-5.0 [place] # 0.5 10 Normal 0.0-0.8 Eos # 0.2 10 Normal 0.0-0.5 Baso # 0.0 10 Normal 0.0-0.2 Basic Metabolic Profile 10/06/2020 [facility] Outpatient T elvia (Registration) [address] [place] [address] [phone] Glucose, Fasting 106 mg/dL High 70-100 Blood [...] Little GFR Left ESRD GFR <15 on CUSTOM BOOKBINDER 2 FULL REPORT IN LAB NOTES (eC [...] Little GFR Left ESRD GFR <15 on CUSTOM BOOKBINDER 5 DIAGNOSIS CRITERIA MMB ng/ml Relative Index (RI) NON-AMI < or = 5 N/A ADAMS ZONE > 5 < or = 4 AMI > 5 > 4 6 Troponin I Reference Interva l for SKINNYprice LOCI: 99th Percentile= 0.00-0.045 ng/ml Risk Stratification: [...] Little GFR Left ESRD GFR <15 on CUSTOM BOOKBINDER Procedures Date Code Description Status 03/12/2021 30903 Office/Outpatient Established Mo d MDM 30-39 Min Completed 02/07/2021 40499 Preventive Visit Est 40-64 Yrs C ompleted 02/07/2021 15227 Office/Outpatient Established Lo w MDM 20-29 Min Completed 12/12/2020 [id number] Mammogram Completed 12/03/2020 60741 Office/Outpatient Established Mo d MDM 30-39 Min Completed 11/19/2020 58659 Office/Outpatient Established Mo d MDM 30-39 Min Completed 10/31/2020 97374 Office/Outpatient Established Mo d MDM 30-39 Min Completed 10/15/2020 94029 Garza Cre W/I 7 Days Of DC, Comm W/I 2 Dys Completed 10/15/2020 35812 Smoking & Tobacco Ce ssation Counseling Visit Intermediate 3-10Min Completed 09/19/2020 97936 Office/Outpatient Established Lo w MDM 20-29 Min Completed Medical Devices Description No Information Available Encounters Type Date Location Provider Dx Diagnosis Office Visit 03/12/2021 8:20a [facility] Johnny Jeffery.O. E88.81 Metabolic syndrome I10 Essential (primary) hyperten sergio J45.20 Mild intermittent asthma, un complicated F17.210 Nicotine dependence, cigaret [place], uncomplicated E78.5 Hyperlipidemia, unspecified Office Visit 02/07/2021 9:40a [facility] Jun JefferyO. 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 Low-tension glaucoma, bilate ral, mild stage Z79.899 Other skilled nursing (current) dr kumar england E78.5 Hyperlipidemia, unspecified R60.0 Localized edema E88.81 Metabolic syndrome Office Visit 12/03/2020 10:20a [facility] VDAIM Richards I10 Essential (primary) hyperten sergio G43.409 Hemiplegic migraine, not int ractable, w/o status migrainosus J45.20 Mild intermittent asthma, un complicated F41.1 Generalized anxiety disorder Z12.31 Encntr screen mammogram for malignant neoplasm of breast Office Visit 11/19/2020 1:00p [facility] VADIM Cabrera I10 Essential (primary) hyperten sergio G43.409 Hemiplegic migraine, not int ractable, w/o status migrainosus J45.20 Mild intermittent asthma, un complicated F41.1 Generalized anxiety disorder Office Visit 10/31/2020 9:40a [facility] VADIM Cabrera G43.409 Hemiplegic migraine, not int ractable, w/o status migrainosus I10 Essential (primary) hyperten sergio R10.32 Left lower quadrant pain Office Visit 10/15/2020 8:45a [facility] VADIM Cabrera G43.409 Hemiplegic migraine, not int ractable, w/o status migrainosus I10 Essential (primary) hyperten sergio F17.210 Nicotine dependence, cigaret [place], uncomplicated Office Visit 09/19/2020 1:00p [facility] VADIM Cabrera M25.551 Pain in right hip [...] stage Leena Yarbrough, D.O. 02/07/2021 Z79.899 Other skilled nursing (current) drug t herapy Leena Mathews, D.O. [...] VADIM Cabrera 10/15/2020 I10 Essential (primary) hypertension VADMI Cabrera 10/15/2020 F17.210 Nicotine dependence, cigarettes, uncomplicated VADIM Cabrera 09/19/2020 M25.551 Pain in right hip VADIM Christianson Plan of Treatment No Information Available Functional Status Description No Information Available Mental Status Description No Information Available Referrals Refer to Reason for Referral Status Appt Date Theodore Dorsey M.D. Hemiplegic migraines which r equired observation admission in the hospital due to concern about possible TIA. Please evaluate and treat. has a history of HTN which we are currently treating. Closed 09/2020 [facility] [address], [place] [address] [phone] [facility] right hip and groin pain wit h pain radiating down right lower extremity [address] [place] [address] [phone]
--- OUTSIDE RECORDS SUMMARY | 2021-06-01 13:13 | CCD ---
Author Author [facility] Organization [facility] Address Unknown Phone Unavailable Care Team Providers Care Museum Guide Name Role Phone Feola, T Dilma PA Unavailable Unavailable Feola, T Dilma PA Unavailable Unavailable Feola, T Dilma PA Unavailable Unavailable Feola, T Dilma PA Unavailable Unavailable Feola, T Dilma PA Unavailable Unavailable Feola, T Dilma PA Unavailable Unavailable Feola, T Dilma PA Unavailable Unavailable Feola, T Dilma PA Unavailable Unavailable Feola, T Dilma PA Unavailable Unavailable Feola, T Dilma PA Unavailable Unavailable Feola, T Dilma PA Unavailable Unavailable Feola, T Dilma PA Unavailable Unavailable Feola, T Dilma PA Unavailable Unavailable Feola, T Dilma PA Unavailable Unavailable Feola, T Dilma PA Unavailable Unavailable Feola, T Dilma PA Unavailable Unavailable Feola, T Dilma PA Unavailable Unavailable Feola, T Dilma PA Unavailable Unavailable Feola, T Dilma PA Unavailable Unavailable Feola, T Dilma PA Unavailable Unavailable Feola, T Dilma PA Unavailable Unavailable Feola, T Dilma PA Unavailable Unavailable Feola, T Dilma PA Unavailable Unavailable Feola, T Dilma PA Unavailable Unavailable Feola, T Dilma PA Unavailable Unavailable Feola, T Dilma PA Unavailable Unavailable Feola, T Dilma PA Unavailable Unavailable Feola, T Dilma PA Unavailable Unavailable Feola, T Dilma PA Unavailable Unavailable Feola, T Dilma PA Unavailable Unavailable Feola, T Dilma PA Unavailable Unavailable Feola, T Dilma PA Unavailable Unavailable Feola, T Dilma PA Unavailable Unavailable Feola, T Dilma PA Unavailable Unavailable Feola, T Dilma PA Unavailable Unavailable Feola, T Dilma PA Unavailable Unavailable Feola, T Dilma PA Unavailable Unavailable Feola, T Dilma PA Unavailable Unavailable Feola, T Dilma PA Unavailable Unavailable Feola, T Dilma PA Unavailable Unavailable Feola, T Dilma PA Unavailable Unavailable TONY-ELIGIO, SARANYA DO Unavailable Unavailable TONY-ELIGIO, SARANYA DO Unavailable Unavailable TONY-ELIGIO, SARANYA DO Unavailable Unavailable TONY-ELIGIO, SARANYA DO Unavailable Unavailable TONY-ELIGIO, SARANYA DO Unavailable Unavailable TONY-ELIGIO, SARANYA DO Unavailable Unavailable TONY-ELIGIO, SARANYA DO Unavailable Unavailable TONY-ELIGIO, SARANYA DO Unavailable Unavailable TONY-ELIGIO, SARANYA DO Unavailable Unavailable TONY-ELIGIO, SARANYA DO Unavailable Unavailable TONY-ELIGIO, SARANYA DO Unavailable Unavailable TONY-ELIGIO, SARANYA DO Unavailable Unavailable TONY-ELIGIO, SARANYA DO Unavailable Unavailable TONY-ELIGIO, SARANYA DO Unavailable Unavailable TONY-ELIGIO, SARANYA DO Unavailable Unavailable TONY-ELIGIO, SARANYA DO Unavailable Unavailable TONY-ELIGIO, SARANYA DO Unavailable Unavailable TONY-ELIGIO, SARANYA DO Unavailable Unavailable TONY-ELIGIO, SARANYA DO Unavailable Unavailable TONY-ELIGIO, SARANYA DO Unavailable Unavailable TONY-ELIGIO, SARANYA DO Unavailable Unavailable TONY-ELIGIO, SARANYA DO Unavailable Unavailable TONY-ELIGIO, SARANYA DO Unavailable Unavailable TONY-ELIGIO, SARANYA DO Unavailable Unavailable TONY-ELIGIO, SARANYA DO Unavailable Unavailable TONY-ELIGIO, SARANYA DO Unavailable Unavailable TONY-ELIGIO, SARANYA DO Unavailable Unavailable TONY-ELIGIO, SARANYA DO Unavailable Unavailable TONY-ELIGIO, SARANYA DO Unavailable Unavailable TONY-ELIGIO, SARANYA DO Unavailable Unavailable TONY-ELIGIO, SARANYA DO Unavailable Unavailable TONY-ELIGIO, SARANYA DO Unavailable Unavailable TONY-ELIGIO, SARANYA DO Unavailable Unavailable TONY-ELIGIO, SARANYA DO Unavailable Unavailable TONY-ELIGIO, SARANYA DO Unavailable Unavailable TONY-ELIGIO, SARANYA DO Unavailable Unavailable TONY-ELIGIO, SARANYA DO Unavailable Unavailable TONY-ELIGIO, SARANYA DO Unavailable Unavailable TONY-ELIGIO, SARANYA DO Unavailable Unavailable TONY-ELIGIO, SARANYA DO Unavailable Unavailable TONY-ELIGIO, SARANYA DO Unavailable Unavailable TONY-ELIGIO, SARANYA DO Unavailable Unavailable TONY-ELIGIO, SARANYA DO Unavailable Unavailable TONY-ELIGIO, SARANYA DO Unavailable Unavailable TONY-ELIGIO, SARANYA DO Unavailable Unavailable TONY-ELIGIO, SARANYA DO Unavailable Unavailable TONY-ELIGIO, SARANYA DO Unavailable Unavailable TONY-ELIGIO, SARANYA DO Unavailable Unavailable TONY-ELIGIO, SARANYA DO Unavailable Unavailable TONY-ELIGIO, SARANYA DO Unavailable Unavailable TONY-ELIGIO, SARANYA DO Unavailable Unavailable TONY-ELIGIO, SARANYA DO Unavailable Unavailable TONY-ELIGIO, SARANYA DO Unavailable Unavailable TONY-ELIGIO, SARANYA DO Unavailable Unavailable TONY-ELIGIO, SARANYA DO Unavailable Unavailable TONY-ELIGIO, SARANYA DO Unavailable Unavailable TONY-ELIGIO, SARANYA DO Unavailable Unavailable TONY-ELIGIO, SARANYA DO Unavailable Unavailable TONY-ELIGIO, SARANYA DO Unavailable Unavailable TONY-ELIGIO, SARANYA DO Unavailable Unavailable TONY-ELIGIO, SARANYA DO Unavailable Unavailable TONY-ELIGIO, SARANYA DO Unavailable Unavailable TONY-ELIGIO, SARANYA DO Unavailable Unavailable TONY-ELIGIO, SARANYA DO Unavailable Unavailable TONY-ELIGIO, SARANYA DO Unavailable Unavailable TONY-ELIGIO, SARANYA DO Unavailable Unavailable TONY-ELIGIO, SARANYA DO Unavailable Unavailable TONY-ELIGIO, SARANYA DO Unavailable Unavailable TONY-ELIGIO, SARANYA DO Unavailable Unavailable TONY-ELIGIO, SARANYA DO Unavailable Unavailable TONY-ELIGIO, SARANYA DO Unavailable Unavailable TONY-ELIGIO, SARANYA DO Unavailable Unavailable TONY-ELIGIO, SARANYA DO Unavailable Unavailable TONY-ELIGIO, SARANYA DO Unavailable Unavailable TONY-ELIGIO, SARANYA DO Unavailable Unavailable TONY-ELIGIO, SARANYA DO Unavailable Unavailable TONY-ELIGIO, SARANYA DO Unavailable Unavailable TONY-ELIGIO, SARANYA DO Unavailable Unavailable TONY-ELIGIO, SARANYA DO Unavailable Unavailable TONY-ELIGIO, SARANYA DO Unavailable Unavailable TONY-ELIGIO, SARANYA DO Unavailable Unavailable TONY-ELIGIO, SARANYA DO Unavailable Unavailable TONY-ELIGIO, SARANYA DO Unavailable Unavailable TONY-ELIGIO, SARANYA DO Unavailable Unavailable O'madison, A Irwin PA Unavailable Unavailable O'madison, A Irwin PA Unavailable Unavailable O'madison, A Irwin PA Unavailable Unavailable O'madison, A Irwin PA Unavailable Unavailable O'madison, A Irwin PA Unavailable Unavailable O'madison, A Irwin PA Unavailable Unavailable O'madison, A Irwin PA Unavailable Unavailable O'madison, A Irwin PA Unavailable Unavailable O'madison, A Irwin PA Unavailable Unavailable O'madison, A Irwin PA Unavailable Unavailable O'madison, A Irwin PA Unavailable Unavailable O'madison, A Irwin PA Unavailable Unavailable O'madison, A Irwin PA Unavailable Unavailable O'madison, A Irwin PA Unavailable Unavailable O'madison, A Irwin PA Unavailable Unavailable O'madison, A Irwin PA Unavailable Unavailable O'madison, A Irwin PA Unavailable Unavailable O'madison, A Irwin PA Unavailable Unavailable O'madison, A Irwin PA Unavailable Unavailable O'madison, A Irwin PA Unavailable Unavailable O'madison, A Irwin PA Unavailable Unavailable O'madison, A Irwin PA Unavailable Unavailable O'madison, A Irwin PA Unavailable Unavailable O'madison, A Irwin PA Unavailable Unavailable O'madison, A Irwin PA Unavailable Unavailable O'madison, A Irwin PA Unavailable Unavailable O'madison, A Irwin PA Unavailable Unavailable O'madison, A Irwin PA Unavailable Unavailable O'madison, A Irwin PA Unavailable Unavailable O'madison, A Irwin PA Unavailable Unavailable O'madison, A Irwin PA Unavailable Unavailable O'madison, A Irwin PA Unavailable Unavailable O'madison, A Irwin PA Unavailable Unavailable Samreen Mcdowell, Adán Alfaro MD, FACS Unavailable Unavailable Samreen Mcdowell, Adán Alfaro MD, FACS Unavailable Unavailable Samreen Mcdowell, Adán Alfaro MD, FACS Unavailable Unavailable Samreen Mcdowell, Adán Alfaro MD, FACS Unavailable Unavailable Samreen Mcdowell, Adán Alfaro MD, FACS Unavailable Unavailable Adán Vivas MD, FACS Unavailable Unavailable Jolley Mcdowell, Adán Alfaro MD, FACS Unavailable Unavailable Jolley Mcdowell, Adán Alfaro MD, FACS Unavailable Unavailable Jolley Mcdowell, Adán Alfaro MD, FACS Unavailable Unavailable Jolley Mcdowell, Adán Alfaro MD, FACS Unavailable Unavailable Jolley Mcdowell, Adán Alfaro MD, FACS Unavailable Unavailable Jolley Mcdowell, Adán Alfaro MD, FACS Unavailable Unavailable Jolley Mcdowell, Adán Alfaro MD, FACS Unavailable Unavailable Jolley Mcdowell, Adán Alfaro MD, FACS Unavailable Unavailable Jolley Mcdowell, Adán Alfaro MD, FACS Unavailable Unavailable Jolley Mcdowell, Adán Alfaro MD, FACS Unavailable Unavailable Jolley Mcdowell, Adán Alfaro MD, FACS Unavailable Unavailable Jolley Mcdowell, Adán Alfaro MD, FACS Unavailable Unavailable Jolley Mcdowell, Adán Alfaro MD, FACS Unavailable Unavailable Jolley Mcdowell, Adán Alfaro MD, FACS Unavailable Unavailable Jolley Mcdowell, Adán Alfaro MD, FACS Unavailable Unavailable Jolley Mcdowell, Adán Alfaro MD, FACS Unavailable Unavailable Jolley Mcdowell, Adán Alfaro MD, FACS Unavailable Unavailable Jolley Mcdowell, Adán Alfaro MD, FACS Unavailable Unavailable Jolley Mcdowell, Adán Alfaro MD, FACS Unavailable Unavailable Jolley Mcdowell, Adán Alfaro MD, FACS Unavailable Unavailable Jolley Mcdowell, Adán Alfaro MD, FACS Unavailable Unavailable Jolley Mcdowell, Adán Alfaro MD, FACS Unavailable Unavailable Jolley Mcdowell, Adán Alfaro MD, FACS Unavailable Unavailable Jolley Mcdowell, Adán Alfaro MD, FACS Unavailable Unavailable Jolley Mcdowell, Adán Alfaro MD, FACS Unavailable Unavailable Jolley Mcdowell, Adán Alfaro MD, FACS Unavailable Unavailable Jolley Mcdowell, Adán Alfaro MD, FACS Unavailable Unavailable Jolley Mcdowell, Adán Alfaro MD, FACS Unavailable Unavailable Jolley Mcdowell, Adán Alfaro MD, FACS Unavailable Unavailable Jolley Mcdowell, Adán Alfaro MD, FACS Unavailable Unavailable Jolley Mcdowell, Adán Alfaro MD, FACS Unavailable Unavailable Jolley Mcdowell, Adán Alfaro MD, FACS Unavailable Unavailable Jolley Mcdowell, Adán Alfaro MD, FACS Unavailable Unavailable Kory Yung MD Unavailable Unavailable Kory Yung MD Unavailable Unavailable Kory Yung MD Unavailable Unavailable Kory Yung MD Unavailable Unavailable DilshadKory vizcaino MD Unavailable Unavailable Kory Yung MD Unavailable Unavailable Kory Yung MD Unavailable Unavailable Kory Yung MD Unavailable Unavailable Kory Yung MD Unavailable Unavailable Kory Yung MD Unavailable Unavailable Kory Yung MD Unavailable Unavailable Kory Yung MD Unavailable Unavailable Kory Yung MD Unavailable Unavailable Kory Yung MD Unavailable Unavailable Kory Yung MD Unavailable Unavailable Kory Yung MD Unavailable Unavailable Kory Yung MD Unavailable Unavailable Kory Yung MD Unavailable Unavailable Kory Yung MD Unavailable Unavailable Kory Yung MD Unavailable Unavailable Kory Yung MD Unavailable Unavailable Kory Yung MD Unavailable Unavailable Kory Yung MD Unavailable Unavailable Kory Yung MD Unavailable Unavailable Kory Yung MD Unavailable Unavailable Kory Yung MD Unavailable Unavailable Kory Yung MD Unavailable Unavailable Kory Yung MD Unavailable Unavailable Kory Yung MD Unavailable Unavailable Kory Yung MD Unavailable Unavailable Kory Yung MD Unavailable Unavailable Kory Yung MD Unavailable Unavailable Kory Yung MD Unavailable Unavailable Kory Yung MD Unavailable Unavailable Kory Yung MD Unavailable Unavailable Kory Yung MD Unavailable Unavailable Kory Yung MD Unavailable Unavailable Kory Yung MD Unavailable Unavailable Kory Yung MD Unavailable Unavailable Kory Yung MD Unavailable Unavailable Kory Yung MD Unavailable Unavailable Kory Yung MD Unavailable Unavailable Kory Yung MD Unavailable Unavailable Kory Yung MD Unavailable Unavailable Kory Yung MD Unavailable Unavailable Kory Yung MD Unavailable Unavailable Kory Yung MD Unavailable Unavailable Kory Yung MD Unavailable Unavailable Kory Yung MD Unavailable Unavailable Kory Yung MD Unavailable Unavailable Kory Yung MD Unavailable Unavailable Kory Yung MD Unavailable Unavailable Kory Yung MD Unavailable Unavailable Kory Yung MD Unavailable Unavailable Kory Yung MD Unavailable Unavailable Kory Yung MD Unavailable Unavailable Kory Yung MD Unavailable Unavailable Kory Yung MD Unavailable Unavailable Kory Yung MD Unavailable Unavailable Kory Yung MD Unavailable Unavailable Dilshad, O Samah MD Unavailable Unavailable Dilshad, O Samah MD Unavailable Unavailable Dilshad, O Samah MD Unavailable Unavailable Dilshad, O Samah MD Unavailable Unavailable Dilshad, O Samah MD Unavailable Unavailable Dilshad, O Samah MD Unavailable Unavailable Dilshad, O Samah MD Unavailable Unavailable Dilshad, O Samah MD Unavailable Unavailable Dilshad, O Samah MD Unavailable Unavailable Dilshad, O Samah MD Unavailable Unavailable Dilshad, O Samah MD Unavailable Unavailable Dilshad, O Samah MD Unavailable Unavailable Dilshad, O Samah MD Unavailable Unavailable Dilshad, O Samah MD Unavailable Unavailable Dilshad, O Samah MD Unavailable Unavailable Dilshad, O Samah MD Unavailable Unavailable Dilshad, O Samah MD Unavailable Unavailable Dilshad, O Samah MD Unavailable Unavailable Dilshad, O Samah MD Unavailable Unavailable Re-disclosure Warning The records that you are about to access may contain information from federally-assisted alcohol or drug abuse programs. If such information is present, then the following federally mandated warning applies: This information has been disclosed to you from records protected by federal confidentiality rules (42 CFR part 2). The federal rules prohibit you from making any further disclosure of this information unless further disclosure is expressly permitted by the written consent of the person to whom it pertains or as otherwise permitted by 42 CFR part 2. A general authorization for the release of medical or other information is NOT sufficient for this purpose. The Federal rules restrict any use of the information to criminally investigate or prosecute any alcohol or drug abuse patient.The records that you are about to access may contain highly sensitive health information, the redisclosure of which is protected by Article 27-F of the [facility] Public Health law. If you continue you may have access to information: Regarding HIV / AIDS; Provided by facilities licensed or operated by the [facility] Office of Mental Health; or Provided by the [facility] Office for People With Developmental Disabilities. If such information is present, then the following [facility] mandated warning applies: This information has been disclosed to you from confidential records which are protected by state law. State law prohibits you from making any further disclosure of this information without the specific written consent of the person to whom it pertains, or as otherwise permitted by law. Any unauthorized further disclosure in violation of state law may result in a fine or fpc sentence or both. A general authorization for the release of medical or other information is NOT sufficient authorization for further disc losure. Encounters Encounter Providers Location Date Indications Data Source(s ) Outpatient Attender: SARANYA ALAS [facility] 05/06/2021 08:30:00 AM EDT [facility] ([facility]) Outpatient Attender: Shireen Yung MD [facility] 04/23/2021 01:45:00 PM EDT [facility] ([facility] Outpatient Attender: SARANYA ALAS [facility] 03/12/2021 08:20:00 AM EDT [facility] ([facility]) Outpatient Attender: SARANYA ALAS [facility] 02/07/2021 09:40:00 AM EDT [facility] ([facility]) Outpatient Attender: Shireen Yung MD [facility] 01/09/2021 11:30:00 AM EDT [facility] ([facility]) Outpatient Attender: Dilma FIERRO 021 12:47:34 PM EDT - 12/26/2020 01:09:34 PM EDT [facility] ([facility] ) Outpatient Attender: Irwin FIERRO [facility] 12/03/2020 10:20:00 AM EDT [facility] (Family Medicine [facility]) Outpatient Attender: Irwin FIERRO [facility] 11/19/2020 01:00:00 PM EDT [facility] (Family [facility]) Outpatient Attender: Shireen Yung MD [facility] 11/02/2020 08:00:00 AM EDT [facility] ([facility]) Outpatient Attender: Irwin FIERRO [facility] 10/31/2020 09:40:00 AM EDT [facility] (Family [facility]) Outpatient Attender: Irwin FIERRO [facility] 10/15/2020 08:45:00 AM [facility] Attender: Irwin FIERRO [facility] 09/19/2020 12:00:00 PM EST [facility] <td ID="en[id number]">MIR TING - VISUAL FIELD & OCT</td><td>Dominic Thornton MD, FACS</td><td>Dominic Thornton MD [facility]</td><td>05/23/2020</td><td>7:39AM</td><td>8:20AM</td><td><content ID="[email or web address]">Borderline Glaucoma Open Angle with Borderline Findings Both Eyes</content></td>Outpatient Attender: Dominic Mcdowell MD, FACS Dominic Thornton MD [facility] 05/23/2020 07:39:00 AM EDT - 05/23/2020 08:20:00 AM EDT 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Borderline Glaucoma Open Angle with Borderline Findings Both Eyes SHERRON (Dominic Mcdowell MD [facility]) 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 Immunizations Vaccine Date Status Description Data Source(s) COVID-19 VACCINE Moderna 03/05/2021 12:00:00 AM EDT completed [facility] Vaccine Series Complete: YESThis Data wa s Submitted to [facility] Via [employer]. COVID-19 VACCINE Moderna 10/18/2020 12:00:00 AM EDT completed [facility] Vaccine Series Complete: NOThis Data was Submitted to [facility] Via [employer]. Medications Medication Brand Name Start Date Product Form Dose Route Admi nistrative Instructions Pharmacy Instructions Status Indications Reaction Description Data Source(s) 40 mg 05/19/2021 12:00:00 AM EDT tablet 30 TAKE ONE TABLET BY MOUTH EVERY DAY TAKE ONE TABLET BY MOUTH EVERY DAY SOLD: 05/20/2021 [facility] Esomeprazole 20 MG Delayed Release Oral Capsule ESOMEPRAZOLE MAGNESIUM 05/19/2021 12:00:00 AM EDT capsule,delayed release(DR/EC) 30 TAKE ONE CAPSULE BY MOUTH EVERY DAY TAKE ONE CAPSULE BY MOUTH EVERY DAY SOLD: 05/20/2021 [facility] Alprazolam 0.5 MG Oral Tablet ALPRAZOLAM 05/14/2021 12:00:00 AM EDT ta blet 45 TAKE ONE TABLET BY MOUTH EVERY 12 HOURS NEEDED MAXIMUM DAILY DOSE = 2 TABLETS TAKE ONE TABLET BY MOUTH EVERY 12 HOURS NEEDED MAXIMUM DAILY DOSE = 2 TABLETS SOLD: 05/16/2021 [facility] 40 mg 05/14/2021 12:00:00 AM EDT tablet 30 TAKE 1/2 TABLET BY MOUTH EVERY 12 HOURS TAKE 1/2 TABLET BY MOUTH EVERY 12 HOURS SOLD: 05/16/2021 [facility] Vitamin B 12 0.5 MG Oral Tablet Vitamin B-12 Ac[facility] 05/06/2021 12:00:00 AM EDT ORAL active [facility] ([facility]) atorvastatin 20 MG Oral Tablet ATORVASTATIN CALCIUM 03/30/2021 1 2:00:00 AM EDT tablet 30 TAKE 1 TABLET BY MOUTH EVERY NIG HT TAKE 1 TABLET BY MOUTH EVERY NIGHT SOLD: 03/31/2021 [facility] atorvastatin 20 MG Oral Tablet ATORVASTATIN CALCIUM 03/30/2021 1 2:00:00 AM EDT tablet 30 TAKE 1 TABLET BY MOUTH EVERY NIG HT TAKE 1 TABLET BY MOUTH EVERY NIGHT SOLD: 05/03/2021 [facility] Alprazolam 0.5 MG Oral Tablet ALPRAZOLAM 03/29/2021 12:00:00 AM EDT ta blet 45 TAKE ONE TABLET BY MOUTH EVERY 12 HOURS NEEDED MAXIMUM DAILY DOSE = 2 TAKE ONE TABLET BY MOUTH EVERY 12 HOURS NEEDED MAXIMUM DAILY DOSE = 2 SOLD: 03/31/2021 [facility] 500 mg 03/26/2021 12:00:00 AM EDT tablet 60 TAKE ONE TABLET BY MOUTH TWICE A DAY WITH FOOD NEEDED TAKE ONE TABLET BY MOUTH TWICE A DAY WIT H FOOD NEEDED SOLD: 03/31/2021 [facility] 500 mg 03/26/2021 12:00:00 AM EDT tablet 60 TAKE ONE TABLET BY MOUTH TWICE A DAY WITH FOOD NEEDED TAKE ONE TABLET BY MOUTH TWICE A DAY WIT H FOOD NEEDED SOLD: 05/03/2021 [facility] Naproxen 500 MG Oral Tablet Naproxen 03/24/2021 12:00:00 AM EDT active [facility] ([facility]) 24 HR Metformin hydrochloride 500 MG Extended Release Oral T ablet METFORMIN HCL 03/12/2021 12:00:00 AM EDT tablet extended release 24 hr 120 TAKE TWO TABLETS BY MOUTH TWICE A DAY WITH FOOD TAKE TWO TABLETS BY MOUTH TWICE A DAY WITH FOOD SOLD: 03/22/2021 [facility] Aspirin 81 MG Chewable Tablet Aspirin 03/12/2021 12:00:00 AM EDT ORAL active [facility] ([facility]) 81 mg 03/12/2021 12:00:00 AM EDT tablet,chewable 30 CHEW ONE TABLET BY MOUTH EVERY DAY CHEW ONE TABLET BY MOUTH EVERY DAY SOLD: 03/22/2021 [facility] 81 mg 03/12/2021 12:00:00 AM EDT tablet,chewable 30 CHEW ONE TABLET BY MOUTH EVERY DAY CHEW ONE TABLET BY MOUTH EVERY DAY SOLD: 05/20/2021 [facility] 24 HR Metformin hydrochloride 500 MG Extended Release Oral T ablet METFORMIN HCL 03/12/2021 12:00:00 AM EDT tablet extended release 24 hr 120 TAKE TWO TABLETS BY MOUTH TWICE A DAY WITH FOOD TAKE TWO TABLETS BY MOUTH TWICE A DAY WITH FOOD SOLD: 05/20/2021 [facility] 24 HR Metformin hydrochloride 500 MG Extended Release Oral T ablet METFORMIN HCL 03/12/2021 12:00:00 AM EDT tablet extended release 24 hr 120 TAKE TWO TABLETS BY MOUTH TWICE A DAY WITH FOOD TAKE TWO TABLETS BY MOUTH TWICE A DAY WITH FOOD SOLD: 04/21/2021 [facility] 81 mg 03/12/2021 12:00:00 AM EDT tablet,chewable 30 CHEW ONE TABLET BY MOUTH EVERY DAY CHEW ONE TABLET BY MOUTH EVERY DAY SOLD: 04/21/2021 [facility] 100 mcg/0.5 mL 03/03/2021 12:00:00 AM EDT suspension 0 INJECT BY [facility] INJECT BY [facility] SOLD: 03/03/2021 [facility] 12.5 mg 02/07/2021 12:00:00 AM EDT capsule 30 TAKE ONE CAPSULE BY MOUTH EVERY DAY NEEDED FOR SWELLING TAKE ONE CAPSULE BY MOUTH EVERY DAY N EEDED FOR SWELLING SOLD: 03/10/2021 [facility] 24 HR Metformin hydrochloride 500 MG Extended Release Oral Tablet Metformin HCL ER 02/07/2021 12:00:00 AM EDT ORAL active [facility] ([facility]) Hydrochlorothiazide 12.5 MG Oral Capsule Hydrochlorothiazide 02/07/2021 12:00:00 AM EDT ORAL completed [facility] ([facility]) 24 HR Metformin hydrochloride 500 MG Extended Release Oral T ablet METFORMIN HCL 02/07/2021 12:00:00 AM EDT tablet extended release 24 hr 60 TAKE TWO TABLETS BY MOUTH EVERY DAY WITH DINNER TAKE TWO TABLETS BY MOUTH EVERY DAY WITH DINNER SOLD: 05/16/2021 [facility] 500 mg 02/07/2021 12:00:00 AM EDT tablet extended release 24 hr 60 TAKE TWO TABLETS BY MOUTH EVERY DAY WITH DINNER TAKE TWO TABLETS BY MOUTH EVERY DAY WITH DINNER SOLD: 02/07/2021 [facility] 12.5 mg 02/07/2021 12:00:00 AM EDT capsule 30 TAKE ONE CAPSULE BY MOUTH EVERY DAY NEEDED FOR SWELLING TAKE ONE CAPSULE BY MOUTH EVERY DAY N EEDED FOR SWELLING SOLD: 05/06/2021 [facility] 12.5 mg 02/07/2021 12:00:00 AM EDT capsule 30 TAKE ONE CAPSULE BY MOUTH EVERY DAY NEEDED FOR SWELLING TAKE ONE CAPSULE BY MOUTH EVERY DAY N EEDED FOR SWELLING SOLD: 02/07/2021 [facility] 24 HR Metformin hydrochloride 500 MG Extended Release Oral T ablet METFORMIN HCL 02/07/2021 12:00:00 AM EDT tablet extended release 24 hr 60 TAKE TWO TABLETS BY MOUTH EVERY DAY WITH DINNER TAKE TWO TABLETS BY MOUTH EVERY DAY WITH DINNER SOLD: 03/10/2021 [facility] 24 HR Metformin hydrochloride 500 MG Extended Release Oral T ablet METFORMIN HCL 02/07/2021 12:00:00 AM EDT tablet extended release 24 hr 60 TAKE TWO TABLETS BY MOUTH EVERY DAY WITH DINNER TAKE TWO TABLETS BY MOUTH EVERY DAY WITH DINNER SOLD: 04/07/2021 [facility] 12.5 mg 02/07/2021 12:00:00 AM EDT capsule 30 TAKE ONE CAPSULE BY MOUTH EVERY DAY NEEDED FOR SWELLING TAKE ONE CAPSULE BY MOUTH EVERY DAY N EEDED FOR SWELLING SOLD: 04/07/2021 [facility] Alprazolam 0.5 MG Oral Tablet ALPRAZOLAM 02/05/2021 12:00:00 AM EDT ta blet 45 TAKE ONE TABLET BY MOUTH EVERY 12 HOURS NEEDED MAXIMUM DAILY DOSE = 2 TAKE ONE TABLET BY MOUTH EVERY 12 HOURS NEEDED MAXIMUM DAILY DOSE = 2 SOLD: 02/07/2021 [facility] Alprazolam 0.5 MG Oral Tablet ALPRAZOLAM 12/25/2020 12:00:00 AM EDT ta blet 45 TAKE ONE TABLET BY MOUTH EVERY 12 HOURS NEEDED MAXIMUM DAILY DOSE = 2 TABLETS TAKE ONE TABLET BY MOUTH EVERY 12 HOURS NEEDED MAXIMUM DAILY DOSE = 2 TABLETS SOLD: 12/29/2020 [facility] Esomeprazole 20 MG Delayed Release Oral Capsule ESOMEPRAZOLE MAGNESIUM 12/03/2020 12:00:00 AM EDT capsule,delayed release(DR/EC) 30 TAKE ONE CAPSULE BY MOUTH EVERY DAY TAKE ONE CAPSULE BY MOUTH EVERY DAY SOLD: 03/03/2021 [facility] Esomeprazole 20 MG Delayed Release Oral Capsule ESOMEPRAZOLE MAGNESIUM 12/03/2020 12:00:00 AM EDT capsule,delayed release(DR/EC) 30 TAKE ONE CAPSULE BY MOUTH EVERY DAY TAKE ONE CAPSULE BY MOUTH EVERY DAY SOLD: 02/03/2021 [facility] Esomeprazole 20 MG Delayed Release Oral Capsule ESOMEPRAZOLE MAGNESIUM 12/03/2020 12:00:00 AM EDT capsule,delayed release(DR/EC) 30 TAKE ONE CAPSULE BY MOUTH EVERY DAY TAKE ONE CAPSULE BY MOUTH EVERY DAY SOLD: 03/31/2021 [facility] Esomeprazole 20 MG Delayed Release Oral Capsule ESOMEPRAZOLE MAGNESIUM 12/03/2020 12:00:00 AM EDT capsule,delayed release(DR/EC) 30 TAKE ONE CAPSULE BY MOUTH EVERY DAY TAKE ONE CAPSULE BY MOUTH EVERY DAY SOLD: 04/21/2021 [facility] Esomeprazole 20 MG Delayed Release Oral Capsule ESOMEPRAZOLE MAGNESIUM 12/03/2020 12:00:00 AM EDT capsule,delayed release(DR/EC) 30 TAKE ONE CAPSULE BY MOUTH EVERY DAY TAKE ONE CAPSULE BY MOUTH EVERY DAY SOLD: 12/09/2020 [facility] 20 mg 12/03/2020 12:00:00 AM EDT capsule,delayed release (DR/EC) 30 TAKE ONE CAPSULE BY MOUTH EVERY DAY TAKE ONE CAPSULE BY MOUTH EVERY DAY SOLD: 01/05/2021 [facility] Esomeprazole 20 MG Delayed Release Oral Capsule Esomeprazole Magnesium 12/03/2020 12:00:00 AM EDT ORAL active [facility] ([facility]) Verapamil hydrochloride 40 MG Oral Tablet Verapamil HCL 12/03/2020 12:00:00 AM EDT ORAL active [facility] ([facility]) 40 mg 11/27/2020 12:00:00 AM EDT tablet 30 TAKE ONE TABLET BY MOUTH EVERY DAY TAKE ONE TABLET BY MOUTH EVERY DAY SOLD: 11/29/2020 [facility] 40 mg 11/27/2020 12:00:00 AM EDT tablet 30 TAKE ONE TABLET BY MOUTH EVERY DAY TAKE ONE TABLET BY MOUTH EVERY DAY SOLD: 03/22/2021 [facility] 40 mg 11/27/2020 12:00:00 AM EDT tablet 30 TAKE ONE TABLET BY MOUTH EVERY DAY TAKE ONE TABLET BY MOUTH EVERY DAY SOLD: 02/26/2021 [facility] 40 mg 11/27/2020 12:00:00 AM EDT tablet 30 TAKE ONE TABLET BY MOUTH EVERY DAY TAKE ONE TABLET BY MOUTH EVERY DAY SOLD: 01/27/2021 [facility] 40 mg 11/27/2020 12:00:00 AM EDT tablet 30 TAKE ONE TABLET BY MOUTH EVERY DAY TAKE ONE TABLET BY MOUTH EVERY DAY SOLD: 04/21/2021 [facility] 40 mg 11/27/2020 12:00:00 AM EDT tablet 30 TAKE ONE TABLET BY MOUTH EVERY DAY TAKE ONE TABLET BY MOUTH EVERY DAY SOLD: 12/29/2020 [facility] Lisinopril 40 MG Oral Tablet Lisinopril 11/19/2020 12:00:00 AM EDT ORAL active [facility] ([facility]) Alprazolam 0.5 MG Oral Tablet ALPRAZOLAM 11/09/2020 12:00:00 AM EDT ta blet 45 TAKE ONE TABLET BY MOUTH EVERY 12 HOURS NEEDED MAXIMUM DAILY DOSE = 2 TABLETS TAKE ONE TABLET BY MOUTH EVERY 12 HOURS NEEDED MAXIMUM DAILY DOSE = 2 TABLETS SOLD: 11/10/2020 [facility] Verapamil hydrochloride 40 MG Oral Tablet Verapamil HCL 11/02/2020 12:00:00 AM EDT ORAL active [facility] ([facility]) 40 mg 11/02/2020 12:00:00 AM EDT tablet 60 TAKE ONE-HALF TABLET BY MOUTH TWICE A DAY FOR 1 WEEK THEN TAKE ONE TABLET BY MOUTH TWICE A DAY TAKE ONE-HALF TABLET BY MOUTH TWICE A DAY FOR 1 WEEK THEN TAKE ONE TABLET BY MOUTH TWICE A DAY SOLD: 12/02/2020 [facility] 40 mg 11/02/2020 12:00:00 AM EDT tablet 60 TAKE ONE-HALF TABLET BY MOUTH TWICE A DAY FOR 1 WEEK THEN TAKE ONE TABLET BY MOUTH TWICE A DAY TAKE ONE-HALF TABLET BY MOUTH TWICE A DAY FOR 1 WEEK THEN TAKE ONE TABLET BY MOUTH TWICE A DAY SOLD: 03/22/2021 [facility] 40 mg 11/02/2020 12:00:00 AM EDT tablet 60 TAKE ONE-HALF TABLET BY MOUTH TWICE A DAY FOR 1 WEEK THEN TAKE ONE TABLET BY MOUTH TWICE A DAY TAKE ONE-HALF TABLET BY MOUTH TWICE A DAY FOR 1 WEEK THEN TAKE ONE TABLET BY MOUTH TWICE A DAY SOLD: 01/05/2021 [facility] 40 mg 11/02/2020 12:00:00 AM EDT tablet 60 TAKE ONE-HALF TABLET BY MOUTH TWICE A DAY FOR 1 WEEK THEN TAKE ONE TABLET BY MOUTH TWICE A DAY TAKE ONE-HALF TABLET BY MOUTH TWICE A DAY FOR 1 WEEK THEN TAKE ONE TABLET BY MOUTH TWICE A DAY SOLD: 11/02/2020 [facility] 75 mg 11/01/2020 12:00:00 AM EDT tablet,disintegrating 8 TAKE ONE TABLET BY MOUTH EVERY 24 HOURS NEEDED TAKE ONE TABLET BY MOUTH EVERY 24 HOURS NEEDED SOLD: 11/02/2020 [facility] 10 mg 10/31/2020 12:00:00 AM EDT tablet 15 TAKE ONE TABLET BY MOUTH EVERY 8 HOURS WITH FOOD FOR UP TO 5 DAYS TAKE ONE TABLET BY MOUTH EVERY 8 HOURS W ITH FOOD FOR UP TO 5 DAYS SOLD: 10/31/2020 [facility] Injection Ketorolac Tromethamine Per 15 MG (Toradol) 10/31/2020 12:00:00 AM EDT completed [facility] ([facility]) [facility] 12:00:00 AM EDT ORAL active [facility] ([facility]) Ketorolac Tromethamine 10 MG Oral Tablet Ketorolac Trometham ine 10/31/2020 12:00:00 AM EDT ORAL completed [facility] ([facility]) 50 mg 10/27/2020 12:00:00 AM EDT tablet 9 TAKE 1 TABLET BY MOUTH DIRECTED FOR HEADACHE TAKE 1 TABLET BY MOUTH DIRECTED FOR HEADACHE SOLD: 10/27/2020 [facility] atorvastatin 20 MG Oral Tablet ATORVASTATIN CALCIUM 10/15/2020 1 2:00:00 AM EDT tablet 30 TAKE ONE TABLET BY MOUTH EVERY D AY AT NIGHT TAKE ONE TABLET BY MOUTH EVERY DAY AT NIGHT SOLD: 01/05/2021 [facility] atorvastatin 20 MG Oral Tablet ATORVASTATIN CALCIUM 10/15/2020 1 2:00:00 AM EDT tablet 30 TAKE ONE TABLET BY MOUTH EVERY D AY AT NIGHT TAKE ONE TABLET BY MOUTH EVERY DAY AT NIGHT SOLD: 03/03/2021 [facility] 81 mg 10/15/2020 12:00:00 AM EDT tablet,delayed release (DR/EC) 30 TAKE ONE TABLET BY MOUTH EVERY DAY TAKE ONE TABLET BY MOUTH EVERY DAY SOLD: 03/31/2021 [facility] 81 mg 10/15/2020 12:00:00 AM EDT tablet,delayed release (DR/EC) 30 TAKE ONE TABLET BY MOUTH EVERY DAY TAKE ONE TABLET BY MOUTH EVERY DAY SOLD: 03/03/2021 [facility] Acetaminophen 325 MG / butalbital 50 MG / Caffeine 40 MG Oral Tablet Butalbital/Acetaminophen/Caffeine 10/15/2020 12:00:00 AM EDT completed [facility] ([facility]) atorvastatin 20 MG Oral Tablet Atorvastatin Calcium 10/15/2020 1 2:00:00 AM EDT ORAL active [facility] ( [facility] ) Aspirin 81 MG Delayed Release Oral Tablet Aspirin 81 2020 12:00:00 AM EDT ORAL active [facility] ( [facility]) atorvastatin 20 MG Oral Tablet ATORVASTATIN CALCIUM 10/15/2020 1 2:00:00 AM EDT tablet 30 TAKE ONE TABLET BY MOUTH EVERY D AY AT NIGHT TAKE ONE TABLET BY MOUTH EVERY DAY AT NIGHT SOLD: 02/03/2021 [facility] 24 HR Nicotine 0.583 MG/HR Transdermal Patch Nicotine 10/15/2020 12:00:00 AM EDT active [facility] ([facility]) atorvastatin 20 MG Oral Tablet ATORVASTATIN CALCIUM 10/15/2020 1 2:00:00 AM EDT tablet 30 TAKE ONE TABLET BY MOUTH EVERY D AY AT NIGHT TAKE ONE TABLET BY MOUTH EVERY DAY AT NIGHT SOLD: 10/15/2020 [facility] 50-325-40 mg 10/15/2020 12:00:00 AM EDT tablet 60 TAKE ONE TABLET BY MOUTH EVERY 8 HOURS NEEDED FOR HEADACHES TAKE ONE TABLET BY MOUTH EVERY 8 HOURS A S NEEDED FOR HEADACHES SOLD: 10/15/[address] [facility] 81 mg 10/15/2020 12:00:00 AM EDT tablet,delayed release (DR/EC) 30 TAKE ONE TABLET BY MOUTH EVERY DAY TAKE ONE TABLET BY MOUTH EVERY DAY SOLD: 05/03/2021 [facility] Echocardiogram 10/15/2020 12:00:00 AM EDT com pleted [facility] ([facility]) 14 mg/24 hr 10/15/2020 12:00:00 AM EDT patch 24 hour 28 APPLY 1 PATCH ONTO THE SKIN ONCE DAILY, ALTERNATE SITES APPLY 1 PATCH ONTO THE SKIN ONCE DAILY, ALTERNATE SITES SOLD: 10/15/2020 [facility] 81 MG Delayed Release Oral Tablet Aspirin 81 2020 12:00:00 AM EDT ORAL completed [facility] ([facility]) Acetaminophen 325 MG / butalbital 50 MG / Caffeine 40 MG Oral Tablet Butalbital/Acetaminophen/Caffeine 10/15/2020 12:00:00 AM EDT completed [facility] ([facility]) 81 mg 10/15/2020 12:00:00 AM EDT tablet,delayed release (DR/EC) 30 TAKE ONE TABLET BY MOUTH EVERY DAY TAKE ONE TABLET BY MOUTH EVERY DAY SOLD: 02/03/2021 [facility] atorvastatin 20 MG Oral Tablet Atorvastatin Calcium 10/15/2020 1 2:00:00 AM EDT ORAL active [facility] ( [facility]) atorvastatin 20 MG Oral Tablet ATORVASTATIN CALCIUM 10/15/2020 1 2:00:00 AM EDT tablet 30 TAKE ONE TABLET BY MOUTH EVERY D AY AT NIGHT TAKE ONE TABLET BY MOUTH EVERY DAY AT NIGHT SOLD: 11/10/2020 [facility] 24 HR Nicotine 0.583 MG/HR Transdermal Patch Nicotine Step 2 10/15/2020 12:00:00 AM EDT completed [facility] ([facility]) 24 HR Nicotine 0.583 MG/HR Transdermal Patch Nicotine 10/15/2020 12:00:00 AM EDT completed [facility] ([facility]) 81 mg 10/15/2020 12:00:00 AM EDT tablet,delayed release (DR/EC) 30 TAKE ONE TABLET BY MOUTH EVERY DAY TAKE ONE TABLET BY MOUTH EVERY DAY SOLD: 12/09/2020 [facility] 81 mg 10/15/2020 12:00:00 AM EDT tablet,delayed release (DR/EC) 30 TAKE ONE TABLET BY MOUTH EVERY DAY TAKE ONE TABLET BY MOUTH EVERY DAY SOLD: 11/10/2020 [facility] atorvastatin 20 MG Oral Tablet ATORVASTATIN CALCIUM 10/15/2020 1 2:00:00 AM EDT tablet 30 TAKE ONE TABLET BY MOUTH EVERY D AY AT NIGHT TAKE ONE TABLET BY MOUTH EVERY DAY AT NIGHT SOLD: 12/09/2020 [facility] 81 mg 10/15/2020 12:00:00 AM EDT tablet,delayed release (DR/EC) 30 TAKE ONE TABLET BY MOUTH EVERY DAY TAKE ONE TABLET BY MOUTH EVERY DAY SOLD: 01/05/2021 [facility] 81 mg 10/15/2020 12:00:00 AM EDT tablet,delayed release (DR/EC) 30 TAKE ONE TABLET BY MOUTH EVERY DAY TAKE ONE TABLET BY MOUTH EVERY DAY SOLD: 10/15/2020 [facility] Alprazolam 0.5 MG Oral Tablet Alprazolam 10/11/2020 12:00:00 AM EST ORAL active [facility] ([facility] Alprazolam 0.5 MG Oral Tablet ALPRAZOLAM 10/11/2020 12:00:00 AM EST ta blet 45 TAKE 1 TABLET BY MOUTH EVERY 12 HOURS NEEDED MAXIMUM DAILY DOSE = 2 TAKE 1 TABLET BY MOUTH EVERY 12 HOURS NEEDED MAXIMUM DAILY DOSE = 2 SOLD: 10/11/2020 [facility] Alprazolam 0.5 MG Oral Tablet Alprazolam 10/11/2020 12:00:00 AM EST ORAL active [facility] ([facility]) 500 mg 09/20/2020 12:00:00 AM EST tablet 60 TAKE ONE TABLET BY MOUTH TWICE A DAY WITH FOOD NEEDED TAKE ONE TABLET BY MOUTH TWICE A DAY WIT H FOOD NEEDED SOLD: 09/23/2020 [facility] 500 mg 09/20/2020 12:00:00 AM EST tablet 60 TAKE ONE TABLET BY MOUTH TWICE A DAY WITH FOOD NEEDED TAKE ONE TABLET BY MOUTH TWICE A DAY WIT H FOOD NEEDED SOLD: 01/27/2021 [facility] 500 mg 09/20/2020 12:00:00 AM EST tablet 60 TAKE ONE TABLET BY MOUTH TWICE A DAY WITH FOOD NEEDED TAKE ONE TABLET BY MOUTH TWICE A DAY WIT H FOOD NEEDED SOLD: 12/29/2020 [facility] 500 mg 09/20/2020 12:00:00 AM EST tablet 60 TAKE ONE TABLET BY MOUTH TWICE A DAY WITH FOOD NEEDED TAKE ONE TABLET BY MOUTH TWICE A DAY WIT H FOOD NEEDED SOLD: 11/29/2020 [facility] 500 mg 09/20/2020 12:00:00 AM EST tablet 60 TAKE ONE TABLET BY MOUTH TWICE A DAY WITH FOOD NEEDED TAKE ONE TABLET BY MOUTH TWICE A DAY WIT H FOOD NEEDED SOLD: 10/26/2020 [facility] 500 mg 09/20/2020 12:00:00 AM EST tablet 60 TAKE ONE TABLET BY MOUTH TWICE A DAY WITH FOOD NEEDED TAKE ONE TABLET BY MOUTH TWICE A DAY WIT H FOOD NEEDED SOLD: 02/26/2021 [facility] Naproxen 500 MG Oral Tablet Naproxen 09/19/2020 12:00:00 AM EST completed [facility] ([facility]) Injection Ketorolac Tromethamine Per 15 MG (Toradol) 09/19/2020 12:00:00 AM EST completed [facility] ([facility]) Medication administered onsite Acetaminophen 325 MG / Hydrocodone Bitartrate 5 MG Ora l Tablet Hydrocodone-Acetaminophen 09/19/2020 12:00:00 AM EST ORAL completed [facility] ([facility]) 20 mg 09/19/2020 12:00:00 AM EST tablet 10 TAKE TWO TABLETS BY MOUTH EVERY DAY FOR 5 DAYS TAKE TWO TABLETS BY MOUTH EVERY DAY FOR 5 DAYS SOLD: 021 [facility] 5-325 mg 09/19/2020 12:00:00 AM EST tablet 28 TAKE ONE TABLET BY MOUTH EVERY 6 HOURS NEEDED FOR PAIN MAXIMUM DAILY DOSE = 4 TAKE ONE TABLET BY MOUTH EVERY 6 HOURS NEEDED FOR PAIN MAXIMUM DAILY DOSE = 4 SOLD: 09/19/2020 [facility] Prednisone 20 MG Oral Tablet Prednisone 09/19/2020 12:00:00 AM EST ORAL completed [facility] ([facility]) Naproxen 500 MG Delayed Release Oral Tablet Naproxen 09/03 12:00:00 AM EST completed [facility] ([facility]) 20 mg 06/27/2020 12:00:00 AM EST tablet 30 TAKE ONE TABLET BY MOUTH EVERY DAY TAKE ONE TABLET BY MOUTH EVERY DAY SOLD: 08/09/2020 [facility] 20 mg 06/27/2020 12:00:00 AM EST tablet 30 TAKE ONE TABLET BY MOUTH EVERY DAY TAKE ONE TABLET BY MOUTH EVERY DAY SOLD: 09/08/2020 [facility] 20 mg 06/27/2020 12:00:00 AM EST tablet 30 TAKE ONE TABLET BY MOUTH EVERY DAY TAKE ONE TABLET BY MOUTH EVERY DAY SOLD: 07/04/2020 [facility] Lisinopril 20 MG Oral Tablet LISINOPRIL 06/27/2020 12:00:00 AM EST tab let 30 TAKE ONE TABLET BY MOUTH EVERY DAY TAKE ONE TABLET BY MOUTH EVERY DAY SOLD: 11/10/2020 [facility] 20 mg 06/27/2020 12:00:00 AM EST tablet 30 TAKE ONE TABLET BY MOUTH EVERY DAY TAKE ONE TABLET BY MOUTH EVERY DAY SOLD: 10/10/2020 [facility] 20 mg 04/28/2020 12:00:00 AM EDT tablet 10 TAKE TWO TABLETS BY MOUTH EVERY MORNING FOR 5 DAYS TAKE TWO TABLETS BY MOUTH EVERY MORNING FOR 5 DAYS NIXON [facility] 200 mg 04/28/2020 12:00:00 AM EDT capsule 15 TAKE ONE CAPSULE BY MOUTH THREE TIMES A DAY FOR 5 DAYS TAKE ONE CAPSULE BY MOUTH THREE TIMES A DAY FOR 5 DAYS SOLD: 04/28/2020 [facility] 250 mg 04/28/2020 12:00:00 AM EDT tablet 6 TAKE TWO TABLETS BY MOUTH AT ONCE ON THE FIRST DAY THEN TAKE ONE DAILY THEREAFTER TAKE TWO TABLETS BY MOUTH AT ONCE ON THE FIRST DAY THEN TAKE ONE DAILY THEREAFTER SOLD: 04/28/2020 [facility] 20 mg 12/26/2019 12:00:00 AM EDT tablet 30 TAKE ONE TABLET BY MOUTH EVERY DAY TAKE ONE TABLET BY MOUTH EVERY DAY SOLD: 05/10/2020 [facility] 20 mg 12/26/2019 12:00:00 AM EDT tablet 30 TAKE ONE TABLET BY MOUTH EVERY DAY TAKE ONE TABLET BY MOUTH EVERY DAY SOLD: 06/10/2020 [facility] 20 mg 12/26/2019 12:00:00 AM EDT tablet 30 TAKE ONE TABLET BY MOUTH EVERY DAY TAKE ONE TABLET BY MOUTH EVERY DAY SOLD: 04/08/2020 [facility] Insurance Providers Payer name Policy type / Coverage type Policy ID Covered republican ID Covered republican's relationship to moore Policy [place] Plan Information [employer] [place]/[id number] SP [id number] [place] [place]/[id number] SP [id number] [place] [place]/[phone] [id number] SP [id number] [employer] [place]/[phone] [id number] SP [id number] [employer] [place]/[id number] SP [id number] [employer] - [place] Blue Cross/B lue Shield [id number] Self [id number] [facility] [employer] [id number] Self [id number] [place] [employer] [place] [employer] [place] [employer] Blue Cross/Blue Shield [id number] Self [id number] [employer] [place] P[place] 302/[phone] [id number] BCBS of [facility] Other 0 [id number] Self 0 BCBS of [facility] Other 0 [id number] Self 0 [employer] Commercial [id number] Self [employer] BCBS B [id number] S [id number] [employer] B [id number] S [id number] Problems, Conditions, and Diagnoses Code Display Name Description Problem Type Effective Dates Data Source(s) E78.5 Hyperlipidemia Hyperlipidemia Problem 02/07/2021 12:00: 00 AM EDT [facility] ([facility]) 52014803 Numbness Numbness Problem 11/02/2020 12:00:00 AM ED T [facility] ([facility] ) 434591983 Complicated migraine Complicated migraine Problem 11/02/2020 12:00:00 AM EDT [facility] ([facility] ) [id number] 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 Borderline Glaucoma Open Angle with Borderline Findings Both Eyes Problem 05/31/2020 12:00:00 AM EDT SHERRON ([facility]) [id number] 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 Borderline Glaucoma Open Angle with Borderline Findings Both Eyes Problem 05/31/2020 12:00:00 AM EDT SHERRON ([facility]) Surgeries/Procedures Procedure Description Date Indications Data Source(s) OFFICE OUTPATIENT VISIT 25 MINUTES 05/06/2021 12:00:00 AM EDT [facility] ([facility]) OFFICE OUTPATIENT VISIT 25 MINUTES 04/23/2021 12:00:00 AM EDT [facility] ([facility] OFFICE OUTPATIENT VISIT 25 MINUTES 03/12/2021 12:00:00 AM EDT [facility] ([facility]) OFFICE OUTPATIENT VISIT 15 MINUTES 02/07/2021 12:00:00 AM EDT [facility] ([facility]) PERIODIC PREVENTIVE MED EST PATIENT 40-64YRS 12:00:00 AM EDT [facility] ([facility]) OFFICE OUTPATIENT VISIT 25 MINUTES 01/09/2021 12:00:00 AM EDT [facility] ([facility] ) ELECTROENCEPHALOGRAM W/REC AWAKE&ASLEEP 12/17/2020 12: 00:00 AM EDT [facility] ([facility] ) ELECTROENCEPHALOGRAM W/REC AWAKE&ASLEEP 12/17/2020 12: 00:00 AM EDT [facility] ([facility] ) Mammography (procedure) 12/12/2020 12:00:00 AM EDT [facility] ([facility]) OFFICE OUTPATIENT VISIT 25 MINUTES 12/03/2020 12:00:00 AM EDT [facility] ([facility]) OFFICE OUTPATIENT VISIT 25 MINUTES 11/19/2020 12:00:00 AM EDT [facility] ([facility]) NON-INVASIVE PHYSIOLOGIC STUDY EXTREMITY 3 LEVLS 11/10 12:00:00 AM EDT [facility] ([facility] NON-INVASIVE PHYSIOLOGIC STUDY EXTREMITY 3 LEVLS 11/10 12:00:00 AM EDT [facility] ([facility] ) TSTG ANS FUNCJ CARDIOVAGAL INNERVAJ PARASYMP 12:00:00 AM EDT [facility] ([facility] ) TESTING AUTONOMIC NERVOUS SYSTEM FUNCTION 11/10/2020 1 2:00:00 AM EDT [facility] ([facility] ) OFFICE OUTPATIENT NEW 60 MINUTES 11/02/2020 12:00:00 A M EDT [facility] ([facility] ) OFFICE OUTPATIENT VISIT 25 MINUTES 10/31/2020 12:00:00 AM EDT [facility] ([facility]) TOBACCO USE CESSATION INTERMEDIATE 3-10 MINUTES 2020 12:00:00 AM EDT [facility] ([facility]) Garza Cre W/I 7 Days Of DC, Comm W/I 2 Dys 10/15/2020 12:00:00 AM EDT [facility] ([facility]) OFFICE OUTPATIENT VISIT 15 MINUTES 09/19/2020 12:00:00 AM EST [facility] ([facility]) Visual Field Visual Field 05/23/2020 12:00:00 AM EDT Angela ERICKSON ([facility]) Scodi, optic nerve with interpretation and report Scod i, optic nerve with interpretation and report 05/23/2020 12:00:00 AM EDT PHYLLIS Oliver ([facility]) Results ID Date Data Source [id number] 04/20/2021 09:10:00 AM EDT [facility] ([facility]) Name Value Range Interpretation Code Description Data Holley rce(s) Supporting Document(s) Cholesterol Level 107 mg/dL Normal (applies to non-numeri c results) [facility] ([facility]) Triglycerides Level 90 mg/dL Normal (applies to non-nume stormy results) [facility] ([facility]) HDL Cholesterol 41 mg/dL Normal (applies to non-numeric results) [facility] ([facility]) LDL Cholesterol 48 mg/dL Normal (applies to non-numeric results) [facility] ([facility]) Non-HDL-C 66 mg/dL Normal (applies to non-numeric resul ts) [facility] ([facility]) Cholesterol Risk Ratio 2.609 Normal (applies to non-n umeric results) [facility] ([facility]) ID Date Data Source [id number] 04/20/2021 09:10:00 AM EDT [facility] ([facility]) Name Value Range Interpretation Code Description Data Holley rce(s) Supporting Document(s) Glucose, Fasting 80 mg/dL 70-100 Normal (applies to non-numeric results) [facility] ([facility]) Creatinine For GFR 0.63 mg/dL 0.55-1.30 Normal (applies to non -numeric results) [facility] ([facility]) Glomerular Filtration Rate Laboratory test result Normal (applies to non- numeric results) [facility] ([facility]) <content>Units are mL/min/1.73 m2</content>
<content></content>
<content>Chronic Kidney Disease Staging per NKF:</content>
<content></content>
<content>Stage I & II GFR >=60 Normal to Mildly Decreased</content>
<content>Stage III GFR 30-59 Moderately Decreased</content>
<content>Stage IV GFR 15-29 Severely Decreased</content>
<content>Stage V GFR <15 Very Little GFR Left</content>
<content>ESRD GFR <15 on [employer]VISOR [employer]ING</content>
<content></content> Blood Urea Nitrogen 13 mg/dL 7-18 Normal (applies to non-nume stormy results) [facility] ([facility]) Potassium Serum 4.0 meq/L 3.5-5.1 Normal (applies to non-numeric results) [facility] ([facility]) Chloride Level 105 meq/L 98-107 Normal (applies to non-numeric r esults) [facility] ([facility]) Sodium Level 140 meq/L 136-145 Normal (applies to non-numeric res ults) [facility] ([facility]) Carbon Dioxide Level 28 meq/L 21-32 Normal (applies to non-num kevin results) [facility] ([facility]) Anion Gap 7 meq/L 8-16 Below low normal [facility] ( [facility]) Calcium Level 9.1 mg/dL 8.5-10.1 Normal (applies to non-numeric re sults) [facility] ([facility]) Alt/SGPT 20 U/L 12-78 Normal (applies to non-numeric resul ts) [facility] ([facility]) Ast/Sgot 12 U/L 7-37 Normal (applies to non-numeric resul ts) [facility] ([facility]) Bilirubin,Total 0.4 mg/dL 0.2-1.0 Normal (applies to non-numeric results) [facility] ([facility]) Alkaline Phosphatase 82 U/L 45-117 Normal (applies to non-num kevin results) [facility] ([facility]) Albumin/Globulin Ratio 1.1 1.2-2.2 Below low normal [facility] ([facility]) Albumin 3.6 GM/DL 3.2-5.2 Normal (applies to non-numeric resul ts) [facility] ([facility]) Total Protein 6.9 GM/DL 6.4-8.2 Normal (applies to non-numeric re sults) [facility] ([facility]) ID Date Data Source [id number] 04/20/2021 09:10:00 AM EDT [facility]) Name Value Range Interpretation Code Description Data Holley rce(s) Supporting Document(s) Hemoglobin A1c 5.9 % Normal (applies to non-numeric r esults) [facility] ([facility]) <content>REFERENCE RANGES:</content><br/ ><content></content>
<content><=5.6% NORMAL</content>
<content>5.7-6.4% SUGGESTS IMPAIRED GLUCOSE METABOLISM/PREDIABETIC</content>
<content>>= 6.5% ABNORMAL</content>
<content></content> Estimated Average Glucose 123 mg/dL 60-110 Above high normal [facility] ([facility]) ID Date Data Source [id number] 04/20/2021 09:10:00 AM EDT [facility] ([facility]) Name Value Range Interpretation Code Description Data Holley rce(s) Supporting Document(s) Insulin [Units/volume] in Serum or Plasma 0.8 uIU/mL 2.6-24.9 Below low normal [facility] ([facility]) Performed at: RN - [facility] [address] [id number] Cooling Room Attendant: Angeles Torres MD, Phone: [phone] ID Date Data Source [id number] 03/18/2021 12:00:00 AM EDT [facility] Name Value Range Interpretation Code Description Data Holley rce(s) Supporting Document(s) SARS-CoV2 Rapid Antigen Negative [facility] This lab was reported by Ruchi Senior. ID Date Data Source [id number] 03/02/2021 08:36:00 AM EDT [facility] ([facility]) Name Value Range Interpretation Code Description Data Holley rce(s) Supporting Document(s) Thyroid Stimulating Hormone 2.040 uIU/ML 0.358-3.740 Norm al (applies to non- numeric results) [facility] ([facility]) Free T4 0.99 ng/dL 0.76-1.46 Normal (applies to non-numeric resul ts) [facility] ([facility]) ID Date Data Source [id number] 03/02/2021 08:36:00 AM EDT [facility] ([facility]) Name Value Range Interpretation Code Description Data Holley rce(s) Supporting Document(s) Triglycerides Level 112 mg/dL Normal (applies to non-nume stormy results) [facility] ([facility]) LDL Cholesterol 42 mg/dL Normal (applies to non-numeric results) [facility] ([facility]) HDL Cholesterol 39 mg/dL Below low normal [facility] ([facility]) Cholesterol Level 103 mg/dL Normal (applies to non-numeri c results) [facility] ([facility]) Non-HDL-C 64 mg/dL Normal (applies to non-numeric resul ts) [facility] ([facility]) Cholesterol Risk Ratio 2.641 Normal (applies to non-n umeric results) [facility] ([facility]) ID Date Data Source [id number] 03/02/2021 08:36:00 AM EDT [facility] ([facility]) Name Value Range Interpretation Code Description Data Holley rce(s) Supporting Document(s) Red Blood Count 4.33 10 4.00-5.40 Normal (applies to non-numeric results) [facility] ([facility]) White Blood Count 6.1 10 4.0-10.0 Normal (applies to non-numeri c results) [facility] ([facility]) Hemoglobin 13.3 g/dL 12.0-15.5 Normal (applies to non-numeric resul ts) [facility] ([facility]) Mean Corpuscular Hemoglobin 30.7 pg 27.0-33.0 Norm al (applies to non-numeric results) [facility] ([facility]) Mean Corpuscular Volume 91.2 fl 80.0-96.0 Normal ( applies to non-numeric results) [facility] ([facility]) Hematocrit 39.5 % 36.0-47.0 Normal (applies to non-numeric resul ts) [facility] ([facility]) Mean Corpuscular HGB Conc 33.7 g/dL 32.0-36.5 Normal (applies to non-numeric results) [facility] ([facility]) Red Cell Distribution Width 13.4 % 11.5-14.5 Norm al (applies to non-numeric results) [facility] ([facility]) Platelet Count, Automated 332 10 150-450 Normal (applies to non-numeric results) [facility] ([facility]) Neutrophils % 52.6 % 36.0-66.0 Normal (applies to non-numeric re sults) [facility] ([facility]) Lymph % 39.4 % 24.0-44.0 Normal (applies to non-numeric resul ts) [facility] ([facility]) Bent % 4.9 % 2.0-8.0 Normal (applies to non-numeric resul ts) [facility] ([facility]) Baso % 0.5 % 0.0-1.0 Normal (applies to non-numeric resul ts) [facility] ([facility]) Eos % 2.3 % 0.0-3.0 Normal (applies to non-numeric resul ts) [facility] ([facility]) Immature Granulocyte % 0.3 % 0-3.0 Normal (applies to non-n umeric results) [facility] ([facility]) Nucleated Red Blood Cell % 0.0 % 0-0 Normal (applies to n on-numeric results) [facility] ([facility]) Neutrophils # 3.2 10 1.5-8.5 Normal (applies to non-numeric re sults) [facility] ([facility]) Lymph # 2.4 10 1.5-5.0 Normal (applies to non-numeric resul ts) [facility] ([facility]) Bent # 0.3 10 0.0-0.8 Normal (applies to non-numeric resul ts) [facility] ([facility]) Eos # 0.1 10 0.0-0.5 Normal (applies to non-numeric resul ts) [facility] ([facility]) Baso # 0.0 10 0.0-0.2 Normal (applies to non-numeric resul ts) [facility] ([facility]) ID Date Data Source [id number] 03/02/2021 08:36:00 AM EDT [facility] ([facility]) Name Value Range Interpretation Code Description Data Holley rce(s) Supporting Document(s) Glucose, Fasting 83 mg/dL 70-100 Normal (applies to non-numeric results) [facility] ([facility]) Blood Urea Nitrogen 9 mg/dL 7-18 Normal (applies to non-nume stormy results) [facility] ([facility]) Creatinine For GFR 0.69 mg/dL 0.55-1.30 Normal (applies to non -numeric results) [facility] ([facility]) Glomerular Filtration Rate Laboratory test result Normal (applies to non- numeric results) [facility] ([facility]) <content>Units are mL/min/1.73 m2</content>
<content></content>
<content>Chronic Kidney Disease Staging per NKF:</content>
<content></content>
<content>Stage I & II GFR >=60 Normal to Mildly Decreased</content>
<content>Stage III GFR 30- 59 Moderately Decreased</content>
<content>Stage IV GFR 15-29 Severely Decreased</content>
<content>Stage V GFR <15 Very Little GFR Left</content>
<content>ESRD GFR <15 on [employer]</content>
<content></content> Sodium Level 143 meq/L 136-145 Normal (applies to non-numeric res ults) [facility] ([facility]) Chloride Level 112 meq/L 98-107 Above high normal [facility] ([facility]) Potassium Serum 4.4 meq/L 3.5-5.1 Normal (applies to non-numeric results) [facility] ([facility]) Anion Gap 2 meq/L 8-16 Below low normal [facility] ( [facility]) Carbon Dioxide Level 29 meq/L 21-32 Normal (applies to non-num kevin results) [facility] ([facility]) Ast/Sgot 11 U/L 7-37 Normal (applies to non-numeric resul ts) [facility] ([facility]) Calcium Level 8.7 mg/dL 8.5-10.1 Normal (applies to non-numeric re sults) [facility] ([facility]) Alt/SGPT 22 U/L 12-78 Normal (applies to non-numeric resul ts) [facility] ([facility]) Bilirubin,Total 0.4 mg/dL 0.2-1.0 Normal (applies to non-numeric results) [facility] ([facility]) Alkaline Phosphatase 83 U/L 45-117 Normal (applies to non-num kevin results) [facility] ([facility]) Total Protein 6.7 GM/DL 6.4-8.2 Normal (applies to non-numeric re sults) [facility] ([facility]) Albumin 3.5 GM/DL 3.2-5.2 Normal (applies to non-numeric resul ts) [facility] ([facility]) Albumin/Globulin Ratio 1.1 1.2-2.2 Below low normal [facility] ([facility]) ID Date Data Source [id number] 12/26/2020 12:00:00 AM EDT [facility] Name Value Range Interpretation Code Description Data Holley rce(s) Supporting Document(s) SARS-CoV-2 PCR Nucleic Acid Negative [facility] This lab was ordered by Perry bailey and reported by Perry James ID Date Data Source [id number] 11/01/2020 12:02:00 PM EDT [facility] ([facility]) Name Value Range Interpretation Code Description Data Holley rce(s) Supporting Document(s) Lipase [Enzymatic activity/volume] in Serum or Plasma 121 U/L 73-393 Normal (applies to non-numeric results) [facility] ([facility]) ID Date Data Source [id number] 11/01/2020 12:02:00 PM EDT [facility] ([facility]) Name Value Range Interpretation Code Description Data Holley rce(s) Supporting Document(s) Ast/Sgot 29 U/L 7-37 Normal (applies to non-numeric resul ts) [facility] ([facility]) Bilirubin,Total 0.2 mg/dL 0.2-1.0 Normal (applies to non-numeric results) [facility] ([facility]) Alt/SGPT 24 U/L 12-78 Normal (applies to non-numeric resul ts) [facility] ([facility]) Alkaline Phosphatase 83 U/L 45-117 Normal (applies to non-num kevin results) [facility] ([facility]) Bilirubin,Direct Laboratory test result 0.0-0.2 Normal ( applies to non-numeric results) [facility] ([facility]) Total Protein 6.7 GM/DL 6.4-8.2 Normal (applies to non-numeric re sults) [facility] ([facility]) Albumin/Globulin Ratio 1.1 1.2-2.2 Below low normal [facility] ([facility]) Albumin 3.5 GM/DL 3.2-5.2 Normal (applies to non-numeric resul ts) [facility] ([facility]) ID Date Data Source [id number] 11/01/2020 12:02:00 PM EDT [facility] ([facility]) Name Value Range Interpretation Code Description Data Holley rce(s) Supporting Document(s) White Blood Count 10.4 10 4.0-10.0 Above high normal [facility] ([facility]) Red Blood Count 4.36 10 4.00-5.40 Normal (applies to non-numeric results) [facility] ([facility]) Hemoglobin 13.1 g/dL 12.0-15.5 Normal (applies to non-numeric resul ts) [facility] ([facility]) Hematocrit 41.2 % 36.0-47.0 Normal (applies to non-numeric resul ts) [facility] ([facility]) Mean Corpuscular Volume 94.5 fl 80.0-96.0 Normal ( applies to non-numeric results) [facility] ([facility]) Mean Corpuscular Hemoglobin 30.0 pg 27.0-33.0 Norm al (applies to non-numeric results) [facility] ([facility]) Red Cell Distribution Width 13.7 % 11.5-14.5 Norm al (applies to non-numeric results) [facility] ([facility]) Mean Corpuscular HGB Conc 31.8 g/dL 32.0-36.5 Below low normal [facility] ([facility]) Platelet Count, Automated 313 10 150-450 Normal (applies to non-numeric results) [facility] ([facility]) Lymph % 19.1 % 24.0-44.0 Below low normal [facility] ( [facility]) Neutrophils % 72.9 % 36.0-66.0 Above high normal [facility] ([facility]) Bent % 6.0 % 2.0-8.0 Normal (applies to non-numeric resul ts) [facility] ([facility]) Eos % 1.5 % 0.0-3.0 Normal (applies to non-numeric resul ts) [facility] ([facility]) Baso % 0.2 % 0.0-1.0 Normal (applies to non-numeric resul ts) [facility] ([facility]) Neutrophils # 7.6 10 1.5-8.5 Normal (applies to non-numeric re sults) [facility] ([facility]) Immature Granulocyte % 0.3 % 0-3.0 Normal (applies to non-n umeric results) [facility] ([facility]) Nucleated Red Blood Cell % 0.0 % 0-0 Normal (applies to n on-numeric results) [facility] ([facility]) Bent # 0.6 10 0.0-0.8 Normal (applies to non-numeric resul ts) [facility] ([facility]) Lymph # 2.0 10 1.5-5.0 Normal (applies to non-numeric resul ts) [facility] ([facility]) Eos # 0.2 10 0.0-0.5 Normal (applies to non-numeric resul ts) [facility] ([facility]) Baso # 0.0 10 0.0-0.2 Normal (applies to non-numeric resul ts) [facility] ([facility]) ID Date Data Source [id number] 11/01/2020 12:02:00 PM EDT [facility] ([facility]) Name Value Range Interpretation Code Description Data Holley rce(s) Supporting Document(s) Laboratory test finding (navigational concept) 39.0 % 3 8.0-51.0 Normal (applies to non-numeric results) [facility] ([facility]) Laboratory test finding (navigational concept) 71 mg/dL 7 0-105 Normal (applies to non-numeric results) [facility] ([facility]) Laboratory test finding (navigational concept) 141 meq/L 1 36-145 Normal (applies to non-numeric results) [facility] ([facility]) Laboratory test finding (navigational concept) 4.5 meq/L 3 .5-5.1 Normal (applies to non-numeric results) [facility] ([facility]) Laboratory test finding (navigational concept) 4.7 mg/dL 4 .5-5.3 Normal (applies to non-numeric results) [facility] ([facility]) Laboratory test finding (navigational concept) 109 meq/L 9 8-109 Normal (applies to non-numeric results) [facility] ([facility]) Laboratory test finding (navigational concept) 27.0 MM/L 2 3.0-27.0 Normal (applies to non-numeric results) [facility] ([facility]) Laboratory test finding (navigational concept) 7 mg/dL 8-26 Below low normal [facility] ([facility]) Laboratory test finding (navigational concept) 0.6 mg/dL 0 .6-1.3 Normal (applies to non-numeric results) [facility] ([facility]) ID Date Data Source [id number] 10/31/2020 10:15:00 AM EDT [facility] ([facility]) Name Value Range Interpretation Code Description Data Holley rce(s) Supporting Document(s) Inhouse Leukocytes Laboratory test result [facility] ([facility]) Inhouse Nitrite Laboratory test result [facility] ([facility]) Inhouse Urobilinogen Laboratory test result [facility] ([facility]) Inhouse Protein Laboratory test result [facility] ([facility]) Inhouse PH 7 [facility] ([facility]) Inhouse Hemoglobin Laboratory test result [facility] ([facility]) Inhouse Bilirubin Laboratory test result [facility] ([facility]) Inhouse Ketones Laboratory test result [facility] ([facility]) Inhouse Specific [place] 1.010 [facility] ([facility]) Inhouse Glucose Laboratory test result [facility] ([facility]) ID Date Data Source [id number] 10/31/2020 10:10:00 AM EDT [facility] ([facility]) Name Value Range Interpretation Code Description Data Holley rce(s) Supporting Document(s) Bacteria identified in Urine by Culture Laboratory test result Normal (applies to non-numeric results) [facility] ([facility]) FULL REPORT IN LAB NOTES ([facility] and [facility] ). SPECIMEN APPEARS CONTAMINATED ID Date Data Source [id number] 10/09/2020 02:41:00 PM EST [facility] Name Value Range Interpretation Code Description Data Holley rce(s) Supporting Document(s) SARS coronavirus 2 RNA [Presence] in Res piratory specimen by NEELIMA with probe detection NEGATIVE [facility] This lab was ordered by [facility] a nd reported by [facility]. ID Date Data Source [id number] 10/09/2020 09:22:00 AM EST [facility] ([facility]) Name Value Range Interpretation Code Description Data Holley rce(s) Supporting Document(s) CPK Creatine Phosphokinase 56 U/L 26-192 Marce l (applies to non-numeric results) [facility] ([facility]) CK-MB Value Mass Laboratory test result Normal ( applies to non-numeric results) [facility] ([facility]) MB/CK Relative Index 1.79 Normal (applies to non-num kevin results) [facility] ([facility]) <content>DIAGNOSIS CRITERIA</content>
<content>MMB ng/ml Relative Index (RI)</content>
<content>NON-AMI < or = 5 N/A</content>
<content>ADAMS ZONE > 5 < or = 4</content>
<content>AMI > 5 > 4</content>
<content></content> Troponin I Laboratory test result Normal (applies to non-n umeric results) [facility] ([facility]) <content>Troponin I Reference Interval f or Siemens [place] LOCI:</content>
<content></content>
<content>99th Percentile= 0.00-0.045 ng/ml</content>
<content></content>
<content>Risk Stratification:</content>
<content><= 0.10 ng/ml Decreased Risk for Adverse Clinical</content>
<content>Events.</content>
<content>0.10-1.50 ng/ml Increased Risk for Adverse Clinical</content>
<content>Events. Evaluation of additional</content>
<content>criterion and/or repeat testing in 2-6</content>
<content>hours is suggested to rule out myocardial</content>
<content>damage.</content>
<content>>= 1.50 ng/ml Indicative of Myocardial Injury.</content>
<content></content> ID Date Data Source [id number] 10/09/2020 09:22:00 AM EST [facility] ([facility]) Name Value Range Interpretation Code Description Data Holley rce(s) Supporting Document(s) Ast/Sgot 10 U/L 7-37 Normal (applies to non-numeric resul ts) [facility] ([facility]) Alt/SGPT 23 U/L 12-78 Normal (applies to non-numeric resul ts) [facility] ([facility]) Alkaline Phosphatase 73 U/L 45-117 Normal (applies to non-num kevin results) [facility] ([facility]) Bilirubin,Total 0.2 mg/dL 0.2-1.0 Normal (applies to non-numeric results) [facility] ([facility]) Total Protein 6.8 GM/DL 6.4-8.2 Normal (applies to non-numeric re sults) [facility] ([facility]) Bilirubin,Direct Laboratory test result 0.0-0.2 Normal ( applies to non-numeric results) [facility] ([facility]) Albumin 3.5 GM/DL 3.2-5.2 Normal (applies to non-numeric resul ts) [facility] ([facility]) Albumin/Globulin Ratio 1.1 1.2-2.2 Below low normal [facility] ([facility]) ID Date Data Source [id number] 10/09/2020 09:22:00 AM EST [facility] ([facility]) Name Value Range Interpretation Code Description Data Holley rce(s) Supporting Document(s) Glucose, Fasting 90 mg/dL 70-100 Normal (applies to non-numeric results) [facility] ([facility]) Creatinine For GFR 0.65 mg/dL 0.55-1.30 Normal (applies to non -numeric results) [facility] ([facility]) Blood Urea Nitrogen 9 mg/dL 7-18 Normal (applies to non-nume stormy results) [facility] ([facility]) Sodium Level 141 meq/L 136-145 Normal (applies to non-numeric res ults) [facility] ([facility]) Glomerular Filtration Rate Laboratory test result Normal (applies to non- numeric results) [facility] ([facility]) <content>Units are mL/min/1.73 m2</content>
<content></content>
<content>Chronic Kidney Disease Staging per NKF:</content>
<content></content>
<content>Stage I & II GFR >=60 Normal to Mildly Decreased</content>
<content>Stage III GFR 30- 59 Moderately Decreased</content>
<content>Stage IV GFR 15-29 Severely Decreased</content>
<content>Stage V GFR <15 Very Little GFR Left</content>
<content>ESRD GFR <15 on [employer]</content>
<content></content> Potassium Serum 4.1 meq/L 3.5-5.1 Normal (applies to non-numeric results) [facility] ([facility]) Chloride Level 111 meq/L 98-107 Above high normal [facility] ([facility]) Carbon Dioxide Level 25 meq/L 21-32 Normal (applies to non-num kevin results) [facility] ([facility]) Anion Gap 5 meq/L 8-16 Below low normal [facility] Calcium Level 8.5 mg/dL 8.5-10.1 Normal (applies to non-numeric re sults) [facility] ([facility]) ID Date Data Source [id number] 10/09/2020 09:22:00 AM EST [facility] ([facility]) Name Value Range Interpretation Code Description Data Holley rce(s) Supporting Document(s) Choriogonadotropin.beta subunit ( test) [Pres ence] in Serum or Plasma Laboratory test result Normal (applies to non-numeric results) [facility] ([facility]) ID Date Data Source [id number] 10/09/2020 09:22:00 AM EST [facility] ([facility]) Name Value Range Interpretation Code Description Data Holley rce(s) Supporting Document(s) Prothrombin Time 12.9 s 12.5-14.3 Normal (applies to non-numeric results) [facility] ([facility]) Inr 0.95 Normal (applies to non-numeric resul ts) [facility] ([facility]) THERAPUTIC HUMAN INR VALUES INDICATIONS NORMAL RANGES PROPHYLAXIS/TREATMENT OF: VENOUS THROMBOSIS 2.0-3.0 PULMONARY EMBOLISM 2.0-3.0 PREVENTION OF SYSTEMIC EMBOLISM FROM: TISSUE HEART VALVES 2.0-3.0 ACUTE MYOCARDIAL INFARCTION 2.0-3.0 VALVULAR HEART DISEASE 2.0-3.0 ATRIAL FIBRILLATION 2.0-3.0 MECHANICAL VALVES(HIGH RISK) 2.5-3.5 RECURRENT MYOCARDIAL INFARCTION 2.5-3.5 ID Date Data Source [id number] 10/09/2020 09:22:00 AM EST [facility] ([facility]) Name Value Range Interpretation Code Description Data Holley rce(s) Supporting Document(s) aPTT in Platelet poor plasma by Coagulation assay 28.3 s 24.2-38.5 Normal (applies to non-numeric results) [facility] ([facility]) ID Date Data Source [id number] 10/09/2020 09:22:00 AM EST [facility] ([facility]) Name Value Range Interpretation Code Description Data Holley rce(s) Supporting Document(s) Hemoglobin 12.9 g/dL 12.0-15.5 Normal (applies to non-numeric resul ts) [facility] ([facility]) Red Blood Count 4.30 10 4.00-5.40 Normal (applies to non-numeric results) [facility] ([facility]) White Blood Count 6.8 10 4.0-10.0 Normal (applies to non-numeri c results) [facility] ([facility]) Hematocrit 39.2 % 36.0-47.0 Normal (applies to non-numeric resul ts) [facility] ([facility]) Mean Corpuscular Volume 91.2 fl 80.0-96.0 Normal ( applies to non-numeric results) [facility] ([facility]) Mean Corpuscular HGB Conc 32.9 g/dL 32.0-36.5 Normal (applies to non-numeric results) [facility] ([facility]) Mean Corpuscular Hemoglobin 30.0 pg 27.0-33.0 Norm al (applies to non-numeric results) [facility] ([facility]) Platelet Count, Automated 311 10 150-450 Normal (applies to non-numeric results) [facility] ([facility]) Red Cell Distribution Width 13.4 % 11.5-14.5 Norm al (applies to non-numeric results) [facility] ([facility]) Neutrophils % 62.8 % 36.0-66.0 Normal (applies to non-numeric re sults) [facility] ([facility]) Lymph % 28.7 % 24.0-44.0 Normal (applies to non-numeric resul ts) [facility] ([facility]) Bent % 5.9 % 2.0-8.0 Normal (applies to non-numeric resul ts) [facility] ([facility]) Eos % 1.8 % 0.0-3.0 Normal (applies to non-numeric resul ts) [facility] ([facility]) Baso % 0.4 % 0.0-1.0 Normal (applies to non-numeric resul ts) [facility] ([facility]) Immature Granulocyte % 0.4 % 0-3.0 Normal (applies to non-n umeric results) [facility] ([facility]) Nucleated Red Blood Cell % 0.0 % 0-0 Normal (applies to n on-numeric results) [facility] ([facility]) Neutrophils # 4.3 10 1.5-8.5 Normal (applies to non-numeric re sults) [facility] ([facility]) Lymph # 2.0 10 1.5-5.0 Normal (applies to non-numeric resul ts) [facility] ([facility]) Bent # 0.4 10 0.0-0.8 Normal (applies to non-numeric resul ts) [facility] ([facility]) Baso # 0.0 10 0.0-0.2 Normal (applies to non-numeric resul ts) [facility] ([facility]) Eos # 0.1 10 0.0-0.5 Normal (applies to non-numeric resul ts) [facility] ([facility]) ID Date Data Source [id number] 10/06/2020 09:48:00 PM EST [facility] Name Value Range Interpretation Code Description Data Holley rce(s) Supporting Document(s) Creatinine For GFR 0.68 mg/dL 0.55-1.30 Normal (applies to non -numeric results) [facility] ([facility]) Glucose, Fasting 106 mg/dL 70-100 Above high normal [facility] ([facility]) Blood Urea Nitrogen 12 mg/dL 7-18 Normal (applies to non-nume stormy results) [facility] ([facility]) Sodium Level 143 meq/L 136-145 Normal (applies to non-numeric res ults) [facility] ([facility]) Glomerular Filtration Rate Laboratory test result Normal (applies to non- numeric results) [facility] ([facility]) <content>Units are mL/min/1.73 m2</content>
<content></content>
<content>Chronic Kidney Disease Staging per NKF:</content>
<content></content>
<content>Stage I & II GFR >=60 Normal to Mildly Decreased</content>
<content>Stage III GFR 30- 59 Moderately Decreased</content>
<content>Stage IV GFR 15-29 Severely Decreased</content>
<content>Stage V GFR <15 Very Little GFR Left</content>
<content>ESRD GFR <15 on [employer]</content>
<content></content> Chloride Level 111 meq/L 98-107 Above high normal [facility] ([facility]) Potassium Serum 3.9 meq/L 3.5-5.1 Normal (applies to non-numeric results) [facility] ([facility]) Carbon Dioxide Level 27 meq/L 21-32 Normal (applies to non-num kevin results) [facility] ([facility]) Anion Gap 5 meq/L 8-16 Below low normal [facility] ( [facility]) Calcium Level 8.9 mg/dL 8.5-10.1 Normal (applies to non-numeric re sults) [facility] ([facility]) ID Date Data Source [id number] 10/06/2020 09:48:00 PM EST [facility] ([facility]) Name Value Range Interpretation Code Description Data Holley rce(s) Supporting Document(s) Hemoglobin 12.4 g/dL 12.0-15.5 Normal (applies to non-numeric resul ts) [facility] ([facility]) Red Blood Count 4.13 10 4.00-5.40 Normal (applies to non-numeric results) [facility] ([facility]) White Blood Count 7.9 10 4.0-10.0 Normal (applies to non-numeri c results) [facility] ([facility]) Hematocrit 37.7 % 36.0-47.0 Normal (applies to non-numeric resul ts) [facility] ([facility]) Mean Corpuscular Volume 91.3 fl 80.0-96.0 Normal ( applies to non-numeric results) [facility] ([facility]) Mean Corpuscular HGB Conc 32.9 g/dL 32.0-36.5 Normal (applies to non-numeric results) [facility] ([facility]) Mean Corpuscular Hemoglobin 30.0 pg 27.0-33.0 Norm al (applies to non-numeric results) [facility] ([facility]) Platelet Count, Automated 314 10 150-450 Normal (applies to non-numeric results) [facility] ([facility]) Red Cell Distribution Width 13.6 % 11.5-14.5 Norm al (applies to non-numeric results) [facility] ([facility]) Neutrophils % 55.0 % 36.0-66.0 Normal (applies to non-numeric re sults) [facility] ([facility]) Lymph % 36.2 % 24.0-44.0 Normal (applies to non-numeric resul ts) [facility] ([facility]) Bent % 5.8 % 2.0-8.0 Normal (applies to non-numeric resul ts) [facility] ([facility]) Baso % 0.5 % 0.0-1.0 Normal (applies to non-numeric resul ts) [facility] ([facility]) Eos % 2.1 % 0.0-3.0 Normal (applies to non-numeric resul ts) [facility] ([facility]) Nucleated Red Blood Cell % 0.0 % 0-0 Normal (applies to n on-numeric results) [facility] ([facility]) Immature Granulocyte % 0.4 % 0-3.0 Normal (applies to non-n umeric results) [facility] ([facility]) Neutrophils # 4.4 10 1.5-8.5 Normal (applies to non-numeric re sults) [facility] ([facility]) Bent # 0.5 10 0.0-0.8 Normal (applies to non-numeric resul ts) [facility] ([facility]) Lymph # 2.9 10 1.5-5.0 Normal (applies to non-numeric resul ts) [facility] ([facility]) Eos # 0.2 10 0.0-0.5 Normal (applies to non-numeric resul ts) [facility] ([facility]) Baso # 0.0 10 0.0-0.2 Normal (applies to non-numeric resul ts) [facility] ([facility]) ID Date Data Source [id number] 04/25/2020 12:00:00 PM EDT [facility] ([facility]) Name Value Range Interpretation Code Description Data Holley rce(s) Supporting Document(s) Coronavirus 2019 Nasopharygeal Laboratory test result [facility] ([facility]) This nucleic acid amplification test was developed and its performance characteristics determined by [employer]. Nucleic acid amplification tests include PCR and TMA. This test has not been FDA cleared or approved. This test has been authorized by FDA under an Emergency Use Authorization (EUA). This test is only authorized for the duration of time the declaration that circumstances exist justifying the authorization of the emergency use of in vitro diagnostic tests for detection of SARS-CoV-2 virus and/or diagnosis of COVID-19 infection under section 564(b)(1) of the Act, 21 U.S.C. 360bbb-3 (b) (1), unless the authorization is terminated or revoked sooner. When diagnostic testing is negative, the possibility of a false negative result should be considered in the context of a patient's recent exposures and the presence of clinical signs and symptoms consistent with COVID-19. An individual without symptoms of COVID-19 and who is not shedding SARS-CoV-2 virus would expect to have a negative (not detected) result in this assay. Performed at: RN - [facility] [address] [id number] Cooling Room Attendant: Angeles Torres MD, Phone: [phone] Not Detected ID Date Data Source [id number] 04/25/2020 12:00:00 PM EDT [facility] Name Value Range Interpretation Code Description Data Holley rce(s) Supporting Document(s) SARS coronavirus 2 RNA [facility] This lab was ordered by [facility] and reported by [facility]. ID Date Data Source [id number] 04/21/2020 02:31:00 AM EDT [facility] ([facility]) Name Value Range Interpretation Code Description Data Holley rce(s) Supporting Document(s) Laboratory test finding (navigational concept) 0.00 ng/mL 0 .00-0.08 Normal (applies to non-numeric results) [facility] ([facility]) ID Date Data Source [id number] 04/20/2020 11:11:00 PM EDT [facility] ([facility]) Name Value Range Interpretation Code Description Data Holley rce(s) Supporting Document(s) Laboratory test finding (navigational concept) 0.00 ng/mL 0 .00-0.08 Normal (applies to non-numeric results) [facility] ([facility]) ID Date Data Source [id number] 04/20/2020 11:08:00 PM EDT [facility] ([facility]) Name Value Range Interpretation Code Description Data Holley rce(s) Supporting Document(s) Glucose, Fasting 101 mg/dL 70-100 Above high normal [facility]) Creatinine For GFR 1.08 mg/dL 0.55-1.30 Normal (applies to non -numeric results) [facility] ([facility]) Blood Urea Nitrogen 11 mg/dL 7-18 Normal (applies to non-nume stormy results) [facility] ([facility]) Sodium Level 143 meq/L 136-145 Normal (applies to non-numeric res ults) [facility] ([facility]) Potassium Serum 4.0 meq/L 3.5-5.1 Normal (applies to non-numeric results) [facility] ([facility]) Glomerular Filtration Rate 59.2 Normal (applies to n on-numeric results) [facility] ([facility]) <content>Units are mL/min/1.73 m2</content>
<content></content>
<content>Chronic Kidney Disease Staging per NKF:</content>
<content></content>
<content>Stage I & II GFR >=60 Normal to Mildly Decreased</content>
<content>Stage III GFR 30- 59 Moderately Decreased</content>
<content>Stage IV GFR 15-29 Severely Decreased</content>
<content>Stage V GFR <15 Very Little GFR Left</content>
<content>ESRD GFR <15 on [employer]</content>
<content></content> Carbon Dioxide Level 26 meq/L 21-32 Normal (applies to non-num kevin results) [facility] ([facility]) Chloride Level 112 meq/L 98-107 Above high normal [facility] ([facility]) Anion Gap 5 meq/L 8-16 Below low normal [facility] ( [facility]) Calcium Level 8.4 mg/dL 8.5-10.1 Below low normal [facility] ([facility]) ID Date Data Source [id number] 04/20/2020 11:08:00 PM EDT [facility] ([facility]) Name Value Range Interpretation Code Description Data Holley rce(s) Supporting Document(s) Red Blood Count 4.17 10 4.00-5.40 Normal (applies to non-numeric results) [facility] ([facility]) White Blood Count 5.9 10 4.0-10.0 Normal (applies to non-numeri c results) [facility] ([facility]) Hemoglobin 12.7 g/dL 12.0-15.5 Normal (applies to non-numeric resul ts) [facility] ([facility]) Mean Corpuscular Volume 91.1 fl 80.0-96.0 Normal ( applies to non-numeric results) [facility] ([facility]) Mean Corpuscular Hemoglobin 30.5 pg 27.0-33.0 Norm al (applies to non-numeric results) [facility] ([facility]) Hematocrit 38.0 % 36.0-47.0 Normal (applies to non-numeric resul ts) [facility] ([facility]) Platelet Count, Automated 328 10 150-450 Normal (applies to non-numeric results) [facility] ([facility]) Red Cell Distribution Width 13.2 % 11.5-14.5 Norm al (applies to non-numeric results) [facility] ([facility]) Mean Corpuscular HGB Conc 33.4 g/dL 32.0-36.5 Normal (applies to non-numeric results) [facility] ([facility]) Lymph % 41.7 % 24.0-44.0 Normal (applies to non-numeric resul ts) [facility] ([facility]) Neutrophils % 49.6 % 36.0-66.0 Normal (applies to non-numeric re sults) [facility] ([facility]) Bent % 6.3 % 0.0-5.0 Above high normal [facility] ([facility]) Immature Granulocyte % 0.2 % 0-3.0 Normal (applies to non-n umeric results) [facility] ([facility]) Eos % 1.7 % 0.0-3.0 Normal (applies to non-numeric resul ts) [facility] ([facility]) Baso % 0.5 % 0.0-1.0 Normal (applies to non-numeric resul ts) [facility] ([facility]) Neutrophils # 2.9 10 1.5-8.5 Normal (applies to non-numeric re sults) [facility] ([facility]) Lymph # 2.4 10 1.5-5.0 Normal (applies to non-numeric resul ts) [facility] ([facility]) Nucleated Red Blood Cell % 0.0 % 0-0 Normal (applies to n on-numeric results) [facility] ([facility]) Bent # 0.4 10 0.0-0.8 Normal (applies to non-numeric resul ts) [facility] ([facility]) Eos # 0.1 10 0.0-0.5 Normal (applies to non-numeric resul ts) [facility] ([facility]) Baso # 0.0 10 0.0-0.2 Normal (applies to non-numeric resul ts) [facility] ([facility]) Procedure Social History Code Duration Value Status Description Data Source(s ) Smoking 03/25/2021 06:24:49 PM EDT Smokes tobacco daily (findi ng) completed Smokes tobacco daily (finding) [facility] (Dominic Mcdowell MD [facility]) Vital Signs ID Date Data Source UNK Name Value Range Interpretation Code Description Data Source(s) Systolic blood pressure 126 mm[Hg] 126 mm[Hg] M [facility] ([facility]) Diastolic blood pressure 76 mm[Hg] 76 mm[Hg] [facility] ([facility]) Body height 60 [in_i] 60 [in_i] [facility] ([facility]) 5'0" Body weight 237.12 [lb_av] 237.12 [lb_av] [facility] ([facility]) Body mass index (BMI) [Ratio] 46.3 kg/m2 46.3 k g/m2 [facility] Heart rate 93 /min 93 /min [facility] ([facility]) Respiratory rate 18 /min 18 /min [facility] ( [facility]) Body temperature 98.9 [degF] 98.9 [degF] [facility] ([facility]) Oxygen saturation in Arterial blood by Pulse oximetry 98 % 98 % [facility] ([facility]) [place] body weight 100 [lb_av] 100 [lb_av] [facility] ([facility]) Respiratory rate 12 /min 12 /min [facility] ( [facility] ) Body height 61 [in_i] 61 [in_i] [facility] ([facility] ) 5'1" Body weight 233.00 [lb_av] 233.00 [lb_av] [facility] ([facility] ) Body mass index (BMI) [Ratio] 44.0 kg/m2 44.0 k g/m2 [facility] ([facility] ) [place] body weight 105 [lb_av] 105 [lb_av] [facility] ([facility]) Diastolic blood pressure 88 mm[Hg] 88 mm[Hg] [facility] ([facility]) Body height 60 [in_i] 60 [in_i] [facility] ([facility]) 5'0" Body temperature 98.6 [degF] 98.6 [degF] [facility] ([facility]) Oxygen saturation in Arterial blood by Pulse oximetry 96 % 96 % [facility] ([facility]) [place] body weight 100 [lb_av] 100 [lb_av] [facility] ([facility]) Body weight 244.00 [lb_av] 244.00 [lb_av] [facility] ([facility]) Systolic blood pressure 132 mm[Hg] 132 mm[Hg] M [facility] ([facility]) Body mass index (BMI) [Ratio] 47.6 kg/m2 47.6 k g/m2 [facility] ([facility]) Heart rate 90 /min 90 /min [facility] ([facility]) Respiratory rate 18 /min 18 /min [facility] ( [facility]) [place] body weight 100 [lb_av] 100 [lb_av] [facility] ([facility]) Heart rate 74 /min 74 /min [facility] ([facility]) Body mass index (BMI) [Ratio] 48.0 kg/m2 48.0 k g/m2 [facility] ([facility]) Respiratory rate 18 /min 18 /min [facility] ( [facility]) Body temperature 97.9 [degF] 97.9 [degF] [facility] ([facility]) Systolic blood pressure 148 mm[Hg] 148 mm[Hg] M [facility] ([facility]) Diastolic blood pressure 86 mm[Hg] 86 mm[Hg] [facility] ([facility]) Body height 60 [in_i] 60 [in_i] [facility] ([facility]) 5'0" Body weight 246.00 [lb_av] 246.00 [lb_av] [facility] ([facility]) Oxygen saturation in Arterial blood by Pulse oximetry 97 % 97 % [facility] ([facility]) Respiratory rate 12 /min 12 /min [facility] ( [facility] ) Body height 61 [in_i] 61 [in_i] [facility] ([facility] ) 5'1" Body weight 240.00 [lb_av] 240.00 [lb_av] [facility] ([facility] ) Body mass index (BMI) [Ratio] 45.3 kg/m2 45.3 k g/m2 [facility] ([facility] ) [place] body weight 105 [lb_av] 105 [lb_av] [facility] ([facility] ) Diastolic blood pressure 82 mm[Hg] 82 mm[Hg] [facility] ([facility]) Systolic blood pressure 128 mm[Hg] 128 mm[Hg] M [facility] ([facility]) Body mass index (BMI) [Ratio] 48.5 kg/m2 48.5 k g/m2 [facility] ([facility]) Respiratory rate 18 /min 18 /min [facility] ( [facility]) Body temperature 99.4 [degF] 99.4 [degF] [facility]) Oxygen saturation in Arterial blood by Pulse oximetry 97 % 97 % [facility] ([facility]) [place] body weight 100 [lb_av] 100 [lb_av] [facility] ([facility]) Body height 60 [in_i] 60 [in_i] [facility] ([facility]) 5'0" Body weight 248.38 [lb_av] 248.38 [lb_av] [facility] ([facility]) Heart rate 99 /min 99 /min [facility]) Systolic blood pressure 158 mm[Hg] 158 mm[Hg] [facility] ([facility]) Diastolic blood pressure 88 mm[Hg] 88 mm[Hg] [facility] ([facility]) Body height 60 [in_i] 60 [in_i] [facility] ([facility]) 5'0" Body weight 249.50 [lb_av] 249.50 [lb_av] [facility] ([facility]) Body mass index (BMI) [Ratio] 48.7 kg/m2 48.7 k g/m2 [facility] ([facility]) Heart rate 91 /min 91 /min [facility] ([facility]) Respiratory rate 18 /min 18 /min [facility] ( [facility]) Body temperature 98.9 [degF] 98.9 [degF] [facility] ([facility]) Oxygen saturation in Arterial blood by Pulse oximetry 97 % 97 % [facility] ([facility]) [place] body weight 100 [lb_av] 100 [lb_av] [facility] ([facility]) Body weight 240.00 [lb_av] 240.00 [lb_av] [facility] ([facility] ) Body mass index (BMI) [Ratio] 45.3 kg/m2 45.3 k g/m2 [facility] ([facility] ) [place] body weight 105 [lb_av] 105 [lb_av] [facility] ([facility] ) Respiratory rate 12 /min 12 /min [facility] ( [facility] ) Body height 61 [in_i] 61 [in_i] [facility] ([facility] ) 5'1" Oxygen saturation in Arterial blood by Pulse oximetry 97 % 97 % [facility] ([facility]) [place] body weight 100 [lb_av] 100 [lb_av] [facility] ([facility]) Systolic blood pressure 128 mm[Hg] 128 mm[Hg] M [facility] ([facility]) Diastolic blood pressure 80 mm[Hg] 80 mm[Hg] [facility] ([facility]) Body height 60 [in_i] 60 [in_i] [facility] ([facility]) 5'0" Body weight 247.25 [lb_av] 247.25 [lb_av] [facility] ([facility]) Body mass index (BMI) [Ratio] 48.3 kg/m2 48.3 k g/m2 [facility] ([facility]) Heart rate 94 /min 94 /min [facility] ([facility]) Respiratory rate 18 /min 18 /min [facility] ( [facility]) Body temperature 97.2 [degF] 97.2 [degF] [facility] ([facility]) Oxygen saturation in Arterial blood by Pulse oximetry 96 % 96 % [facility] ([facility]) [place] body weight 100 [lb_av] 100 [lb_av] [facility] ([facility]) Heart rate 84 /min 84 /min [facility] ([facility]) Systolic blood pressure 126 mm[Hg] 126 mm[Hg] M [facility] ([facility]) Diastolic blood pressure 72 mm[Hg] 72 mm[Hg] [facility] ([facility]) Body height 60 [in_i] 60 [in_i] [facility] ([facility]) 5'0" Body weight 244.00 [lb_av] 244.00 [lb_av] [facility] ([facility]) Body mass index (BMI) [Ratio] 47.6 kg/m2 47.6 k g/m2 [facility] ([facility]) Respiratory rate 18 /min 18 /min [facility] ( [facility]) Body temperature 97.7 [degF] 97.7 [degF] [facility] ([facility]) Respiratory rate 18 /min 18 /min [facility] ( [facility]) Systolic blood pressure 130 mm[Hg] 130 mm[Hg] M [facility] ([facility]) Diastolic blood pressure 78 mm[Hg] 78 mm[Hg] [facility] ([facility]) Body height 60 [in_i] 60 [in_i] [facility] ([facility]) 5'0" Body weight 244.00 [lb_av] 244.00 [lb_av] [facility] ([facility]) Body mass index (BMI) [Ratio] 47.6 kg/m2 47.6 k g/m2 [facility] ([facility]) Heart rate 102 /min 102 /min [facility] ([facility]) Body temperature 99.5 [degF] 99.5 [degF] [facility] ([facility]) Oxygen saturation in Arterial blood by Pulse oximetry 97 % 97 % [facility] ([facility]) [place] body weight 100 [lb_av] 100 [lb_av] [facility] ([facility])
[2021-06-01] MEDS ORDERED: HYDR12CA (13:14)
[2021-06-01] MEDS ORDERED: METF-838 (13:14)
[2021-06-01] MEDS ORDERED: LISI40TA4 (13:14)
[2021-06-01] MEDS ORDERED: ISOVUE-370 76% 100ML VIAL As Ordered ONE (13:34)
[2021-06-01 13:46] LABS: BASO # 0.1 10^3/uL (0.0-0.2); BASO % 0.5 % (0.0-1.0); EOS # 0.2 10^3/uL (0.0-0.5); EOS % 1.7 % (0.0-3.0); HEMATOCRIT 41.4 % (36.0-47.0); HEMOGLOBIN 13.9 g/dl (12.0-15.5); LYMPH # 3.2 10^3/uL (1.5-5.0); MEAN CORPUSCULAR HEMOGLOBIN 30.8 pg (27.0-33.0); MEAN CORPUSCULAR HGB CONC 33.6 g/dl (32.0-36.5); MEAN CORPUSCULAR VOLUME 91.6 fl (80.0-96.0); MONO # 0.7 10^3/uL (0.0-0.8); MONO % 6.4 % (2.0-8.0); NEUTROPHILS # 6.4 10^3/uL (1.5-8.5); NEUTROPHILS % 61.1 % (36.0-66.0); PLATELET COUNT, AUTOMATED 353 10^3/uL (150-450); RED BLOOD COUNT 4.52 10^6/uL (4.00-5.40); WHITE BLOOD COUNT 10.5 10^3/uL (4.0-10.0)
--- NOTE | 2021-06-01 13:48 | REP ---
INDICATION: CVA. COMPARISON: Portable chest, 10/09/2020. TECHNIQUE: AP portable chest image was obtained. FINDINGS: The lungs are clear. The heart borders, mediastinum and pulmonary vascular pattern are normal. The upper abdominal bowel gas pattern is normal. There are no bony abnormalities of the chest. IMPRESSION: No evidence of acute cardiopulmonary pathology. <Electronically signed by Stanislav Castañeda > 06/01/21 [id number]
[2021-06-01 13:56] LABS: INR 0.91; PROTHROMBIN TIME 12.7 SECONDS (12.7-14.5)
--- NOTE | 2021-06-01 14:01 | REP ---
INDICATION: CVA - Nursing interventions must not delay CT. COMPARISON: CT head, 10/26/2020. TECHNIQUE: Contiguous 5 mm thick axial projection images were obtained of the head. 2D coronal reconstructions were performed. FINDINGS: There is no evidence of acute intracranial hemorrhage or infarction. There are no abnormal intracranial masses or mass effects. There are no extra-axial masses or fluid collections. The skull base and calvarium are normal. The intraorbital contents and visualized extracranial soft tissues are normal. IMPRESSION: Normal CT head without IV contrast. <Electronically signed by Stanislav Castañeda > 06/01/21 [id number]
[2021-06-01] MEDS ORDERED: KETOROLAC 30 MG/ML 1ML VIAL IV ONE (14:05)
[2021-06-01] MEDS ORDERED: METOCLOPRAMIDE INJ 10MG/2ML VIAL (J2765 PER 1) IV ONE (14:05)
--- OUTSIDE RECORDS SUMMARY | 2021-06-01 14:15 | CCD ---
Author Author [facility] Organization [facility] Address Unknown Phone Unavailable Care Team Providers Care Mold Carrier Name Role Phone Feola, T Dilma PA [...] Unavailable TONY-ELIGIO, SARANYA DO Unavailable Unavailable TONY-ELIGIO, SAARNYA DO Unavailable Unavailable TONY-ELIGIO, ASRANYA DO Unavailable Unavailable TONY-ELIGIO, SARANYA DO Unavailable [...] Unavailable Unavailable TONY-ELIGIO, SARANYA DO Unavailable Unavailable OTNY-ELIGIO, SARANYA DO Unavailable Unavailable TONY-ELIGIO, SARANYA DO [...] Unavailable TONY-ELIGIO, SARANYA DO Unavailable Unavailable TONY-ELIGIO, SAARNYA DO Unavailable Unavailable TONY-ELIGIO, SARANYA DO Unavailable [...] Mcdowell, Adán Alfaro MD, FACS Unavailable Unavailable Jollye Mcdowell, Adán Alfaro MD, FACS Unavailable Unavailable [...] is protected by Article 27-F of the [facility] Public Health law. If you continue you may have access to information: Regarding HIV / AIDS; Provided by facilities licensed or operated by the [facility] Office of Mental Health; or Provided by the [facility] Office for People With Developmental Disabilities. If such information is present, then the following [facility] mandated warning applies: This information has [...] law may result in a fine or mcfp sentence or both. A general authorization for the release of medical or other information is NOT sufficient authorization for further disc losure. Encounters Encounter Providers Location Date Indications Data Source(s ) Outpatient Attender: SARANYA ALAS [facility] 05/06/2021 08:30:00 AM EDT [facility] Outpatient Attender: Shireen Yung MD [facility] 04/23/2021 01:45:00 PM EDT [facility] ([facility]) Outpatient Attender: SARANYA ALAS [facility] 03/12/2021 08:20:00 AM EDT [facility] ([facility]) Outpatient Attender: SARANYA ALAS [facility] 02/07/2021 09:40:00 AM EDT [facility] ([facility]) Outpatient Attender: Shireen Yung MD [facility] 01/09/2021 11:30:00 AM EDT [facility] ([facility]) Outpatient Attender: Dilma FIERRO 021 12:47:34 PM EDT - 12/26/2020 01:09:34 PM EDT [facility] ([facility] ) Outpatient Attender: Irwin FIERRO [facility] 12/03/2020 10:20:00 AM EDT [facility] ([facility]) Outpatient Attender: Irwin FIERRO [facility] 11/19/2020 01:00:00 PM EDT [facility] ([facility]) Outpatient Attender: Shireen Yung MD [facility] 11/02/2020 08:00:00 AM EDT [facility] ([facility]) Outpatient Attender: Irwin FIERRO [facility] 10/31/2020 09:40:00 AM EDT [facility] ([facility]) Outpatient Attender: Irwin FIERRO [facility] 10/15/2020 08:45:00 AM EDT [facility] ([facility]) Outpatient Attender: Irwin FIERRO [facility] 09/19/2020 12:00:00 PM EST [facility] ([facility]) Outpatient<td ID="[email or web address] [email or web address]">TESTING - VISUAL FIELD & OCT</td><td>Dominic Thornton MD, FACS</td><td>Dominic Thornton MD [facility]</td><td>05/23/2020</td><td>7:39AM</td><td>8:20AM</td><td><content ID="[email or web address]">Borderline Glaucoma Open Angle with Borderline Findings Both Eyes</content></td> Attender: Dominic Mcdowell MD, FACS Dominic Thornton MD [facility] 05/23/2020 07:39:00 AM EDT - 05/23/2020 08:20:00 AM ED T Borderline Glaucoma Open Angle with Borderline Findings Both EyesBorderline Glaucoma Open Angle with Borderline Findings Both Eyes SHERRON (Dominic Mcdowell MD [facility]) 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 Immunizations Vaccine Date Status Description Data Source(s) COVID-19 VACCINE Moderna 03/05/2021 12:00:00 AM EDT completed [facility] Vaccine Series Complete: YESThis Data wa s Submitted to [facility]. COVID-19 VACCINE Moderna 10/18/2020 12:00:00 AM EDT completed [facility] Vaccine Series Complete: NOThis Data was Submitted to [facility]. Medications Medication Brand Name Start Date Product Form Dose Route Admi nistrative Instructions Pharmacy Instructions Status Indications Reaction Description Data Source(s) 40 mg 05/19/2021 12:00:00 AM EDT tablet 30 TAKE ONE TABLET BY MOUTH EVERY DAY TAKE ONE TABLET BY MOUTH EVERY DAY SOLD: 05/20/2021 [facility] Esomeprazole 20 MG Delayed Release Oral [...] 12:00:00 AM EDT ORAL active M EDENT ([facility]) atorvastatin 20 MG Oral Tablet ATORVASTATIN CALCIUM [...] Naproxen 03/24/2021 12:00:00 AM EDT active [facility] ([facility]) 24 HR Metformin hydrochloride 500 MG Extended Release Oral T ablet METFORMIN HCL 03/12/2021 12:00:00 AM EDT tablet extended release 24 hr 120 TAKE TWO TABLETS BY MOUTH TWICE A DAY WITH FOOD TAKE TWO TABLETS BY MOUTH TWICE A DAY WITH FOOD SOLD: 03/22/2021 [facility] Aspirin 81 MG Chewable Tablet Aspirin 03/12/2021 12:00:00 AM EDT ORAL active [facility] ([facility]) 81 mg 03/12/2021 12:00:00 AM EDT [...] 12:00:00 AM EDT suspension 0 INJECT BY [facility] ([facility]) INJECT BY [facility] ([facility]) SOLD: 03/03/2021 [facility] 12.5 mg 02/07/2021 12:00:00 AM EDT capsule 30 TAKE ONE CAPSULE BY MOUTH EVERY DAY NEEDED FOR SWELLING TAKE ONE CAPSULE BY MOUTH EVERY DAY N EEDED FOR SWELLING SOLD: 03/10/2021 [facility] 24 HR Metformin hydrochloride 500 MG Extended Release Oral Tablet Metformin HCL ER 02/07/2021 12:00:00 AM EDT ORAL active [facility] ([facility]) Hydrochlorothiazide 12.5 MG Oral Capsule Hydrochlorothiazide 02/07/2021 12:00:00 AM EDT ORAL completed [facility] ([facility]) 24 HR Metformin hydrochloride 500 MG Extended [...] MAXIMUM DAILY DOSE = 2 SOLD: 02/07/2021 [facility] Alprazolam 0.5 MG Oral Tablet ALPRAZOLAM 12/25/2020 12:00:00 AM EDT ta blet 45 TAKE ONE TABLET BY MOUTH EVERY 12 HOURS NEEDED MAXIMUM DAILY DOSE = 2 TABLETS TAKE ONE TABLET BY MOUTH EVERY 12 HOURS NEEDED MAXIMUM DAILY DOSE = 2 TABLETS SOLD: 12/29/2020 [facility] Esomeprazole 20 MG Delayed Release Oral Capsule ESOMEPRAZOLE MAGNESIUM 12/03/2020 12:00:00 AM EDT capsule,delayed release(DR/EC) 30 TAKE ONE CAPSULE BY MOUTH EVERY DAY TAKE ONE CAPSULE BY MOUTH EVERY DAY SOLD: 03/03/2021 [facility] Esomeprazole 20 MG Delayed Release Oral Capsule ESOMEPRAZOLE MAGNESIUM 12/03/2020 12:00:00 AM EDT capsule,delayed release(DR/EC) 30 TAKE ONE CAPSULE BY MOUTH EVERY DAY TAKE ONE CAPSULE BY MOUTH EVERY DAY SOLD: 02/03/2021 [facility] Esomeprazole 20 MG Delayed Release Oral Capsule ESOMEPRAZOLE MAGNESIUM 12/03/2020 12:00:00 AM EDT capsule,delayed release(DR/EC) 30 TAKE ONE CAPSULE BY MOUTH EVERY DAY TAKE ONE CAPSULE BY MOUTH EVERY DAY SOLD: 03/31/2021 [facility] Esomeprazole 20 MG Delayed Release Oral Capsule ESOMEPRAZOLE MAGNESIUM 12/03/2020 12:00:00 AM EDT capsule,delayed release(DR/EC) 30 TAKE ONE CAPSULE BY MOUTH EVERY DAY TAKE ONE CAPSULE BY MOUTH EVERY DAY SOLD: 04/21/2021 [facility] Esomeprazole 20 MG Delayed Release Oral Capsule ESOMEPRAZOLE MAGNESIUM 12/03/2020 12:00:00 AM EDT capsule,delayed release(DR/EC) 30 TAKE ONE CAPSULE BY MOUTH EVERY DAY TAKE ONE CAPSULE BY MOUTH EVERY DAY SOLD: 12/09/2020 [facility] 20 mg 12/03/2020 12:00:00 AM EDT capsule,delayed release (DR/EC) 30 TAKE ONE CAPSULE BY MOUTH EVERY DAY TAKE ONE CAPSULE BY MOUTH EVERY DAY SOLD: 01/05/2021 [facility] Esomeprazole 20 MG Delayed Release Oral Capsule Esomeprazole Magnesium 12/03/2020 12:00:00 AM EDT ORAL active [facility] ([facility]) Verapamil hydrochloride 40 MG Oral Tablet Verapamil HCL 12/03/2020 12:00:00 AM EDT ORAL active [facility] ([facility]) 40 mg 11/27/2020 12:00:00 AM EDT tablet [...] 11/19/2020 12:00:00 AM EDT ORAL active [facility] ([facility]) Alprazolam 0.5 MG Oral Tablet ALPRAZOLAM [...] 11/02/2020 12:00:00 AM EDT ORAL active [facility] ([facility]) 40 mg 11/02/2020 12:00:00 AM [...] FOR UP TO 5 DAYS SOLD: 10/31/2020 [facility] In[facility] Ketorolac Tromethamine Per 15 MG (Toradol) 10/31/2020 12:00:00 AM EDT completed [facility] ([facility]) Medication administered onsite Nurte N[facility]tec 10/31/2020 12:00:00 AM EDT ORAL active [facility] ([facility]) Ketorolac Tromethamine 10 MG Oral Tablet Ketorolac Trometham ine 10/31/2020 12:00:00 AM EDT ORAL completed [facility] ([facility]) 50 mg 10/27/2020 12:00:00 AM EDT tablet [...] Butalbital/Acetaminophen/Caffeine 10/15/2020 12:00:00 AM EDT completed [facility] ([facility]) atorvastatin 20 MG Oral Tablet Atorvastatin Calcium 10/15/2020 1 2:00:00 AM EDT ORAL active [facility] ( [facility] Aspirin 81 MG Delayed Release Oral Tablet Aspirin 81 2020 12:00:00 AM EDT ORAL active [facility] ( [facility]) atorvastatin 20 MG Oral Tablet ATORVASTATIN CALCIUM 10/15/2020 1 2:00:00 AM EDT tablet 30 TAKE ONE TABLET BY MOUTH EVERY D AY AT NIGHT TAKE ONE TABLET BY MOUTH EVERY DAY AT NIGHT SOLD: 02/03/2021 [facility] 24 HR Nicotine 0.583 MG/HR Transdermal Patch Nicotine 10/15/2020 12:00:00 AM EDT active [facility] ([facility]) atorvastatin 20 MG Oral Tablet ATORVASTATIN CALCIUM 10/15/2020 1 2:00:00 AM EDT tablet 30 TAKE ONE TABLET BY MOUTH EVERY D AY AT NIGHT TAKE ONE TABLET BY MOUTH EVERY DAY AT NIGHT SOLD: 10/15/2020 [facility] 50-325-40 mg 10/15/2020 12:00:00 AM [...] 10/15/2020 12:00:00 AM EDT com pleted [facility] ([facility]) 14 mg/24 hr 10/15/2020 12:00:00 AM EDT patch 24 hour 28 APPLY 1 PATCH ONTO THE SKIN ONCE DAILY, ALTERNATE SITES APPLY 1 PATCH ONTO THE SKIN ONCE DAILY, ALTERNATE SITES SOLD: 10/15/2020 [facility] Aspirin 81 MG Delayed Release Oral Tablet Aspirin 81 2020 12:00:00 AM EDT ORAL completed [facility] ([facility]) Acetaminophen 325 MG / butalbital 50 MG / Caffeine 40 MG Oral Tablet Butalbital/Acetaminophen/Caffeine 10/15/2020 12:00:00 AM EDT completed [facility] ([facility]) 81 mg 10/15/2020 12:00:00 AM EDT tablet,delayed release (DR/EC) 30 TAKE ONE TABLET BY MOUTH EVERY DAY TAKE ONE TABLET BY MOUTH EVERY DAY SOLD: 02/03/2021 [facility] atorvastatin 20 MG Oral Tablet Atorvastatin Calcium 10/15/2020 1 2:00:00 AM EDT ORAL active [facility] ( [facility]) atorvastatin 20 MG Oral Tablet ATORVASTATIN CALCIUM 10/15/2020 1 2:00:00 AM EDT tablet 30 TAKE ONE TABLET BY MOUTH EVERY D AY AT NIGHT TAKE ONE TABLET BY MOUTH EVERY DAY AT NIGHT SOLD: 11/10/2020 [facility] 24 HR Nicotine 0.583 MG/HR Transdermal Patch Nicotine Step 2 10/15/2020 12:00:00 AM EDT completed [facility] ([facility]) 24 HR Nicotine 0.583 MG/HR Transdermal Patch Nicotine 10/15/2020 12:00:00 AM EDT completed [facility] ([facility]) 81 mg 10/15/2020 12:00:00 AM EDT tablet,delayed [...] 10/11/2020 12:00:00 AM EST ORAL active [facility] ([facility] ) Alprazolam 0.5 MG Oral Tablet ALPRAZOLAM 10/11/2020 12:00:00 AM EST ta blet 45 TAKE 1 TABLET BY MOUTH EVERY 12 HOURS NEEDED MAXIMUM DAILY DOSE = 2 TAKE 1 TABLET BY MOUTH EVERY 12 HOURS NEEDED MAXIMUM DAILY DOSE = 2 SOLD: 10/11/2020 [facility] Alprazolam 0.5 MG Oral Tablet Alprazolam 10/11/2020 12:00:00 AM EST ORAL active [facility] ([facility]) 500 mg 09/20/2020 12:00:00 AM EST tablet [...] Naproxen 09/19/2020 12:00:00 AM EST completed [facility] ([facility]) Injection Ketorolac Tromethamine Per 15 MG (Toradol) 09/19/2020 12:00:00 AM EST completed [facility] ([facility]) Medication administered onsite Acetaminophen 325 MG / Hydrocodone Bitartrate 5 MG Ora l Tablet Hydrocodone-Acetaminophen 09/19/2020 12:00:00 AM EST ORAL completed [facility] ([facility]) 20 mg 09/19/2020 12:00:00 AM EST tablet 10 TAKE TWO TABLETS BY MOUTH EVERY DAY FOR 5 DAYS TAKE TWO TABLETS BY MOUTH EVERY DAY FOR 5 DAYS SOLD: 021 [facility] 5-325 mg 09/19/2020 12:00:00 AM EST tablet 28 TAKE ONE TABLET BY MOUTH EVERY 6 HOURS NEEDED FOR PAIN MAXIMUM DAILY DOSE = 4 TAKE ONE TABLET BY MOUTH EVERY 6 HOURS NEEDED FOR PAIN MAXIMUM DAILY DOSE = 4 SOLD: 09/19/2020 [facility] Prednisone 20 MG Oral Tablet Prednisone 09/19/2020 12:00:00 AM EST ORAL completed [facility] ([facility]) Naproxen 500 MG Delayed Release Oral Tablet Naproxen 09/03 12:00:00 AM EST completed [facility] ([facility]) 20 mg 06/27/2020 12:00:00 AM EST tablet [...] type / Coverage type Policy ID Covered libertarian ID Covered libertarian's relationship to moore Policy [place] Plan Information [place]/307 [id number] SP [id number] [place] [place]/307 [id number] SP [id number] [place] 302/307 [id number] SP [id number] [place] [place] 302/307 [id number] SP [id number] [employer] [place]PO 302/307 [id number] SP [id number] [employer] - [place] Blue Cross/B lue Shield [id number] Self [id number] [place] [employer] [id number] Self [id number] [place] [employer] - [employer] [place] Blue Cross/Blue Shield [id number] Self [id number] [employer] [place] PPO 302/307 [id number] BCBS of [facility] Other 0 [id number] Self 0 BCBS of [facility] Other 0 [id number] Self 0 [employer] Commercial [id number] Self [employer] BCBS B [id number] S [id number] [employer] BCBS B [id number] S [id number] Problems, Conditions, and Diagnoses Code Display Name Description Problem Type Effective Dates Data Source(s) E78.5 Hyperlipidemia Hyperlipidemia Problem 02/07/2021 12:00: 00 AM EDT [facility] ([facility]) [id number] Numbness Numbness Problem 11/02/2020 12:00:00 AM ED T [facility] ([facility] 431422589 Complicated migraine Complicated migraine Problem 11/02/2020 12:00:00 AM EDT [facility] ([facility] [id number] 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 Borderline Glaucoma Open Angle with Borderline Findings Both Eyes Problem 05/31/2020 12:00:00 AM EDT SHERRON (Dominic Mcdowell MD [facility]) [id number] 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 Borderline Glaucoma Open Angle with Borderline Findings Both Eyes Problem 05/31/2020 12:00:00 AM EDT SHERRON (Dominic Mcdowell MD [facility]) Surgeries/Procedures Procedure Description Date Indications Data Source(s) OFFICE OUTPATIENT VISIT 25 MINUTES 05/06/2021 12:00:00 AM EDT [facility] ([facility]) OFFICE OUTPATIENT VISIT 25 MINUTES 04/23/2021 12:00:00 AM EDT [facility] ([facility] OFFICE OUTPATIENT VISIT 25 MINUTES 03/12/2021 12:00:00 AM EDT [facility] ([facility]) OFFICE OUTPATIENT VISIT 15 MINUTES 02/07/2021 12:00:00 AM EDT [facility] ([facility]) PERIODIC PREVENTIVE MED EST PATIENT 40-64YRS 12:00:00 AM EDT [facility] ([facility]) OFFICE OUTPATIENT VISIT 25 MINUTES 01/09/2021 12:00:00 AM EDT [facility] ([facility] ELECTROENCEPHALOGRAM W/REC AWAKE&ASLEEP 12/17/2020 12: 00:00 AM EDT [facility] ([facility] ELECTROENCEPHALOGRAM W/REC AWAKE&ASLEEP 12/17/2020 12: 00:00 AM EDT [facility] ([facility] Mammography (procedure) 12/12/2020 12:00:00 AM EDT [facility] ([facility]) OFFICE OUTPATIENT VISIT 25 MINUTES 12/03/2020 12:00:00 AM EDT [facility] ([facility]) OFFICE OUTPATIENT VISIT 25 MINUTES 11/19/2020 12:00:00 AM EDT [facility] ([facility]) NON-INVASIVE PHYSIOLOGIC STUDY EXTREMITY 3 LEVLS 11/10 12:00:00 AM EDT [facility] ([facility] NON-INVASIVE PHYSIOLOGIC STUDY EXTREMITY 3 LEVLS 11/10 12:00:00 AM EDT [facility] ([facility] TSTG ANS FUNCJ CARDIOVAGAL INNERVAJ PARASYMP 12:00:00 AM EDT [facility] ([facility] TESTING AUTONOMIC NERVOUS SYSTEM FUNCTION 11/10/2020 1 2:00:00 AM EDT [facility] ([facility] OFFICE OUTPATIENT NEW 60 MINUTES 11/02/2020 12:00:00 A M EDT [facility] ([facility] OFFICE OUTPATIENT VISIT 25 MINUTES 10/31/2020 12:00:00 AM EDT [facility] ([facility]) TOBACCO USE CESSATION INTERMEDIATE 3-10 MINUTES 2020 12:00:00 AM EDT [facility] ([facility]) Garza Cre W/I 7 Days Of DC, Comm W/I 2 Dys 10/15/2020 12:00:00 AM EDT [facility] ([facility]) OFFICE OUTPATIENT VISIT 15 MINUTES 09/19/2020 12:00:00 AM EST [facility] ([facility]) Visual Field Visual Field 05/23/2020 12:00:00 AM EDT Angela ERICKSON (Dominic Mcdowell MD [facility]) Scodi, optic nerve with interpretation and report Scod i, optic nerve with interpretation and report 05/23/2020 12:00:00 AM EDT PHYLLIS Oliver (Dominic Mcdowell MD [facility]) Results ID Date Data Source [id number] 04/20/2021 09:10:00 AM EDT [facility] ([facility]) Name Value Range Interpretation Code Description Data Holley rce(s) Supporting Document(s) Cholesterol Level 107 mg/dL Normal (applies to non-numeri c results) [facility] ([facility]) Triglycerides Level 90 mg/dL Normal (applies to non-nume stormy results) [facility] ([facility]) HDL Cholesterol 41 mg/dL Normal (applies to non-numeric results) [facility] ([facility]) LDL Cholesterol 48 mg/dL Normal (applies to non-numeric results) [facility] ([facility]) Non-HDL-C 66 mg/dL Normal (applies to non-numeric resul ts) [facility] ([facility]) Cholesterol Risk Ratio 2.609 Normal (applies to non-n umeric results) [facility] ([facility]) ID Date Data Source [id number] 04/20/2021 09:10:00 AM EDT [facility] ([facility]) Name Value Range Interpretation Code Description Data Holley rce(s) Supporting Document(s) Glucose, Fasting 80 mg/dL 70-100 Normal (applies to non-numeric results) [facility] ([facility]) Creatinine For GFR 0.63 mg/dL 0.55-1.30 Normal (applies to non -numeric results) [facility] ([facility]) Glomerular Filtration Rate Laboratory test result Normal (applies to non- numeric results) [facility] ([facility]) <content>Units are mL/min/1.73 m2</content>
<content></content>
<content>Chronic Kidney Disease Staging per NKF:</content>
<content></content>
<content>Stage I & II GFR >=60 Normal to Mildly Decreased</content>
<content>Stage III GFR 30-59 Moderately Decreased</content>
<content>Stage IV GFR 15-29 Severely Decreased</content>
<content>Stage V GFR <15 Very Little GFR Left</content>
<content>ESRD GFR <15 on TENNIS INSTRUCTOR</content>
<content></content> Blood Urea Nitrogen 13 mg/dL 7-18 Normal (applies to non-nume stormy results) [facility] ([facility]) Potassium Serum 4.0 meq/L 3.5-5.1 Normal (applies to non-numeric results) [facility] ([facility]) Chloride Level 105 meq/L 98-107 Normal (applies to non-numeric r esults) [facility] ([facility]) Sodium Level 140 meq/L 136-145 Normal (applies to non-numeric res ults) [facility] ([facility]) Carbon Dioxide Level 28 meq/L 21-32 Normal (applies to non-num kevin results) [facility] ([facility]) Anion Gap 7 meq/L 8-16 Below low normal [facility] ( [facility]) Calcium Level 9.1 mg/dL 8.5-10.1 Normal (applies to non-numeric re sults) [facility] ([facility]) Alt/SGPT 20 U/L 12-78 Normal (applies to non-numeric resul ts) [facility] ([facility]) Ast/Sgot 12 U/L 7-37 Normal (applies to non-numeric resul ts) [facility] ([facility]) Bilirubin,Total 0.4 mg/dL 0.2-1.0 Normal (applies to non-numeric results) [facility] ([facility]) Alkaline Phosphatase 82 U/L 45-117 Normal (applies to non-num kevin results) [facility] ([facility]) Albumin/Globulin Ratio 1.1 1.2-2.2 Below low normal [facility] ([facility]) Albumin 3.6 GM/DL 3.2-5.2 Normal (applies to non-numeric resul ts) [facility] ([facility]) Total Protein 6.9 GM/DL 6.4-8.2 Normal (applies to non-numeric re sults) [facility] ([facility]) ID Date Data Source [id number] 04/20/2021 09:10:00 AM EDT [facility] ([facility]) Name Value Range Interpretation Code Description Data Holley rce(s) Supporting Document(s) Hemoglobin A1c 5.9 % Normal (applies to non-numeric r esults) [facility] ([facility]) <content>REFERENCE RANGES:</content><br/ ><content></content>
<content><=5.6% NORMAL</content>
<content>5.7-6.4% SUGGESTS IMPAIRED GLUCOSE METABOLISM/PREDIABETIC</content>
<content>>= 6.5% ABNORMAL</content>
<content></content> Estimated Average Glucose 123 mg/dL 60-110 Above high normal [facility] ([facility]) ID Date Data Source [id number] 04/20/2021 09:10:00 AM EDT [facility] ([facility]) Name Value Range Interpretation Code Description Data Holley rce(s) Supporting Document(s) Insulin [Units/volume] in Serum or Plasma 0.8 uIU/mL 2.6-24.9 Below low normal [facility] ([facility]) Performed at: RN - [facility] [address] [id number] Affiliate Marketing Coordinator: Angeles Torres MD, Phone: [phone] ID Date Data Source [id number] 03/18/2021 12:00:00 AM EDT [facility] Name Value Range Interpretation Code Description Data Holley rce(s) Supporting Document(s) SARS-CoV2 Rapid Antigen Negative [facility] This lab was reported by Ruchi Senior. ID Date Data Source [id number] 03/02/2021 08:36:00 AM EDT [facility] ([facility]) Name Value Range Interpretation Code Description Data Holley rce(s) Supporting Document(s) Thyroid Stimulating Hormone 2.040 uIU/ML 0.358-3.740 Norm al (applies to non- numeric results) [facility] ([facility]) Free T4 0.99 ng/dL 0.76-1.46 Normal (applies to non-numeric resul ts) [facility] ([facility]) ID Date Data Source [id number] 03/02/2021 08:36:00 AM EDT [facility] ([facility]) Name Value Range Interpretation Code Description Data Holley rce(s) Supporting Document(s) Triglycerides Level 112 mg/dL Normal (applies to non-nume stormy results) [facility] ([facility]) LDL Cholesterol 42 mg/dL Normal (applies to non-numeric results) [facility] ([facility]) HDL Cholesterol 39 mg/dL Below low normal [facility] ([facility]) Cholesterol Level 103 mg/dL Normal (applies to non-numeri c results) [facility] ([facility]) Non-HDL-C 64 mg/dL Normal (applies to non-numeric resul ts) [facility] ([facility]) Cholesterol Risk Ratio 2.641 Normal (applies to non-n umeric results) [facility] ([facility]) ID Date Data Source [id number] 03/02/2021 08:36:00 AM EDT [facility] ([facility]) Name Value Range Interpretation Code Description Data Holley rce(s) Supporting Document(s) Red Blood Count 4.33 10 4.00-5.40 Normal (applies to non-numeric results) [facility] ([facility]) White Blood Count 6.1 10 4.0-10.0 Normal (applies to non-numeri c results) [facility] ([facility]) Hemoglobin 13.3 g/dL 12.0-15.5 Normal (applies to non-numeric resul ts) [facility] ([facility]) Mean Corpuscular Hemoglobin 30.7 pg 27.0-33.0 Norm al (applies to non-numeric results) [facility] ([facility]) Mean Corpuscular Volume 91.2 fl 80.0-96.0 Normal ( applies to non-numeric results) [facility] ([facility]) Hematocrit 39.5 % 36.0-47.0 Normal (applies to non-numeric resul ts) [facility] ([facility]) Mean Corpuscular HGB Conc 33.7 g/dL 32.0-36.5 Normal (applies to non-numeric results) [facility] ([facility]) Red Cell Distribution Width 13.4 % 11.5-14.5 Norm al (applies to non-numeric results) [facility] ([facility]) Platelet Count, Automated 332 10 150-450 Normal (applies to non-numeric results) [facility] ([facility]) Neutrophils % 52.6 % 36.0-66.0 Normal (applies to non-numeric re sults) [facility] ([facility]) Lymph % 39.4 % 24.0-44.0 Normal (applies to non-numeric resul ts) [facility] ([facility]) Latimer % 4.9 % 2.0-8.0 Normal (applies to non-numeric resul ts) [facility] ([facility]) Baso % 0.5 % 0.0-1.0 Normal (applies to non-numeric resul ts) [facility] ([facility]) Eos % 2.3 % 0.0-3.0 Normal (applies to non-numeric resul ts) [facility] ([facility]) Immature Granulocyte % 0.3 % 0-3.0 Normal (applies to non-n umeric results) [facility] ([facility]) Nucleated Red Blood Cell % 0.0 % 0-0 Normal (applies to n on-numeric results) [facility] ([facility]) Neutrophils # 3.2 10 1.5-8.5 Normal (applies to non-numeric re sults) [facility] ([facility]) Lymph # 2.4 10 1.5-5.0 Normal (applies to non-numeric resul ts) [facility] ([facility]) Latimer # 0.3 10 0.0-0.8 Normal (applies to non-numeric resul ts) [facility] ([facility]) Eos # 0.1 10 0.0-0.5 Normal (applies to non-numeric resul ts) [facility] ([facility]) Baso # 0.0 10 0.0-0.2 Normal (applies to non-numeric resul ts) [facility] ([facility]) ID Date Data Source [id number] 03/02/2021 08:36:00 AM EDT [facility] ([facility]) Name Value Range Interpretation Code Description Data Holley rce(s) Supporting Document(s) Glucose, Fasting 83 mg/dL 70-100 Normal (applies to non-numeric results) [facility] ([facility]) Blood Urea Nitrogen 9 mg/dL 7-18 Normal (applies to non-nume stormy results) [facility] ([facility]) Creatinine For GFR 0.69 mg/dL 0.55-1.30 Normal (applies to non -numeric results) [facility] ([facility]) Glomerular Filtration Rate Laboratory test result Normal (applies to non- numeric results) [facility] ([facility]) <content>Units are mL/min/1.73 m2</content>
<content></content>
<content>Chronic Kidney Disease Staging per NKF:</content>
<content></content>
<content>Stage I & II GFR >=60 Normal to Mildly Decreased</content>
<content>Stage III GFR 30- 59 Moderately Decreased</content>
<content>Stage IV GFR 15-29 Severely Decreased</content>
<content>Stage V GFR <15 Very Little GFR Left</content>
<content>ESRD GFR <15 on TENNIS INSTRUCTOR</content>
<content></content> Sodium Level 143 meq/L 136-145 Normal (applies to non-numeric res ults) [facility] ([facility]) Chloride Level 112 meq/L 98-107 Above high normal [facility] ([facility]) Potassium Serum 4.4 meq/L 3.5-5.1 Normal (applies to non-numeric results) [facility] ([facility]) Anion Gap 2 meq/L 8-16 Below low normal [facility] ( [facility]) Carbon Dioxide Level 29 meq/L 21-32 Normal (applies to non-num kevin results) [facility] ([facility]) Ast/Sgot 11 U/L 7-37 Normal (applies to non-numeric resul ts) [facility] ([facility]) Calcium Level 8.7 mg/dL 8.5-10.1 Normal (applies to non-numeric re sults) [facility] ([facility]) Alt/SGPT 22 U/L 12-78 Normal (applies to non-numeric resul ts) [facility] ([facility]) Bilirubin,Total 0.4 mg/dL 0.2-1.0 Normal (applies to non-numeric results) [facility] ([facility]) Alkaline Phosphatase 83 U/L 45-117 Normal (applies to non-num kevin results) [facility] ([facility]) Total Protein 6.7 GM/DL 6.4-8.2 Normal (applies to non-numeric re sults) [facility] ([facility]) Albumin 3.5 GM/DL 3.2-5.2 Normal (applies to non-numeric resul ts) [facility] ([facility]) Albumin/Globulin Ratio 1.1 1.2-2.2 Below low normal [facility] ([facility]) ID Date Data Source [id number] 12/26/2020 12:00:00 AM EDT [facility] Name Value Range Interpretation Code Description Data Holley rce(s) Supporting Document(s) SARS-CoV-2 PCR Nucleic Acid Negative [facility] This lab was ordered by Perry bailey and reported by Perry Benitez. ID Date Data Source [id number] 11/01/2020 12:02:00 PM EDT [facility] ([facility]) Name Value Range Interpretation Code Description Data Holley rce(s) Supporting Document(s) Lipase [Enzymatic activity/volume] in Serum or Plasma 121 U/L 73-393 Normal (applies to non-numeric results) [facility] ([facility]) ID Date Data Source [id number] 11/01/2020 12:02:00 PM EDT [facility] ([facility]) Name Value Range Interpretation Code Description Data Holley rce(s) Supporting Document(s) Ast/Sgot 29 U/L 7-37 Normal (applies to non-numeric resul ts) [facility] ([facility]) Bilirubin,Total 0.2 mg/dL 0.2-1.0 Normal (applies to non-numeric results) [facility] ([facility]) Alt/SGPT 24 U/L 12-78 Normal (applies to non-numeric resul ts) [facility] ([facility]) Alkaline Phosphatase 83 U/L 45-117 Normal (applies to non-num kevin results) [facility] ([facility]) Bilirubin,Direct Laboratory test result 0.0-0.2 Normal ( applies to non-numeric results) [facility] ([facility]) Total Protein 6.7 GM/DL 6.4-8.2 Normal (applies to non-numeric re sults) [facility] ([facility]) Albumin/Globulin Ratio 1.1 1.2-2.2 Below low normal [facility] Albumin 3.5 GM/DL 3.2-5.2 Normal (applies to non-numeric resul ts) [facility] ([facility]) ID Date Data Source [id number] 11/01/2020 12:02:00 PM EDT [facility] ([facility]) Name Value Range Interpretation Code Description Data Holley rce(s) Supporting Document(s) White Blood Count 10.4 10 4.0-10.0 Above high normal [facility] ([facility]) Red Blood Count 4.36 10 4.00-5.40 Normal (applies to non-numeric results) [facility] ([facility]) Hemoglobin 13.1 g/dL 12.0-15.5 Normal (applies to non-numeric resul ts) [facility] ([facility]) Hematocrit 41.2 % 36.0-47.0 Normal (applies to non-numeric resul ts) [facility] ([facility]) Mean Corpuscular Volume 94.5 fl 80.0-96.0 Normal ( applies to non-numeric results) [facility] ([facility]) Mean Corpuscular Hemoglobin 30.0 pg 27.0-33.0 Norm al (applies to non-numeric results) [facility] ([facility]) Red Cell Distribution Width 13.7 % 11.5-14.5 Norm al (applies to non-numeric results) [facility] ([facility]) Mean Corpuscular HGB Conc 31.8 g/dL 32.0-36.5 Below low normal [facility] ([facility]) Platelet Count, Automated 313 10 150-450 Normal (applies to non-numeric results) [facility] ([facility]) Lymph % 19.1 % 24.0-44.0 Below low normal [facility] ( [facility]) Neutrophils % 72.9 % 36.0-66.0 Above high normal [facility] ([facility]) Lat[place] % 6.0 % 2.0-8.0 Normal (applies to non-numeric resul ts) [facility] ([facility]) Eos % 1.5 % 0.0-3.0 Normal (applies to non-numeric resul ts) [facility] ([facility]) Baso % 0.2 % 0.0-1.0 Normal (applies to non-numeric resul ts) [facility] ([facility]) Neutrophils # 7.6 10 1.5-8.5 Normal (applies to non-numeric re sults) [facility] ([facility]) Immature Granulocyte % 0.3 % 0-3.0 Normal (applies to non-n umeric results) [facility] ([facility]) Nucleated Red Blood Cell % 0.0 % 0-0 Normal (applies to n on-numeric results) [facility] ([facility]) Latimer # 0.6 10 0.0-0.8 Normal (applies to non-numeric resul ts) [facility] ([facility]) Lymph # 2.0 10 1.5-5.0 Normal (applies to non-numeric resul ts) [facility] ([facility]) Eos # 0.2 10 0.0-0.5 Normal (applies to non-numeric resul ts) [facility] ([facility]) Baso # 0.0 10 0.0-0.2 Normal (applies to non-numeric resul ts) [facility] ([facility]) ID Date Data Source [id number] 11/01/2020 12:02:00 PM EDT [facility] ([facility]) Name Value Range Interpretation Code Description Data Holley rce(s) Supporting Document(s) Laboratory test finding (navigational concept) 39.0 % 3 8.0-51.0 Normal (applies to non-numeric results) [facility] ([facility]) Laboratory test finding (navigational concept) 71 mg/dL 7 0-105 Normal (applies to non-numeric results) [facility] ([facility]) Laboratory test finding (navigational concept) 141 meq/L 1 36-145 Normal (applies to non-numeric results) [facility] ([facility]) Laboratory test finding (navigational concept) 4.5 meq/L 3 .5-5.1 Normal (applies to non-numeric results) [facility] ([facility]) Laboratory test finding (navigational concept) 4.7 mg/dL 4 .5-5.3 Normal (applies to non-numeric results) [facility] ([facility]) Laboratory test finding (navigational concept) 109 meq/L 9 8-109 Normal (applies to non-numeric results) [facility] ([facility]) Laboratory test finding (navigational concept) 27.0 MM/L 2 3.0-27.0 Normal (applies to non-numeric results) [facility] ([facility]) Laboratory test finding (navigational concept) 7 mg/dL 8-26 Below low normal [facility] ([facility]) Laboratory test finding (navigational concept) 0.6 mg/dL 0 .6-1.3 Normal (applies to non-numeric results) [facility] ([facility]) ID Date Data Source [id number] 10/31/2020 10:15:00 AM EDT [facility] ([facility]) Name Value Range Interpretation Code Description Data Holley rce(s) Supporting Document(s) Inhouse Leukocytes Laboratory test result [facility] ([facility]) Inhouse Nitrite Laboratory test result [facility] ([facility]) Inhouse Urobilinogen Laboratory test result [facility] ([facility]) Inhouse Protein Laboratory test result [facility] ([facility]) Inhouse PH 7 [facility] ([facility]) Inhouse Hemoglobin Laboratory test result [facility] ([facility]) Inhouse Bilirubin Laboratory test result [facility] ([facility]) Inhouse Ketones Laboratory test result [facility] ([facility]) Inhouse Specific Karval 1.010 [facility] ([facility]) Inhouse Glucose Laboratory test result [facility] ([facility]) ID Date Data Source [id number] 10/31/2020 10:10:00 AM EDT [facility] ([facility]) Name Value Range Interpretation Code Description Data Holley rce(s) Supporting Document(s) Bacteria identified in Urine by Culture Laboratory test result Normal (applies to non-numeric results) [facility] ([facility]) FULL REPORT IN LAB NOTES ([facility] and [facility] ). SPECIMEN APPEARS CONTAMINATED ID Date Data Source [id number] 10/09/2020 02:41:00 PM EST [facility] Name Value Range Interpretation Code Description Data Holley rce(s) Supporting Document(s) SARS coronavirus 2 RNA [Presence] in Res piratory specimen by NEELIMA with probe detection NEGATIVE [facility] This lab was ordered by [facility] a nd reported by [facility]. ID Date Data Source [id number] 10/09/2020 09:22:00 AM EST [facility] ([facility]) Name Value Range Interpretation Code Description Data Holley rce(s) Supporting Document(s) CPK Creatine Phosphokinase 56 U/L 26-192 Marce l (applies to non-numeric results) [facility] ([facility]) CK-MB Value Mass Laboratory test result Normal ( applies to non-numeric results) [facility] ([facility]) MB/CK Relative Index 1.79 Normal (applies to non-num kevin results) [facility] ([facility]) <content>DIAGNOSIS CRITERIA</content>
<content>MMB ng/ml Relative Index (RI)</content>
<content>NON-AMI < or = 5 N/A</content>
<content>ADAMS ZONE > 5 < or = 4</content>
<content>AMI > 5 > 4</content>
<content></content> Troponin I Laboratory test result Normal (applies to non-n umeric results) [facility] ([facility]) <content>Troponin I Reference Interval f or Siemens [place] LOCI:</content>
<content></content>
<content>99th Percentile= 0.00-0.045 ng/ml</content>
<content></content>
<content>Risk Stratification:</content>
<content><= 0.10 ng/ml Decreased Risk for Adverse Clinical</content>
<content>Events.</content>
<content>0.10-1.50 ng/ml Increased Risk for Adverse Clinical</content>
<content>Events. Evaluation of additional</content>
<content>criterion and/or repeat testing in 2-6</content>
<content>hours is suggested to rule out myocardial</content>
<content>damage.</content>
<content>>= 1.50 ng/ml Indicative of Myocardial Injury.</content>
<content></content> ID Date Data Source [id number] 10/09/2020 09:22:00 AM EST [facility] ([facility]) Name Value Range Interpretation Code Description Data Holley rce(s) Supporting Document(s) Ast/Sgot 10 U/L 7-37 Normal (applies to non-numeric resul ts) [facility] ([facility]) Alt/SGPT 23 U/L 12-78 Normal (applies to non-numeric resul ts) [facility] ([facility]) Alkaline Phosphatase 73 U/L 45-117 Normal (applies to non-num kevin results) [facility] ([facility]) Bilirubin,Total 0.2 mg/dL 0.2-1.0 Normal (applies to non-numeric results) [facility] ([facility]) Total Protein 6.8 GM/DL 6.4-8.2 Normal (applies to non-numeric re sults) [facility] ([facility]) Bilirubin,Direct Laboratory test result 0.0-0.2 Normal ( applies to non-numeric results) [facility] ([facility]) Albumin 3.5 GM/DL 3.2-5.2 Normal (applies to non-numeric resul ts) [facility] ([facility]) Albumin/Globulin Ratio 1.1 1.2-2.2 Below low normal [facility] ([facility]) ID Date Data Source [id number] 10/09/2020 09:22:00 AM EST [facility] ([facility]) Name Value Range Interpretation Code Description Data Holley rce(s) Supporting Document(s) Glucose, Fasting 90 mg/dL 70-100 Normal (applies to non-numeric results) [facility] ([facility]) Creatinine For GFR 0.65 mg/dL 0.55-1.30 Normal (applies to non -numeric results) [facility] ([facility]) Blood Urea Nitrogen 9 mg/dL 7-18 Normal (applies to non-nume stormy results) [facility] ([facility]) Sodium Level 141 meq/L 136-145 Normal (applies to non-numeric res ults) [facility] ([facility]) Glomerular Filtration Rate Laboratory test result Normal (applies to non- numeric results) [facility] ([facility]) <content>Units are mL/min/1.73 m2</content>
<content></content>
<content>Chronic Kidney Disease Staging per NKF:</content>
<content></content>
<content>Stage I & II GFR >=60 Normal to Mildly Decreased</content>
<content>Stage III GFR 30- 59 Moderately Decreased</content>
<content>Stage IV GFR 15-29 Severely Decreased</content>
<content>Stage V GFR <15 Very Little GFR Left</content>
<content>ESRD GFR <15 on TENNIS INSTRUCTOR</content>
<content></content> Potassium Serum 4.1 meq/L 3.5-5.1 Normal (applies to non-numeric results) [facility] ([facility]) Chloride Level 111 meq/L 98-107 Above high normal [facility] ([facility]) Carbon Dioxide Level 25 meq/L 21-32 Normal (applies to non-num kevin results) [facility] Anion Gap 5 meq/L 8-16 Below low normal [facility] ( [facility]) Calcium Level 8.5 mg/dL 8.5-10.1 Normal (applies to non-numeric re sults) [facility] ([facility]) ID Date Data Source [id number] 10/09/2020 09:22:00 AM EST [facility] ([facility]) Name Value Range Interpretation Code Description Data Holley rce(s) Supporting Document(s) Choriogonadotropin.beta subunit ( test) [Pres ence] in Serum or Plasma Laboratory test result Normal (applies to non-numeric results) [facility] ([facility]) ID Date Data Source [id number] 10/09/2020 09:22:00 AM EST [facility] ([facility]) Name Value Range Interpretation Code Description Data Holley rce(s) Supporting Document(s) Prothrombin Time 12.9 s 12.5-14.3 Normal (applies to non-numeric results) [facility] ([facility]) Inr 0.95 Normal (applies to non-numeric resul ts) [facility] ([facility]) THERAPUTIC HUMAN INR VALUES INDICATIONS NORMAL RANGES PROPHYLAXIS/TREATMENT OF: VENOUS THROMBOSIS 2.0-3.0 PULMONARY EMBOLISM 2.0-3.0 PREVENTION OF SYSTEMIC EMBOLISM FROM: TISSUE HEART VALVES 2.0-3.0 ACUTE MYOCARDIAL INFARCTION 2.0-3.0 VALVULAR HEART DISEASE 2.0-3.0 ATRIAL FIBRILLATION 2.0-3.0 MECHANICAL VALVES(HIGH RISK) 2.5-3.5 RECURRENT MYOCARDIAL INFARCTION 2.5-3.5 ID Date Data Source [id number] 10/09/2020 09:22:00 AM EST [facility] ([facility]) Name Value Range Interpretation Code Description Data Holley rce(s) Supporting Document(s) aPTT in Platelet poor plasma by Coagulation assay 28.3 s 24.2-38.5 Normal (applies to non-numeric results) [facility] ([facility]) ID Date Data Source [id number] 10/09/2020 09:22:00 AM EST [facility] Name Value Range Interpretation Code Description Data Holley rce(s) Supporting Document(s) Hemoglobin 12.9 g/dL 12.0-15.5 Normal (applies to non-numeric resul ts) [facility] ([facility]) Red Blood Count 4.30 10 4.00-5.40 Normal (applies to non-numeric results) [facility] ([facility]) White Blood Count 6.8 10 4.0-10.0 Normal (applies to non-numeri c results) [facility] ([facility]) Hematocrit 39.2 % 36.0-47.0 Normal (applies to non-numeric resul ts) [facility] ([facility]) Mean Corpuscular Volume 91.2 fl 80.0-96.0 Normal ( applies to non-numeric results) [facility] ([facility]) Mean Corpuscular HGB Conc 32.9 g/dL 32.0-36.5 Normal (applies to non-numeric results) [facility] ([facility]) Mean Corpuscular Hemoglobin 30.0 pg 27.0-33.0 Norm al (applies to non-numeric results) [facility] ([facility]) Platelet Count, Automated 311 10 150-450 Normal (applies to non-numeric results) [facility] ([facility]) Red Cell Distribution Width 13.4 % 11.5-14.5 Norm al (applies to non-numeric results) [facility] ([facility]) Neutrophils % 62.8 % 36.0-66.0 Normal (applies to non-numeric re sults) [facility] ([facility]) Lymph % 28.7 % 24.0-44.0 Normal (applies to non-numeric resul ts) [facility] ([facility]) [place] % 5.9 % 2.0-8.0 Normal (applies to non-numeric resul ts) [facility] ([facility]) Eos % 1.8 % 0.0-3.0 Normal (applies to non-numeric resul ts) [facility] ([facility]) Baso % 0.4 % 0.0-1.0 Normal (applies to non-numeric resul ts) [facility] ([facility]) Immature Granulocyte % 0.4 % 0-3.0 Normal (applies to non-n umeric results) [facility] ([facility]) Nucleated Red Blood Cell % 0.0 % 0-0 Normal (applies to n on-numeric results) [facility] ([facility]) Neutrophils # 4.3 10 1.5-8.5 Normal (applies to non-numeric re sults) [facility] ([facility]) Lymph # 2.0 10 1.5-5.0 Normal (applies to non-numeric resul ts) [facility] ([facility]) Latimer # 0.4 10 0.0-0.8 Normal (applies to non-numeric resul ts) [facility] ([facility]) Baso # 0.0 10 0.0-0.2 Normal (applies to non-numeric resul ts) [facility] ([facility]) Eos # 0.1 10 0.0-0.5 Normal (applies to non-numeric resul ts) [facility] ([facility]) ID Date Data Source [id number] 10/06/2020 09:48:00 PM EST [facility] ([facility]) Name Value Range Interpretation Code Description Data Holley rce(s) Supporting Document(s) Creatinine For GFR 0.68 mg/dL 0.55-1.30 Normal (applies to non -numeric results) [facility] ([facility]) Glucose, Fasting 106 mg/dL 70-100 Above high normal [facility] ([facility]) Blood Urea Nitrogen 12 mg/dL 7-18 Normal (applies to non-nume stormy results) [facility] ([facility]) Sodium Level 143 meq/L 136-145 Normal (applies to non-numeric res ults) [facility] ([facility]) Glomerular Filtration Rate Laboratory test result Normal (applies to non- numeric results) [facility] ([facility]) <content>Units are mL/min/1.73 m2</content>
<content></content>
<content>Chronic Kidney Disease Staging per NKF:</content>
<content></content>
<content>Stage I & II GFR >=60 Normal to Mildly Decreased</content>
<content>Stage III GFR 30- 59 Moderately Decreased</content>
<content>Stage IV GFR 15-29 Severely Decreased</content>
<content>Stage V GFR <15 Very Little GFR Left</content>
<content>ESRD GFR <15 on TENNIS INSTRUCTOR</content>
<content></content> Chloride Level 111 meq/L 98-107 Above high normal [facility] ([facility]) Potassium Serum 3.9 meq/L 3.5-5.1 Normal (applies to non-numeric results) [facility] ([facility]) Carbon Dioxide Level 27 meq/L 21-32 Normal (applies to non-num kevin results) [facility] ([facility]) Anion Gap 5 meq/L 8-16 Below low normal [facility] ( [facility]) Calcium Level 8.9 mg/dL 8.5-10.1 Normal (applies to non-numeric re sults) [facility] ([facility]) ID Date Data Source [id number] 10/06/2020 09:48:00 PM EST [facility] ([facility]) Name Value Range Interpretation Code Description Data Holley rce(s) Supporting Document(s) Hemoglobin 12.4 g/dL 12.0-15.5 Normal (applies to non-numeric resul ts) [facility] ([facility]) Red Blood Count 4.13 10 4.00-5.40 Normal (applies to non-numeric results) [facility] ([facility]) White Blood Count 7.9 10 4.0-10.0 Normal (applies to non-numeri c results) [facility] ([facility]) Hematocrit 37.7 % 36.0-47.0 Normal (applies to non-numeric resul ts) [facility] ([facility]) Mean Corpuscular Volume 91.3 fl 80.0-96.0 Normal ( applies to non-numeric results) [facility] ([facility]) Mean Corpuscular HGB Conc 32.9 g/dL 32.0-36.5 Normal (applies to non-numeric results) [facility] ([facility]) Mean Corpuscular Hemoglobin 30.0 pg 27.0-33.0 Norm al (applies to non-numeric results) [facility] ([facility]) Platelet Count, Automated 314 10 150-450 Normal (applies to non-numeric results) [facility] ([facility]) Red Cell Distribution Width 13.6 % 11.5-14.5 Norm al (applies to non-numeric results) [facility] ([facility]) Neutrophils % 55.0 % 36.0-66.0 Normal (applies to non-numeric re sults) [facility] ([facility]) Lymph % 36.2 % 24.0-44.0 Normal (applies to non-numeric resul ts) [facility] ([facility]) Latimer % 5.8 % 2.0-8.0 Normal (applies to non-numeric resul ts) [facility] ([facility]) Baso % 0.5 % 0.0-1.0 Normal (applies to non-numeric resul ts) [facility] ([facility]) Eos % 2.1 % 0.0-3.0 Normal (applies to non-numeric resul ts) [facility] ([facility]) Nucleated Red Blood Cell % 0.0 % 0-0 Normal (applies to n on-numeric results) [facility] ([facility]) Immature Granulocyte % 0.4 % 0-3.0 Normal (applies to non-n umeric results) [facility] ([facility]) Neutrophils # 4.4 10 1.5-8.5 Normal (applies to non-numeric re sults) [facility] ([facility]) [place] # 0.5 10 0.0-0.8 Normal (applies to non-numeric resul ts) [facility] ([facility]) Lymph # 2.9 10 1.5-5.0 Normal (applies to non-numeric resul ts) [facility] ([facility]) Eos # 0.2 10 0.0-0.5 Normal (applies to non-numeric resul ts) [facility] ([facility]) Baso # 0.0 10 0.0-0.2 Normal (applies to non-numeric resul ts) [facility] ([facility]) ID Date Data Source [id number] 04/25/2020 12:00:00 PM EDT [facility] ([facility]) Name Value Range Interpretation Code Description Data Holley rce(s) Supporting Document(s) Coronavirus 2019 Nasopharygeal Laboratory test result [facility] ([facility]) This nucleic acid amplification test was developed and its performance characteristics determined by [employer]. Nucleic acid amplification tests include PCR and [...] detected) result in this assay. Performed at: - [facility] [address] [id number] Affiliate Marketing Coordinator: Angeles Torres MD, Phone: [phone] Not Detected ID Date Data Source [id number] 04/25/2020 12:00:00 PM EDT [facility] Name Value Range Interpretation Code Description Data Holley rce(s) Supporting Document(s) SARS coronavirus 2 RNA [facility] This lab was ordered by [facility] and reported by [facility]. ID Date Data Source [id number] 04/21/2020 02:31:00 AM EDT [facility] ([facility]) Name Value Range Interpretation Code Description Data Holley rce(s) Supporting Document(s) Laboratory test finding (navigational concept) 0.00 ng/mL 0 .00-0.08 Normal (applies to non-numeric results) [facility] ([facility]) ID Date Data Source [id number] 04/20/2020 11:11:00 PM EDT [facility] ([facility]) Name Value Range Interpretation Code Description Data Holley rce(s) Supporting Document(s) Laboratory test finding (navigational concept) 0.00 ng/mL 0 .00-0.08 Normal (applies to non-numeric results) [facility] ([facility]) ID Date Data Source [id number] 04/20/2020 11:08:00 PM EDT [facility] ([facility]) Name Value Range Interpretation Code Description Data Holley rce(s) Supporting Document(s) Glucose, Fasting 101 mg/dL 70-100 Above high normal [facility] ([facility]) Creatinine For GFR 1.08 mg/dL 0.55-1.30 Normal (applies to non -numeric results) [facility] ([facility]) Blood Urea Nitrogen 11 mg/dL 7-18 Normal (applies to non-nume stormy results) [facility] ([facility]) Sodium Level 143 meq/L 136-145 Normal (applies to non-numeric res ults) [facility] ([facility]) Potassium Serum 4.0 meq/L 3.5-5.1 Normal (applies to non-numeric results) [facility] ([facility]) Glomerular Filtration Rate 59.2 Normal (applies to n on-numeric results) [facility] ([facility]) <content>Units are mL/min/1.73 m2</content>
<content></content>
<content>Chronic Kidney Disease Staging per NKF:</content>
<content></content>
<content>Stage I & II GFR >=60 Normal to Mildly Decreased</content>
<content>Stage III GFR 30- 59 Moderately Decreased</content>
<content>Stage IV GFR 15-29 Severely Decreased</content>
<content>Stage V GFR <15 Very Little GFR Left</content>
<content>ESRD GFR <15 on [employer]</content>
<content></content> Carbon Dioxide Level 26 meq/L 21-32 Normal (applies to non-num kevin results) [facility] ([facility]) Chloride Level 112 meq/L 98-107 Above high normal [facility] ([facility]) Anion Gap 5 meq/L 8-16 Below low normal [facility] ( [facility]) Calcium Level 8.4 mg/dL 8.5-10.1 Below low normal [facility] ([facility]) ID Date Data Source [id number] 04/20/2020 11:08:00 PM EDT [facility] ([facility]) Name Value Range Interpretation Code Description Data Holley rce(s) Supporting Document(s) Red Blood Count 4.17 10 4.00-5.40 Normal (applies to non-numeric results) [facility] ([facility]) White Blood Count 5.9 10 4.0-10.0 Normal (applies to non-numeri c results) [facility] ([facility]) Hemoglobin 12.7 g/dL 12.0-15.5 Normal (applies to non-numeric resul ts) [facility] ([facility]) Mean Corpuscular Volume 91.1 fl 80.0-96.0 Normal ( applies to non-numeric results) [facility] ([facility]) Mean Corpuscular Hemoglobin 30.5 pg 27.0-33.0 Norm al (applies to non-numeric results) [facility] ([facility]) Hematocrit 38.0 % 36.0-47.0 Normal (applies to non-numeric resul ts) [facility] ([facility]) Platelet Count, Automated 328 10 150-450 Normal (applies to non-numeric results) [facility] ([facility]) Red Cell Distribution Width 13.2 % 11.5-14.5 Norm al (applies to non-numeric results) [facility] ([facility]) Mean Corpuscular HGB Conc 33.4 g/dL 32.0-36.5 Normal (applies to non-numeric results) [facility] ([facility]) Lymph % 41.7 % 24.0-44.0 Normal (applies to non-numeric resul ts) [facility] ([facility]) Neutrophils % 49.6 % 36.0-66.0 Normal (applies to non-numeric re sults) [facility] ([facility]) [place] % 6.3 % 0.0-5.0 Above high normal [facility] ([facility]) Immature Granulocyte % 0.2 % 0-3.0 Normal (applies to non-n umeric results) [facility] ([facility]) Eos % 1.7 % 0.0-3.0 Normal (applies to non-numeric resul ts) [facility] ([facility]) Baso % 0.5 % 0.0-1.0 Normal (applies to non-numeric resul ts) [facility] ([facility]) Neutrophils # 2.9 10 1.5-8.5 Normal (applies to non-numeric re sults) [facility] ([facility]) Lymph # 2.4 10 1.5-5.0 Normal (applies to non-numeric resul ts) [facility] ([facility]) Nucleated Red Blood Cell % 0.0 % 0-0 Normal (applies to n on-numeric results) [facility] ([facility]) [place] # 0.4 10 0.0-0.8 Normal (applies to non-numeric resul ts) [facility] ([facility]) Eos # 0.1 10 0.0-0.5 Normal (applies to non-numeric resul ts) [facility] ([facility]) Baso # 0.0 10 0.0-0.2 Normal (applies to non-numeric resul ts) [facility] ([facility]) Procedure Social History Code Duration Value Status Description Data Source(s ) Smoking 03/25/2021 06:24:49 PM EDT Smokes tobacco daily (findi ng) completed Smokes tobacco daily (finding) [facility] (Dominic Mcdowell [facility]) Vital Signs ID Date Data Source UNK Name Value Range Interpretation Code Description Data Source(s) Systolic blood pressure 126 mm[Hg] 126 mm[Hg] M [facility] ([facility]) Diastolic blood pressure 76 mm[Hg] 76 mm[Hg] [facility] ([facility]) Body height 60 [in_i] 60 [in_i] [facility] ([facility]) 5'0" Body weight 237.12 [lb_av] 237.12 [lb_av] [facility] ([facility]) Body mass index (BMI) [Ratio] 46.3 kg/m2 46.3 k g/m2 [facility] ([facility]) Heart rate 93 /min 93 /min [facility] ([facility]) Respiratory rate 18 /min 18 /min [facility] ( [facility]) Body temperature 98.9 [degF] 98.9 [degF] [facility] ([facility]) Oxygen saturation in Arterial blood by Pulse oximetry 98 % 98 % [facility] ([facility]) [place] body weight 100 [lb_av] 100 [lb_av] [facility] ([facility]) Respiratory rate 12 /min 12 /min [facility] ( [facility], ) Body height 61 [in_i] 61 [in_i] [facility] ([facility], ) 5'1" Body weight 233.00 [lb_av] 233.00 [lb_av] [facility] ([facility], ) Body mass index (BMI) [Ratio] 44.0 kg/m2 44.0 k g/m2 [facility] ([facility] ) [place] body weight 105 [lb_av] 105 [lb_av] [facility] ([facility]) Diastolic blood pressure 88 mm[Hg] 88 mm[Hg] [facility] ([facility]) Body height 60 [in_i] 60 [in_i] [facility] ([facility]) 5'0" Body weight 244.00 [lb_av] 244.00 [lb_av] [facility] ([facility]) Body temperature 98.6 [degF] 98.6 [degF] [facility] ([facility]) Oxygen saturation in Arterial blood by Pulse oximetry 96 % 96 % [facility] ([facility]) [place] body weight 100 [lb_av] 100 [lb_av] [facility] ([facility]) Systolic blood pressure 132 mm[Hg] 132 mm[Hg] M [facility] ([facility]) Body mass index (BMI) [Ratio] 47.6 kg/m2 47.6 k g/m2 [facility] ([facility]) Heart rate 90 /min 90 /min [facility] ([facility]) Respiratory rate 18 /min 18 /min [facility] ( [facility]) Heart rate 74 /min 74 /min [facility] ([facility]) [place] body weight 100 [lb_av] 100 [lb_av] [facility] ([facility]) Body mass index (BMI) [Ratio] 48.0 kg/m2 48.0 k g/m2 [facility] ([facility]) Respiratory rate 18 /min 18 /min [facility] ( [facility]) Body temperature 97.9 [degF] 97.9 [degF] [facility] ([facility]) Systolic blood pressure 148 mm[Hg] 148 mm[Hg] M [facility] ([facility]) Diastolic blood pressure 86 mm[Hg] 86 mm[Hg] [facility] ([facility]) Body height 60 [in_i] 60 [in_i] [facility] ([facility]) 5'0" Body weight 246.00 [lb_av] 246.00 [lb_av] [facility] ([facility]) Oxygen saturation in Arterial blood by Pulse oximetry 97 % 97 % [facility] ([facility]) Respiratory rate 12 /min 12 /min [facility] ( [facility] ) Body height 61 [in_i] 61 [in_i] [facility] ([facility] ) 5'1" Body weight 240.00 [lb_av] 240.00 [lb_av] [facility] ([facility], ) Body mass index (BMI) [Ratio] 45.3 kg/m2 45.3 k g/m2 [facility] ([facility] ) [place] body weight 105 [lb_av] 105 [lb_av] [facility] ([facility] ) Diastolic blood pressure 82 mm[Hg] 82 mm[Hg] [facility] ([facility]) Systolic blood pressure 128 mm[Hg] 128 mm[Hg] M [facility] ([facility]) Body mass index (BMI) [Ratio] 48.5 kg/m2 48.5 k g/m2 [facility] ([facility]) Body height 60 [in_i] 60 [in_i] [facility] ([facility]) 5'0" Body temperature 99.4 [degF] 99.4 [degF] [facility] ([facility]) Body weight 248.38 [lb_av] 248.38 [lb_av] [facility] ([facility]) Respiratory rate 18 /min 18 /min [facility] ( [facility]) Oxygen saturation in Arterial blood by Pulse oximetry 97 % 97 % [facility] ([facility]) [place] body weight 100 [lb_av] 100 [lb_av] [facility] ([facility]) Heart rate 99 /min 99 /min [facility] ([facility]) Diastolic blood pressure 88 mm[Hg] 88 mm[Hg] [facility] ([facility]) Body height 60 [in_i] 60 [in_i] [facility] ([facility]) 5'0" Systolic blood pressure 158 mm[Hg] 158 mm[Hg] [facility] ([facility]) Body weight 249.50 [lb_av] 249.50 [lb_av] [facility] ([facility]) Body mass index (BMI) [Ratio] 48.7 kg/m2 48.7 k g/m2 [facility] ([facility]) Heart rate 91 /min 91 /min [facility] ([facility]) Respiratory rate 18 /min 18 /min [facility] ( [facility]) Body temperature 98.9 [degF] 98.9 [degF] [facility] ([facility]) Oxygen saturation in Arterial blood by Pulse oximetry 97 % 97 % [facility] ([facility]) [place] body weight 100 [lb_av] 100 [lb_av] [facility] ([facility]) Respiratory rate 12 /min 12 /min [facility] ( [facility] ) Body height 61 [in_i] 61 [in_i] [facility] ([facility] ) 5'1" Body weight 240.00 [lb_av] 240.00 [lb_av] [facility] ([facility], ) Body mass index (BMI) [Ratio] 45.3 kg/m2 45.3 k g/m2 [facility] ([facility] ) [place] body weight 105 [lb_av] 105 [lb_av] [facility] ([facility] ) Oxygen saturation in Arterial blood by Pulse oximetry 97 % 97 % [facility] ([facility]) [place] body weight 100 [lb_av] 100 [lb_av] [facility] ([facility]) Systolic blood pressure 128 mm[Hg] 128 mm[Hg] M [facility] ([facility]) Diastolic blood pressure 80 mm[Hg] 80 mm[Hg] [facility] ([facility]) Body height 60 [in_i] 60 [in_i] [facility] ([facility]) 5'0" Body weight 247.25 [lb_av] 247.25 [lb_av] [facility] ([facility]) Body mass index (BMI) [Ratio] 48.3 kg/m2 48.3 k g/m2 [facility] ([facility]) Heart rate 94 /min 94 /min [facility] ([facility]) Respiratory rate 18 /min 18 /min [facility] ( [facility]) Body temperature 97.2 [degF] 97.2 [degF] [facility] ([facility]) Oxygen saturation in Arterial blood by Pulse oximetry 96 % 96 % [facility] ([facility]) [place] body weight 100 [lb_av] 100 [lb_av] [facility] ([facility]) Heart rate 84 /min 84 /min [facility] ([facility]) Systolic blood pressure 126 mm[Hg] 126 mm[Hg] M [facility] ([facility]) Diastolic blood pressure 72 mm[Hg] 72 mm[Hg] [facility] ([facility]) Body height 60 [in_i] 60 [in_i] [facility] ([facility]) 5'0" Body weight 244.00 [lb_av] 244.00 [lb_av] [facility] ([facility]) Body mass index (BMI) [Ratio] 47.6 kg/m2 47.6 k g/m2 [facility] ([facility]) Respiratory rate 18 /min 18 /min [facility] ( [facility]) Body temperature 97.7 [degF] 97.7 [degF] [facility] ([facility]) Systolic blood pressure 130 mm[Hg] 130 mm[Hg] M [facility] ([facility]) Diastolic blood pressure 78 mm[Hg] 78 mm[Hg] [facility] ([facility]) Body height 60 [in_i] 60 [in_i] [facility] ([facility]) 5'0" Respiratory rate 18 /min 18 /min [facility] ( [facility]) Body weight 244.00 [lb_av] 244.00 [lb_av] [facility] ([facility]) Body mass index (BMI) [Ratio] 47.6 kg/m2 47.6 k g/m2 [facility] ([facility]) Heart rate 102 /min 102 /min [facility] ([facility]) Body temperature 99.5 [degF] 99.5 [degF] [facility] ([facility]) Oxygen saturation in Arterial blood by Pulse oximetry 97 % 97 % [facility] ([facility]) [place] body weight 100 [lb_av] 100 [lb_av] [facility] ([facility])
[2021-06-01 14:22] LABS: CK-MB VALUE MASS < 1.0 NG/ML (<3.6); CPK CREATINE PHOSPHOKINASE 117 U/L (26-192); MB/CK RELATIVE INDEX 0.85 (< OR =4); TROPONIN I < 0.02 NG/ML (< 0.10)
--- NOTE | 2021-06-01 14:28 | REPVR ---
PROCEDURE INFORMATION: Exam: CT Angiography Neck With Contrast Exam date and time: 06/01/2021 1:39 PM Age: 45 years old Clinical indication: Numbness; Additional info: CVA - nursing interventions must not delay CT TECHNIQUE: Imaging protocol: Computed tomography angiography of the neck with contrast. Axial, coronal and sagittal reformatted images were created and reviewed. 3D rendering (Not supervised by radiologist): MIP and/or 3D reconstructed images were created by the technologist. Radiation optimization: All CT scans at this facility use at least one of these dose optimization techniques: automated exposure control; mA and/or kV adjustment per patient size (includes targeted exams where dose is matched to clinical indication); or iterative reconstruction. Contrast material: ISOVUE 370; Contrast volume: 75 ml; Contrast route: INTRAVENOUS (IV); COMPARISON: CT Head without contrast 10/26/2020 6:43 PM FINDINGS: Right common carotid artery: No stenosis. No dissection or occlusion. Right internal carotid artery: Normal. Extracranial segment patent with no significant stenosis. No dissection or occlusion. Right external carotid artery: No occlusion or stenosis of the origin. Left common carotid artery: No stenosis. No dissection or occlusion. Left internal carotid artery: Normal. Extracranial segment patent with no significant stenosis. No dissection or occlusion. Left external carotid artery: No occlusion or stenosis of the origin. Right vertebral artery: No stenosis. No dissection or occlusion. Left vertebral artery: No stenosis. No dissection or occlusion. Soft tissues: Unremarkable. Bones/joints: No acute osseous abnormality. Lungs: Nonspecific subsegmental left upper lobe consolidation. IMPRESSION: 1. No acute vascular abnormality. 2. Nonspecific subsegmental left upper lobe consolidation, possibly due to atelectasis. Infection cannot be excluded. 3. Additional findings, as above. REFERENCES: NASCET CRITERIA. The degree of internal carotid artery stenosis is based on NASCET criteria. Normal is no stenosis. Mild is less than 50% stenosis. Moderate is 50-69% stenosis. Severe is 70% to 99% stenosis. Total occlusion is no detectable patent lumen. Electronically signed by: Irwin Juarez On 06/01/2021 14:28:21 PM
--- NOTE | 2021-06-01 14:30 | REPVR ---
PROCEDURE INFORMATION: Exam: CT Angiography Head With Contrast, Arteriography Exam date and time: 06/01/2021 1:39 PM Age: 45 years old Clinical indication: Numbness; Additional info: CVA - nursing interventions must not delay CT TECHNIQUE: Imaging protocol: Computed tomography angiography of the head with contrast. Exam focused on the arteries. Axial, coronal and sagittal reformatted images were created and reviewed. 3D rendering (Not supervised by radiologist): MIP and/or 3D reconstructed images were created by the technologist. Radiation optimization: All CT scans at this facility use at least one of these dose optimization techniques: automated exposure control; mA and/or kV adjustment per patient size (includes targeted exams where dose is matched to clinical indication); or iterative reconstruction. Contrast material: ISOVUE 370; Contrast volume: 75 ml; Contrast route: INTRAVENOUS (IV); COMPARISON: CT Head without contrast 10/26/2020 6:43 PM FINDINGS: ANTERIOR CIRCULATION: Right internal carotid artery: Unremarkable. Intracranial segment is patent with no significant stenosis. No aneurysm. Right middle cerebral artery: Unremarkable. No occlusion or significant stenosis. No aneurysm. Right anterior cerebral artery: Unremarkable. No occlusion or significant stenosis. No aneurysm. Left internal carotid artery: Unremarkable. Intracranial segment is patent with no significant stenosis. No aneurysm. Left middle cerebral artery: Unremarkable. No occlusion or significant stenosis. No aneurysm. Left anterior cerebral artery: Unremarkable. No occlusion or significant stenosis. No aneurysm. POSTERIOR CIRCULATION: Right vertebral artery: Unremarkable. No occlusion or significant stenosis. No aneurysm. Left vertebral artery: Unremarkable. No occlusion or significant stenosis. No aneurysm. Basilar artery: Unremarkable. No occlusion or significant stenosis. No aneurysm. Right posterior cerebral artery: Unremarkable. No occlusion or significant stenosis. No aneurysm. Left posterior cerebral artery: Unremarkable. No occlusion or significant stenosis. No aneurysm. Brain: No definite mass, mass effect, or midline shift. Cerebral ventricles: No ventriculomegaly. Bones/joints: Unremarkable. No acute fracture. Soft tissues: Unremarkable. IMPRESSION: No acute vascular pathology. Electronically signed by: Irwin Juarez On 06/01/2021 14:29:46 PM
--- NOTE | 2021-06-01 20:05 | ECGEPIP ---
[facility] - ED Test Date: 2021-06-01 Pat Name: JENARO VALIENTE Department: Room: - Gender: Female [employer]ist: : 1975 Requested By: Mynor Cheek Order Number: [id number] Reading MD: Annamarie Smith Measurements Intervals [place] Rate: 89 P: 1 [place]: 124 QRS: 20 QRSD: 76 T: 30 QT: 352 QTc: 428 Interpretive Statements Normal sinus rhythm NSTTW abnormalities increased rate 10/09/20 Electronically Signed on 06-01-2021 20:05:30 EDT by Annamarie Smith
== END 2021-06-01 15:58 | disposition home or self-care (01) ==
LOC: M ED 13:04
DX: G43.809 Other migraine, not intractable, without status migrainosus (principal); Z79.899 Other long term (current) drug therapy; Z79.84 Long term (current) use of oral hypoglycemic drugs; Z79.82 Long term (current) use of aspirin
CPT/HCPCS: 36415; 70450; 70496; 70498; 71045; 80047; 82550; 82553; 84484; 85025; 85610; 85730; 93005; 93041; 94760; 96374; 96375; 99284; J1885; J2765; Q9967

== ENCOUNTER → 2021-10-02 | Outpatient (CLI) | payer BC ==
[~2021-10-02] MED LIST changes: +HYDR12CA; +LISI40TA4; +METF-838
[2021-10-02 08:39] LABS: ALBUMIN 3.8 GM/DL (3.2-5.2); ALT/SGPT 30 U/L (12-78); BILIRUBIN,TOTAL 0.3 MG/DL (0.2-1.0); BLOOD UREA NITROGEN 13 MG/DL (7-18); CALCIUM LEVEL 9.1 MG/DL (8.5-10.1); CARBON DIOXIDE LEVEL 31 MEQ/L (21-32); CHLORIDE LEVEL 106 MEQ/L (98-107); CREATININE FOR GFR 0.71 MG/DL (0.55-1.30); GLOMERULAR FILTRATION RATE > 60.0 (>58); GLUCOSE, FASTING 92 MG/DL (70-100); POTASSIUM SERUM 3.8 MEQ/L (3.5-5.1); SODIUM LEVEL 140 MEQ/L (136-145); TOTAL PROTEIN 7.4 GM/DL (6.4-8.2)
[2021-10-02 09:46] LABS: HEMOGLOBIN A1c 5.6 %
== END ==
LOC: M LAB 07:33
PROVIDERS: ATTEND Family Medicine
DX: E88.81 Metabolic syndrome and other insulin resistance (principal)

== ENCOUNTER → 2021-10-11 | Outpatient (CLI) | payer BC | LOC: M WHC 09:00 | PROVIDERS: ATTEND Physician Assistant | DX: D25.9 Leiomyoma of uterus, unspecified (principal) ==

== ENCOUNTER → 2022-01-16 | Outpatient (CLI) | payer BC ==
[2022-01-16 08:10] LABS: BASO % 0.5 % (0.0-1.0); EOS # 0.1 10^3/uL (0.0-0.5); EOS % 1.7 % (0.0-3.0); HEMATOCRIT 39.6 % (36.0-47.0); LYMPH # 2.1 10^3/uL (1.5-5.0); LYMPH % 35.6 % (24.0-44.0); MEAN CORPUSCULAR HEMOGLOBIN 30.7 pg (27.0-33.0); MEAN CORPUSCULAR HGB CONC 32.8 g/dl (32.0-36.5); MEAN CORPUSCULAR VOLUME 93.4 fl (80.0-96.0); MONO # 0.4 10^3/uL (0.0-0.8); MONO % 6.8 % (2.0-8.0); NEUTROPHILS # 3.2 10^3/uL (1.5-8.5); NEUTROPHILS % 55.1 % (36.0-66.0); PLATELET COUNT, AUTOMATED 334 10^3/uL (150-450); RED BLOOD COUNT 4.24 10^6/uL (4.00-5.40); WHITE BLOOD COUNT 5.8 10^3/uL (4.0-10.0)
[2022-01-16 08:43] LABS: ALBUMIN 3.8 GM/DL (3.2-5.2); ALT/SGPT 26 U/L (12-78); BILIRUBIN,TOTAL 0.4 MG/DL (0.2-1.0); BLOOD UREA NITROGEN 11 MG/DL (7-18); CALCIUM LEVEL 9.8 MG/DL (8.5-10.1); CARBON DIOXIDE LEVEL 29 MEQ/L (21-32); CHLORIDE LEVEL 107 MEQ/L (98-107); CREATININE FOR GFR 0.82 MG/DL (0.55-1.30); GLOMERULAR FILTRATION RATE > 60.0 (>58); GLUCOSE, FASTING 93 MG/DL (70-100); POTASSIUM SERUM 4.9 MEQ/L (3.5-5.1); SODIUM LEVEL 141 MEQ/L (136-145); TOTAL PROTEIN 6.8 GM/DL (6.4-8.2)
[2022-01-16 08:47] LABS: TOTAL 25(OH) VITAMIN D 24.4 NG/ML (30.0-100.0)
[2022-01-16 08:51] LABS: HEMOGLOBIN A1c 5.6 %
== END ==
LOC: M LAB 06:53
PROVIDERS: ATTEND Physician Assistant
DX: E88.81 Metabolic syndrome and other insulin resistance (principal)

== ENCOUNTER → 2022-10-27 | Outpatient (CLI) | payer BC | LOC: M WHC 09:00 | PROVIDERS: ATTEND Physician Assistant | DX: Z12.31 Encounter for screening mammogram for malignant neoplasm of breast (principal) ==

== ENCOUNTER → 2022-12-26 | Outpatient (CLI) | payer BC ==
[2022-12-26 07:33] LABS: BASO % 0.5 % (0.0-1.0); EOS # 0.1 10^3/uL (0.0-0.5); EOS % 1.3 % (0.0-3.0); HEMATOCRIT 41.5 % (36.0-47.0); HEMOGLOBIN 13.6 g/dl (12.0-15.5); LYMPH # 2.7 10^3/uL (1.5-5.0); LYMPH % 33.8 % (24.0-44.0); MEAN CORPUSCULAR HEMOGLOBIN 30.6 pg (27.0-33.0); MEAN CORPUSCULAR HGB CONC 32.8 g/dl (32.0-36.5); MEAN CORPUSCULAR VOLUME 93.5 fl (80.0-96.0); MONO # 0.4 10^3/uL (0.0-0.8); MONO % 5.6 % (2.0-8.0); NEUTROPHILS # 4.6 10^3/uL (1.5-8.5); NEUTROPHILS % 58.5 % (36.0-66.0); PLATELET COUNT, AUTOMATED 384 10^3/uL (150-450); RED BLOOD COUNT 4.44 10^6/uL (4.00-5.40); WHITE BLOOD COUNT 7.9 10^3/uL (4.0-10.0)
[2022-12-26 07:54] LABS: HEMOGLOBIN A1c 5.2 % (4.0-6.0)
[2022-12-26 08:00] LABS: ALBUMIN 3.9 G/DL (3.2-5.2); ALKALINE PHOSPHATASE 74 U/L (46-116); ALT/SGPT 17 U/L (7.0-40); AST/SGOT 13 U/L (<34); BILIRUBIN,TOTAL 0.3 MG/DL (0.3-1.2); BLOOD UREA NITROGEN 21 MG/DL (9-23); CALCIUM LEVEL 9.2 MG/DL (8.5-10.1); CARBON DIOXIDE LEVEL 28 MMOL/L (20-31); CHLORIDE LEVEL 105 MMOL/L (98-107); CHOLESTEROL LEVEL 117 MG/DL (<200); CHOLESTEROL RISK RATIO 2.92 (<5); CREATININE FOR GFR 1.05 MG/DL (0.55-1.30); GLOMERULAR FILTRATION RATE > 60.0 (>58); GLUCOSE, FASTING 85 MG/DL (60-100); LDL CHOLESTEROL 51.6 MG/DL (<100); POTASSIUM SERUM 4.7 MMOL/L (3.5-5.1); SODIUM LEVEL 137 MMOL/L (136-145); TOTAL PROTEIN 6.6 G/DL (5.7-8.2); TRIGLYCERIDES LEVEL 127 MG/DL (<150)
[2022-12-26 08:01] LABS: FREE T4 1.17 NG/DL (0.89-1.76)
[2022-12-26 08:02] LABS: FOLATE 8.5 NG/ML (>5.4); THYROID STIMULATING HORMONE 1.893 uIU/ML (0.55-4.78); TOTAL 25(OH) VITAMIN D 60.5 NG/ML (20.0-100.0)
[2022-12-26 08:03] LABS: VITAMIN B12 LEVEL 1036 PG/ML (211-911)
== END ==
LOC: M LAB 06:57
PROVIDERS: ATTEND Physician Assistant
DX: E78.5 Hyperlipidemia, unspecified (principal); E88.81 Metabolic syndrome and other insulin resistance; I10 Essential (primary) hypertension

== ENCOUNTER 2022-12-28 18:48 | Emergency (ER) | payer BC ==
[~2022-12-28] VITALS: Ht 154.9 cm; Wt 87.8 kg
[2022-12-28 18:49] VITALS: BP 113/79
== END 2022-12-28 20:45 | disposition left against medical advice (07) ==
LOC: M ED 18:48
DX: R10.9 Unspecified abdominal pain (principal); Z53.21 Procedure and treatment not carried out due to patient leaving prior to being seen by health care provider

== ENCOUNTER → 2023-07-31 | Outpatient (CLI) | payer BC ==
[~2023-07-31] MED LIST changes: -HYDR12CA; +HYDR12CA PO; +LISI30TA4 PO; -METF-838; +METF-838 PO; +PROA1AER2 INH; +VITA100093 PO
[2023-07-31 08:17] LABS: BLOOD UREA NITROGEN 16 MG/DL (9-23); CARBON DIOXIDE LEVEL 28 MMOL/L (20-31); CHLORIDE LEVEL 109 MMOL/L (98-107); CREATININE FOR GFR 0.67 MG/DL (0.55-1.30); GLOMERULAR FILTRATION RATE > 60.0 (>58); GLUCOSE, FASTING 75 MG/DL (60-100); POTASSIUM SERUM 4.6 MMOL/L (3.5-5.1); SODIUM LEVEL 141 MMOL/L (136-145)
== END ==
LOC: M EKG 06:14
PROVIDERS: ATTEND Anesthesiology
DX: Z01.818 Encounter for other preprocedural examination (principal)

== ENCOUNTER 2023-12-04 06:08 | Day surgery (SDC) | payer BC ==
[2023-08-12] MEDS: ceFAZolin SOD 2 GM in IV 1 EA IV ONE (07:25)
[~2023-12-04] VITALS: Ht 154.9 cm; Wt 107.0 kg
[2023-12-04] MEDS ORDERED: LR 1,000 ML IV SCH (06:35)
[2023-12-04 06:38] LABS: HEMATOCRIT 37.2 % (36.0-47.0); HEMOGLOBIN 12.7 g/dl (12.0-15.5); MEAN CORPUSCULAR HEMOGLOBIN 31.2 pg (27.0-33.0); MEAN CORPUSCULAR HGB CONC 34.1 g/dl (32.0-36.5); MEAN CORPUSCULAR VOLUME 91.4 fl (80.0-96.0); PLATELET COUNT, AUTOMATED 324 10^3/uL (150-450); RED BLOOD COUNT 4.07 10^6/uL (4.00-5.40); WHITE BLOOD COUNT 7.4 10^3/uL (4.0-10.0)
[2023-12-04] MEDS: METHYLENE BLUE 0.5% (5MG/ML) 10 ML AMP (PROVAYBLUE) As Ordered ONE (07:11)
[2023-12-04 07:15] LABS: BLOOD UREA NITROGEN 16 MG/DL (9-23); CALCIUM LEVEL 8.7 MG/DL (8.5-10.1); CARBON DIOXIDE LEVEL 25 MMOL/L (20-31); CHLORIDE LEVEL 110 MMOL/L (98-107); CREATININE FOR GFR 0.66 MG/DL (0.55-1.30); GLOMERULAR FILTRATION RATE > 60.0 (>58); GLUCOSE, FASTING 95 MG/DL (60-100); POTASSIUM SERUM 4.2 MMOL/L (3.5-5.1); SODIUM LEVEL 142 MMOL/L (136-145)
[2023-12-04] MEDS: ceFAZolin SOD 2 GM in IV 1 EA IV ONE (07:25)
[2023-12-04] MEDS: ceFAZolin SOD 1 GM in D5W MINI-BAG PLUS 50 ML IV ONE (07:25)
[2023-12-04] MEDS ORDERED: ROCURONIUM BROMIDE 50MG/5ML VIAL As Ordered ONE (07:55)
[2023-12-04] MEDS ORDERED: SUGAMMADEX SODIUM 500 MG/5 ML VIAL (BRIDION) As Ordered ONE (07:55)
[2023-12-04] MEDS ORDERED: HYDROmorphone HCL 2MG/ML 1ML VIAL As Ordered ONE (07:55)
[2023-12-04] MEDS ORDERED: propofoL 200 MG/20 ML VIAL As Ordered ONE (07:55)
[2023-12-04] MEDS ORDERED: dexmedeTOMIDine (4MCG/ML)200MCG/50ML BTL (PRECEDEX) As Ordered ONE (07:55)
[2023-12-04] MEDS ORDERED: fentaNYL 100 MCG/2 ML INJECTION As Ordered ONE (07:55)
[2023-12-04] MEDS ORDERED: ONDANSETRON 4MG 2ML VIAL As Ordered ONE (07:55)
[2023-12-04] MEDS ORDERED: MIDAZOLAM INJ 2MG/2ML VIAL As Ordered ONE (07:55)
[2023-12-04] MEDS ORDERED: LIDOCAINE 2% 100MG/5ML SDV (FOR ANES.) As Ordered ONE (07:55)
[2023-12-04] MEDS ORDERED: ACETAMINOPHEN 1000MG 100ML IV BAG As Ordered ONE (07:56)
[2023-12-04] MEDS ORDERED: ALBUTEROL 6.7GM INHALER **FOR ANES. CART/OMNICELL ONLY As Ordered ONE (07:57)
[2023-12-04] MEDS ORDERED: HOME MED LIST COMPLETE! XX SCH (08:20)
[2023-12-04] MEDS: DOCUSATE SODIUM 100MG CAPSULE PO SCH (09:00)
[2023-12-04] MEDS ORDERED: METOCLOPRAMIDE INJ 10MG/2ML VIAL IV PRN (10:05)
[2023-12-04] MEDS ORDERED: oxyCODONE 5MG TAB PO PRN (10:05)
[2023-12-04] MEDS ORDERED: HYDROMORPHONE HCL 0.5 MG/ 0.5 ML SYRINGE IV PRN (10:05)
[2023-12-04] MEDS ORDERED: fentaNYL 100 MCG/2 ML INJECTION IV PRN (10:05)
[2023-12-04] MEDS: LR 1,000 ML IV SCH (10:25)
[2023-12-04] MEDS ORDERED: PROMETHAZINE 25MG/ML 1ML VIAL IV PRN (10:25)
[2023-12-04] MEDS ORDERED: MORPHINE 4 MG/ML 1ML VIAL IV PRN (10:25)
[2023-12-04] MEDS ORDERED: ONDANSETRON 4MG 2ML VIAL IV PRN (10:25)
[2023-12-04] MEDS ORDERED: PERCOCET 5MG/325MG TAB PO PRN ×2 (10:25)
[2023-12-04] MEDS ORDERED: COLA100C5 PO (10:33)
[2023-12-04] MEDS ORDERED: IBUP1TAB7 PO (10:33)
[2023-12-04] MEDS ORDERED: PERCOCET PO (10:33)
[2023-12-04 11:20] VITALS: BP 108/56; TEMP 97.1; O2SAT 94
[2023-12-04] MEDS: KETOROLAC 30 MG/ML 1ML VIAL IV SCH (11:29)
[2023-12-04 11:50] VITALS: BP 108/65; TEMP 96.5; O2SAT 94
[2023-12-04 12:20] VITALS: BP 111/69; TEMP 97; O2SAT 94
[2023-12-04 13:20] VITALS: BP 115/69; TEMP 97.7; O2SAT 97
[2023-12-04 14:20] VITALS: BP 108/68; TEMP 97.7; O2SAT 100
== END 2023-12-04 14:55 | disposition home or self-care (01) ==
LOC: M SDC 06:08 → M OBS 10:21 → M ED INP 10:21 → UNDOADMOB 10:21 → M OBS 11:05 → M ED INP 11:05 → UNDODISOB 14:55 → M SDC 14:55
PROVIDERS: ATTEND Obstetrics & Gynecology
DX: D25.9 Leiomyoma of uterus, unspecified (principal); N87.9 Dysplasia of cervix uteri, unspecified; N88.8 Other specified noninflammatory disorders of cervix uteri; N83.8 Other noninflammatory disorders of ovary, fallopian tube and broad ligament; N83.01 Follicular cyst of right ovary; N83.02 Follicular cyst of left ovary; N83.12 Corpus luteum cyst of left ovary; N73.6 Female pelvic peritoneal adhesions (postinfective); N93.9 Abnormal uterine and vaginal bleeding, unspecified; R10.2 Pelvic and perineal pain; R06.83 Snoring; Z86.73 Personal history of transient ischemic attack (TIA), and cerebral infarction without residual deficits; I10 Essential (primary) hypertension; K21.9 Gastro-esophageal reflux disease without esophagitis; G43.909 Migraine, unspecified, not intractable, without status migrainosus; J45.909 Unspecified asthma, uncomplicated; Z79.899 Other long term (current) drug therapy; Z79.82 Long term (current) use of aspirin; F17.210 Nicotine dependence, cigarettes, uncomplicated
CPT/HCPCS: 36415; 58571; 58662; 80048; 81025; 85027; 86850; 86900; 86901; 88305; 88307; J0131; J0665; J0690; J1100; J1170; J1885; J2250; J2405; J3010; Q9968; S2900

== ENCOUNTER 2023-12-08 14:41 | Emergency (ER) | payer BC ==
[~2023-12-08] VITALS: Ht 154.9 cm; Wt 108.4 kg
[~2023-12-08 14:41] MED LIST changes: +COLA100C5 PO; +IBUP1TAB7 PO; +PERCOCET PO
[2023-12-08 14:42] VITALS: BP 170/87; TEMP 97.9; O2SAT 96
== END 2023-12-08 16:15 | disposition left against medical advice (07) ==
LOC: M ED 14:41
DX: Z53.21 Procedure and treatment not carried out due to patient leaving prior to being seen by health care provider (principal)

== ENCOUNTER → 2024-04-14 | Outpatient (CLI) | payer BC ==
[2024-04-14 06:57] LABS: BASO % 0.5 % (0.0-1.0); EOS # 0.2 10^3/uL (0.0-0.5); EOS % 3.5 % (0.0-3.0); HEMATOCRIT 39.5 % (36.0-47.0); LYMPH # 1.9 10^3/uL (1.5-5.0); LYMPH % 33.9 % (24.0-44.0); MEAN CORPUSCULAR HEMOGLOBIN 30.1 pg (27.0-33.0); MEAN CORPUSCULAR HGB CONC 32.9 g/dl (32.0-36.5); MEAN CORPUSCULAR VOLUME 91.4 fl (80.0-96.0); MONO # 0.4 10^3/uL (0.0-0.8); NEUTROPHILS % 54.9 % (36.0-66.0); PLATELET COUNT, AUTOMATED 360 10^3/uL (150-450); RED BLOOD COUNT 4.32 10^6/uL (4.00-5.40); WHITE BLOOD COUNT 5.5 10^3/uL (4.0-10.0)
[2024-04-14 07:18] LABS: HEMOGLOBIN A1c 5.9 % (4.0-6.0)
[2024-04-14 07:25] LABS: ALBUMIN 3.6 G/DL (3.2-5.2); ALKALINE PHOSPHATASE 115 U/L (46-116); ALT/SGPT 17 U/L (7.0-40); AST/SGOT 11 U/L (<34); BILIRUBIN,TOTAL 0.4 MG/DL (0.3-1.2); BLOOD UREA NITROGEN 11 MG/DL (9-23); CALCIUM LEVEL 9.5 MG/DL (8.5-10.1); CARBON DIOXIDE LEVEL 30 MMOL/L (20-31); CHLORIDE LEVEL 110 MMOL/L (98-107); CHOLESTEROL LEVEL 138 MG/DL (<200); CHOLESTEROL RISK RATIO 3.52 (<5); CREATININE FOR GFR 0.83 MG/DL (0.55-1.30); GLOMERULAR FILTRATION RATE > 60.0 (>58); GLUCOSE, FASTING 100 MG/DL (60-100); HDL CHOLESTEROL 39.2 MG/DL (>40); LDL CHOLESTEROL 72.2 MG/DL (<100); NON-HDL-C 98.8 MG/DL; POTASSIUM SERUM 4.3 MMOL/L (3.5-5.1); SODIUM LEVEL 141 MMOL/L (136-145); TOTAL PROTEIN 6.8 G/DL (5.7-8.2); TRIGLYCERIDES LEVEL 133 MG/DL (<150)
[2024-04-14 07:26] LABS: THYROID STIMULATING HORMONE 2.509 uIU/ML (0.55-4.78); TOTAL 25(OH) VITAMIN D 47.4 NG/ML (20.0-100.0)
[2024-04-14 07:27] LABS: FREE T4 1.18 NG/DL (0.89-1.76); TESTOSTERONE 21 NG/DL (14-76)
== END ==
LOC: M LAB 06:12
PROVIDERS: ATTEND Physician Assistant
DX: E78.5 Hyperlipidemia, unspecified (principal); I10 Essential (primary) hypertension; E88.810 Metabolic syndrome; Z79.899 Other long term (current) drug therapy

== ENCOUNTER → 2024-04-19 | Outpatient (CLI) | payer BC | LOC: M WHC 08:28 | PROVIDERS: ATTEND Physician Assistant | DX: Z12.31 Encounter for screening mammogram for malignant neoplasm of breast (principal) ==

== ENCOUNTER 2024-06-10 07:29 | Day surgery (SDC) | payer BC ==
[~2024-06-10] VITALS: Ht 154.9 cm; Wt 114.8 kg
[2024-06-10] MEDS ORDERED: LIDOCAINE 2% 100MG/5ML SDV (FOR ANES.) As Ordered ONE (08:02)
[2024-06-10] MEDS ORDERED: propofoL 200 MG/20 ML VIAL As Ordered ONE (08:02)
[2024-06-10 08:28] VITALS: TEMP 97.8
[2024-06-10 08:47] VITALS: BP 116/71; O2SAT 97
== END 2024-06-10 08:53 | disposition home or self-care (01) ==
LOC: M OPP 07:29
PROVIDERS: ATTEND Surgery
DX: Z12.11 Encounter for screening for malignant neoplasm of colon (principal); Z12.12 Encounter for screening for malignant neoplasm of rectum; D12.5 Benign neoplasm of sigmoid colon; D12.3 Benign neoplasm of transverse colon; K64.9 Unspecified hemorrhoids; K21.9 Gastro-esophageal reflux disease without esophagitis; I10 Essential (primary) hypertension; J45.909 Unspecified asthma, uncomplicated; Z79.899 Other long term (current) drug therapy; Z79.82 Long term (current) use of aspirin; F17.210 Nicotine dependence, cigarettes, uncomplicated; Z90.710 Acquired absence of both cervix and uterus

== ENCOUNTER → 2024-08-02 | Outpatient (CLI) | payer BC ==
[2024-08-02 07:12] LABS: BASO % 0.4 % (0.0-1.0); EOS # 0.1 10^3/uL (0.0-0.5); EOS % 1.9 % (0.0-3.0); HEMATOCRIT 37.7 % (36.0-47.0); HEMOGLOBIN 12.5 g/dl (12.0-15.5); LYMPH # 1.9 10^3/uL (1.5-5.0); LYMPH % 26.6 % (24.0-44.0); MEAN CORPUSCULAR HEMOGLOBIN 30.3 pg (27.0-33.0); MEAN CORPUSCULAR HGB CONC 33.2 g/dl (32.0-36.5); MEAN CORPUSCULAR VOLUME 91.3 fl (80.0-96.0); MONO # 0.5 10^3/uL (0.0-0.8); MONO % 6.5 % (2.0-8.0); NEUTROPHILS # 4.7 10^3/uL (1.5-8.5); NEUTROPHILS % 64.2 % (36.0-66.0); PLATELET COUNT, AUTOMATED 382 10^3/uL (150-450); RED BLOOD COUNT 4.13 10^6/uL (4.00-5.40); WHITE BLOOD COUNT 7.3 10^3/uL (4.0-10.0)
[2024-08-02 07:44] LABS: ALBUMIN 3.4 G/DL (3.2-5.2); ALKALINE PHOSPHATASE 92 U/L (35-104); ALT/SGPT 21 U/L (7.0-40); AST/SGOT 13 U/L (<34); BILIRUBIN,TOTAL 0.3 MG/DL (0.3-1.2); BLOOD UREA NITROGEN 11 MG/DL (9-23); CALCIUM LEVEL 9.2 MG/DL (8.5-10.1); CARBON DIOXIDE LEVEL 28 MMOL/L (20-31); CHLORIDE LEVEL 107 MMOL/L (98-107); CHOLESTEROL LEVEL 135 MG/DL (<200); CHOLESTEROL RISK RATIO 3.26 (<5); CREATININE FOR GFR 0.68 MG/DL (0.55-1.30); FREE T4 0.99 NG/DL (0.89-1.76); GLOMERULAR FILTRATION RATE > 60.0 (>58); GLUCOSE, FASTING 96 MG/DL (60-100); HDL CHOLESTEROL 41.4 MG/DL (>40); LDL CHOLESTEROL 58.8 MG/DL (<100); NON-HDL-C 93.6 MG/DL; POTASSIUM SERUM 3.8 MMOL/L (3.5-5.1); SODIUM LEVEL 143 MMOL/L (136-145); TESTOSTERONE 21 NG/DL (14-76); THYROID STIMULATING HORMONE 2.101 uIU/ML (0.55-4.78); TOTAL 25(OH) VITAMIN D 48.6 NG/ML (20.0-100.0); TOTAL PROTEIN 6.7 G/DL (5.7-8.2); TRIGLYCERIDES LEVEL 174 MG/DL (<150)
[2024-08-02 07:56] LABS: HEMOGLOBIN A1c 5.7 % (4.0-6.0)
== END ==
LOC: M LAB 06:11
PROVIDERS: ATTEND Physician Assistant
DX: E78.5 Hyperlipidemia, unspecified (principal); I10 Essential (primary) hypertension; E88.810 Metabolic syndrome; Z79.899 Other long term (current) drug therapy

== ENCOUNTER 2024-09-15 08:30 | Emergency (ER) | payer BC, OTHER ==
[~2024-09-15] VITALS: Ht 154.9 cm; Wt 113.6 kg
[2024-09-15 09:13] LABS: BASO % 0.4 % (0.0-1.0); EOS # 0.1 10^3/uL (0.0-0.5); EOS % 1.1 % (0.0-3.0); HEMATOCRIT 36.5 % (36.0-47.0); HEMOGLOBIN 12.6 g/dl (12.0-15.5); LYMPH # 1.8 10^3/uL (1.5-5.0); LYMPH % 24.2 % (24.0-44.0); MEAN CORPUSCULAR HEMOGLOBIN 30.2 pg (27.0-33.0); MEAN CORPUSCULAR HGB CONC 34.5 g/dl (32.0-36.5); MEAN CORPUSCULAR VOLUME 87.5 fl (80.0-96.0); MONO # 0.5 10^3/uL (0.0-0.8); MONO % 6.1 % (2.0-8.0); NEUTROPHILS % 67.8 % (36.0-66.0); PLATELET COUNT, AUTOMATED 409 10^3/uL (150-450); RED BLOOD COUNT 4.17 10^6/uL (4.00-5.40); WHITE BLOOD COUNT 7.4 10^3/uL (4.0-10.0)
[2024-09-15] MEDS: ASPIRIN 81MG CHEW TABLET PO ONE (09:20)
[2024-09-15] MEDS ORDERED: BUPR150T12 (09:24)
[2024-09-15 09:45] LABS: CK-MB VALUE MASS < 1.0 NG/ML (<3.6)
[2024-09-15 09:46] LABS: LIPASE 32 U/L (12-53)
[2024-09-15 09:48] LABS: ALBUMIN 3.4 G/DL (3.2-5.2); ALKALINE PHOSPHATASE 107 U/L (35-104); ALT/SGPT 15 U/L (7.0-40); AST/SGOT 20 U/L (<34); BILIRUBIN,DIRECT 0.1 MG/DL (<0.4); BILIRUBIN,TOTAL 0.4 MG/DL (0.3-1.2); BLOOD UREA NITROGEN 12 MG/DL (9-23); CALCIUM LEVEL 8.6 MG/DL (8.5-10.1); CARBON DIOXIDE LEVEL 27 MMOL/L (20-31); CHLORIDE LEVEL 104 MMOL/L (98-107); CREATININE FOR GFR 0.76 MG/DL (0.55-1.30); GLOMERULAR FILTRATION RATE > 60.0 (>58); GLUCOSE, FASTING 88 MG/DL (60-100); POTASSIUM SERUM 3.6 MMOL/L (3.5-5.1); SODIUM LEVEL 141 MMOL/L (136-145); TOTAL PROTEIN 6.9 G/DL (5.7-8.2)
[2024-09-15 09:52] LABS: CPK CREATINE PHOSPHOKINASE 122 U/L (34-145); MB/CK RELATIVE INDEX 0.81 (< OR =4)
[2024-09-15] MEDS ORDERED: ISOVUE-370 76% 100ML VIAL As Ordered ONE (10:40)
[2024-09-15 11:01] LABS: CK-MB VALUE MASS < 1.0 NG/ML (<3.6)
[2024-09-15 11:04] LABS: CPK CREATINE PHOSPHOKINASE 110 U/L (34-145)
[2024-09-15 11:44] VITALS: BP 120/69; TEMP 97; O2SAT 97
== END 2024-09-15 11:45 | disposition home or self-care (01) ==
LOC: M ED 08:30
DX: R07.89 Other chest pain (principal); K21.9 Gastro-esophageal reflux disease without esophagitis; I10 Essential (primary) hypertension; E78.5 Hyperlipidemia, unspecified; Z87.891 Personal history of nicotine dependence; Z79.1 Long term (current) use of non-steroidal anti-inflammatories (NSAID); Z79.51 Long term (current) use of inhaled steroids; Z79.84 Long term (current) use of oral hypoglycemic drugs; Z79.899 Other long term (current) drug therapy
CPT/HCPCS: 36415; 71045; 71275; 80048; 80076; 82550; 82553; 83690; 84484; 85025; 93005; 93041; 94760; 99285; Q9967